=== PATIENT | female | born 1955 | race Caucasian/White ===

== ENCOUNTER → 2022-01-02 17:27 | Outpatient (CLI) | payer MEDICARE, OTHER, SELFPAY ==
--- NOTE | ~2022-01-02 | MR_ITS ---
. EXAMINATION: MR shoulder RT wo con DATE: 01/02/2022 18:04 INDICATION: Anterior right shoulder pain. TECHNIQUE: Magnetic resonance imaging (MRI) of the right shoulder was performed without intravenous c ontrast. Sequences included axial PD-weighted FS FSE, coronal oblique PD-weighted FS FSE and T2-weigh zeb FS FSE, and sagittal oblique T2-weighted FS FSE and T1-weighted FSE. COMPARISON: Right shoulder radiographs 10/10/2021 FINDINGS: Coracoacromial arch: The acromion undersurface is flat in morphology (type I). There is moderate acromioclavicular joint o steoarthritis. There is moderate subacromial/subdeltoid bursitis. Rotator cuff: There is a full-thickness tear of supraspinatus and anterior infraspinatus tendons measuring 2.5 cm a nterior to posterior by 3.2 cm anterior posterior. Partial tear of posterior infraspinatus tendon ext ends 5.1 cm proximal to distal. Teres minor tendon is normal. There is severe subscapularis tendinopa thy. There is a bursal-sided partial tear of distal subscapularis tendon. There is mild fatty atrophy of supraspinatus, infraspinatus, and subscapularis muscle bellies. Biceps tendon and glenoid labrum: Biceps tendon is medially displaced from bicipital groove into the subscapularis tendon tear. There i s a partial tear of biceps tendon. There is tearing of the posterior and superior glenoid labrum. Fluid: There is a small glenohumeral joint effusion. Bones/cartilage: There is shallow partial-thickness cartilage loss of glenoid with subchondral edema superiorly. There is shallow partial-thickness cartilage loss of humeral head. IMPRESSION: 1. Full-thickness rotator cuff tear. 2. Mild glenohumeral joint chondrosis. 3. Moderate acromioclavicular joint osteoarthritis. 4. Partial tear of proximal biceps tendon, which is medially displaced from the bicipital groove into the subscapularis tendon tear. 5. Small glenohumeral joint effusion and moderate subacromial/subdeltoid bursitis. Reviewed, dictated and finalized at location A. IMPRESSION: 1. Full-thickness rotator cuff tear. 2. Mild glenohumeral joint chondrosis. 3. Moderate acromioclavicular joint osteoarthritis. 4. Partial tear of proximal biceps tendon, which is medially displaced from the bicipital groove into the subscapularis tendon tear. 5. Small glenohumeral joint effusion and moderate subacromial/subdeltoid bursit is.
== END ==
PROVIDERS: Visit Provider Orthopaedic Surgery
DX: M75.101 Unspecified rotator cuff tear or rupture of right shoulder, not specified as traumatic (principal); M19.011 Primary osteoarthritis, right shoulder; S46.211A Strain of muscle, fascia and tendon of other parts of biceps, right arm, initial encounter; M75.51 Bursitis of right shoulder; M25.411 Effusion, right shoulder
CPT/HCPCS: 73221

== ENCOUNTER → 2022-06-09 01:20 | Outpatient (CLI) | payer MEDICARE, OTHER, SELFPAY ==
[2022-06-09 11:15] LABS: SARS-CoV-2 RNA PCR Positive
== END ==
PROVIDERS: PCP Internal Medicine; Visit Provider Internal Medicine
DX: U07.1 COVID-19 (principal)
CPT/HCPCS: C9803; U0003; U0005

== ENCOUNTER → 2022-12-29 10:14 | Outpatient (CLI) | payer MEDICARE, OTHER, SELFPAY ==
--- NOTE | ~2022-12-29 | MR_ITS ---
EXAMINATION: MR knee LT wo con DATE: 12/29/2022 10:51 INDICATION: Left knee pain TECHNIQUE: Magnetic resonance imaging (MRI) of the left knee was performed without intravenous contra st. Sequences included coronal PD-weighted FSE, coronal PD-weighted FS FSE, sagittal T2-weighted FSE , sagittal PD-weighted FS FSE and axial PD weighted fat saturated FSE. COMPARISON: None. FINDINGS: Medial compartment: Complex tear of the body and posterior horn of the medial meniscus. There is a band of full/near full -thickness chondral ulceration extending medial collateral across the junction the anterior to centra l weightbearing medial femoral condyle with underlying subarticular edema-like signal change. This se vlad partial thickness chondromalacia with additional subarticular edema-like signal change along the medial and posteromedial margin of the medial tibial plateau. Mild partial-thickness cartilage loss with smooth chondral surface regularity but without degenerative subchondral changes along the centra l to posterior weightbearing medial femoral condyle. Lateral compartment: Small longitudinal horizontal tear of the body of the lateral meniscus which involves the inner third extending to the free edge. Deep chondral fissuring at the central to posterior lateral tibial plate au. Additional mild partial-thickness cartilage loss with some chondral surface regular date: The med ial side of the posterior weightbearing lateral femoral condyle. Patellofemoral compartment: Deep chondral ulceration with underlying cortical irregularity and subarticular edema-like signal tristin nge at the patellar apical ridge, lateral facet and lateral aspect of the lateral trochlea. Distal de ep chondral fissuring with underlying cortical irregularity and minimal subarticular edema-like signa l change at the caudal aspect of the medial trochlea. Ligaments and tendons: Anterior and posterior cruciate ligaments are normal. The medial collateral ligament and fibular tej ateral ligament complex are normal. Mild tendinopathy without tear at the distal quadriceps tendon. P atellar tendon is normal. Additional tendinopathy without tear at the distal semimembranosus tendon. Remainder of the visualized medial and lateral hamstring tendons as well as the iliotibial band are n ormal. Fluid: Small to moderate-sized left knee joint effusion. No loose osteochondral bodies identified. Moderate size knee joint effusion measuring 4.1 x 2.8 x 2.3 cm. Osseous/other: Bone alignment is normal. No fracture or pathologic marrow replacing process. There is edema involvin g both the deep and superficial suprapatellar fat pads can be seen with fat pad impingement syndrome. IMPRESSION: 1. Medial and lateral meniscal tears, the former more extensive and complex. 2. 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 3. Small to moderate-sized left knee joint effusion and moderate-sized Friedman's cyst. 4. Tendinopathy without discrete tear at the distal quadriceps and semimembranosus tendons. Reviewed, dictated and finalized at location A. IMPRESSION: 1. Medial and lateral meniscal tears, the former more extensive and complex. 2. Tricompartmental osteoarthritis mild to moderate with high-grade chondromala tessa in the medial and patellofemoral compartments and mild with moderate grade chondral malacia in the lateral compartment. 3. Small to moderate-sized left knee joint effusion and moderate-sized Friedman's cyst. 4. Tendinopathy without discrete tear at the distal quadriceps and semimembrano ankit tendons.
== END ==
PROVIDERS: PCP Internal Medicine; Visit Provider Orthopaedic Surgery
DX: S83.272A Complex tear of lateral meniscus, current injury, left knee, initial encounter (principal); S83.232A Complex tear of medial meniscus, current injury, left knee, initial encounter; M17.12 Unilateral primary osteoarthritis, left knee; M94.262 Chondromalacia, left knee; M25.462 Effusion, left knee; M71.22 Synovial cyst of popliteal space [Baker], left knee; T14.90XA Injury, unspecified, initial encounter
CPT/HCPCS: 73721

== ENCOUNTER 2023-05-07 07:14 | Outpatient (CLI) | payer MEDICARE, OTHER, SELFPAY ==
--- NOTE | ~2023-05-07 | XR_ITS ---
Left Knee Technique: AP, lateral, and sunrise views were obtained. Clinical History: Osteoarthritis Findings: No fracture or dislocation is seen. Osseous alignment is anatomic. Mild tricompartmental sp urring is present. Soft tissues are unremarkable. No joint effusion is seen. Impression: Mild tricompartmental degenerative spurring. Reviewed, dictated and finalized at location . Impression: Mild tricompartmental degenerative spurring.
== END 2023-05-07 07:15 | disposition home or self-care (01) ==
PROVIDERS: PCP Internal Medicine; Visit Provider Physician Assistant Surgical
DX: M17.12 Unilateral primary osteoarthritis, left knee (principal)
CPT/HCPCS: 73562

== ENCOUNTER 2024-08-15 17:51 | Emergency (ER) | payer MEDICARE, OTHER, SELFPAY ==
[2024-08-15 18:31] VITALS: BP 145/78; PULSE 94; RESP 16; TEMP 36.4; O2SAT 97
--- NOTE | 2024-08-15 19:44 | ED.GENADULT ---
HPI - General Adult General Chief complaint: Extremity Problem,Nontraumatic Stated complaint: R/O DVT left leg Time Seen by Provider: 08/15/24 19:25 History of Present Illness HPI narrative: Patient is a 68-year-old female who presents ER with pain to the posterior aspect of her left Achilles. It is up high closer towards the gastrocnemius. No known trauma. Had mild discomfort yesterday that has worsened throughout the day. She has noticed redness the skin. No fevers or chills. No chest pain or shortness of breath. Went to urgent care he thought she needed a DVT rule out. No recent long-distance travel. No trauma. No surgeries. No history of DVT/ PE. She is not on hormones. Related Data Home Medications Medication Instructions Recorded Confirmed alprazolam 0.25 mg tablet (Xanax) 0.25 mg PO QHS PRN 10/10/21 04/13/24 dextroamphetamine-amphetamine 20 20 mg PO DAILY 10/10/21 04/13/24 mg tablet (Adderall) tramadol 50 mg tablet 50 mg PO Q6H PRN 10/10/21 04/13/24 Allergies Allergy/AdvReac Type Severity Reaction Status Date / Time oxycodone Allergy Unknown NAUSEA Verified 08/15/24 17:52 Review of Systems Constitutional: Constitutional: Reports no additional constitutional complaints Cardiovascular: Cardiovascular: Reports no additional cardiovascular complaints Respiratory: Respiratory: Reports no additional respiratory complaints Musculoskeletal: Musculoskeletal: Reports no additional musculoskeletal complaints Integumentary/Breasts: Skin/Breast: Reports pruritus and Reports erythema PMFSH Past Medical History Medical History Popliteal cyst left knee Primary osteoarthritis of left knee Surgical History Surgical History Status post right partial knee replacement (~06/2019) Family History Family History Mother Family history of congenital heart disease Father Family history of lymphoma Social History Social History Smoking status: Never smoker Do You Feel Safe in your Home?: Yes Lack of Transportation: No Lack of Food: Never True Current Housing: I Have Housing Concerned About Future Housing: No Difficulty Paying Gas/Electric Bills: No Difficulty Paying for Meds: No Currently Unemployed: YES Education: Associate Degree Difficulty w/ Childcare or Family Care: No Exam Narrative: GENERAL: Well-appearing, well-nourished, and in no acute distress. HEAD: Normocephalic, atraumatic. EXTREMITIES: Normal range of motion. No edema. Mild tenderness over the left Achilles 5 in up from the insertion. Mild erythema in the area. No pustules or vesicles. Scattered varicose veins. SKIN: Warm, dry, no rash. NEURO: Alert and oriented x3. PSYCH: Normal mood and affect. Course Course Emergency Course: Early cellulitis versus superficial thrombophlebitis. Recommend warm compresses, anti-inflammatories, and cephalexin. No DVT ultrasound needed Vital Signs Vital signs: Vital Signs Temperature 97.6 F 08/15/24 18:31 Pulse Rate 94 08/15/24 18:31 Respiratory Rate 16 08/15/24 18:31 Blood Pressure 145/78 H 08/15/24 18:31 Pulse Oximetry 97 08/15/24 18:31 Oxygen Delivery Room Air 08/15/24 18:31 Temperature 97.6 F 08/15/24 18:31 Pulse Rate 94 08/15/24 18:31 Respiratory Rate 16 08/15/24 18:31 Blood Pressure 145/78 H 08/15/24 18:31 Pulse Oximetry 97 08/15/24 18:31 Oxygen Delivery Room Air 08/15/24 18:31 Medical Decision Making Vital Signs Vital Signs: Vital Signs Temperature 97.6 F 08/15/24 18:31 Pulse Rate 94 08/15/24 18:31 Respiratory Rate 16 08/15/24 18:31 Blood Pressure 145/78 H 08/15/24 18:31 Pulse Oximetry 97 08/15/24 18:31 Oxygen Delivery Room Air 08/15/24 18:31 Temperature 97.6 F 08/15/24 18:31 Pulse Rate 94 08/15/24 18:31 Respiratory Rate 16 08/15/24 18:31 Blood Pressure 145/78 H 08/15/24 18:31 Pulse Oximetry 97 08/15/24 18:31 Oxygen Delivery Room Air 08/15/24 18:31 Discharge Plan Discharge Clinical Impression: Cellulitis, Superficial thrombophlebitis Patient Disposition: Home, Self-Care Condition: Stable Instructions: Antibiotic Form, Cellulitis (ED), Superficial Thrombophlebitis (ED) Additional Instructions: return the ER if you have fever 100.4? F, have worsening pain, or you are unable to walk. Prescriptions: New cephalexin 500 mg capsule 500 mg PO Q12H Qty: 14 0RF naproxen 375 mg tablet 375 mg PO BID Qty: 14 0RF No Action dextroamphetamine-amphetamine [Adderall] 20 mg tablet 20 mg PO DAILY tramadol 50 mg tablet 50 mg PO Q6H PRN alprazolam [Xanax] 0.25 mg tablet 0.25 mg PO QHS PRN Follow-up/Referrals: Geremias Reyes DO [Physician] - 1 Week Garcia,Hoda Lozano MD [Primary Care Provider] - 1 Week
[2024-08-15 20:03] VITALS: TEMP 36.9
== END 2024-08-15 20:00 | disposition home or self-care (01) ==
PROVIDERS: Emergency Provider Emergency Medicine; PCP Internal Medicine
DX: L03.116 Cellulitis of left lower limb (principal); I80.02 Phlebitis and thrombophlebitis of superficial vessels of left lower extremity; M17.12 Unilateral primary osteoarthritis, left knee; Z96.651 Presence of right artificial knee joint; Z79.899 Other long term (current) drug therapy
CPT/HCPCS: 99284

== ENCOUNTER 2024-09-22 11:54 | Outpatient (CLI) | payer MEDICARE, OTHER, SELFPAY ==
[2024-09-22 12:10] LABS: Hematocrit 39.2 % (37.0-47.0); Hemoglobin 12.8 g/dL (12.0-15.0)
[2024-09-22 12:18] LABS: Albumin Level 4.1 g/dL (3.5-5.1); Estimated Glomerular Filt Rate 45
--- NOTE | 2024-09-22 12:20 | ECG_ITS ---
Test Date: 2024-09-22 12:26:57 Measurements Intervals [place] Rate: 83 P: 47 CA: 116 QRS: 15 QRSD: 85 T: 47 QT: 348 QTc: 409 Interpretive Statements SINUS RHYTHM WITH SHORT CA INTERVAL ABNORMAL ECG Electronically Signed On 09-22-2024 17:25:19 SANITATION SUPERINTENDENT by Romario Paz M.D.
== END 2024-09-22 11:55 | disposition home or self-care (01) ==
PROVIDERS: PCP Internal Medicine; Visit Provider Orthopaedic Surgery
DX: M17.12 Unilateral primary osteoarthritis, left knee (principal); Z01.818 Encounter for other preprocedural examination; R94.31 Abnormal electrocardiogram [ECG] [EKG]
CPT/HCPCS: 36415; 82040; 82565; 85014; 85018; 93005

== ENCOUNTER 2024-11-20 11:10 | Outpatient (CLI) | payer MEDICARE, OTHER, SELFPAY ==
[2024-11-20 12:21] LABS: Basophils Percent Auto 0.9 % (0.2-1.2); Eosinophils Absolute Auto 0.1 K/mm3 (0-0.3); Eosinophils Percent Auto 3.3 % (0-4.4); Hematocrit 36.8 % (37.0-47.0); Hemoglobin 12.2 g/dL (12.0-15.0); Lymphocytes Absolute Auto 1.08 K/mm3 (0.9-3.2); Lymphocytes Percent Auto 25.5 % (18.3-44.2); Mean Corpuscular HGB Conc 33.2 g/dl (32-36); Mean Corpuscular Volume 93.4 fl (80-100); Mean Platelet Volume 8.9 fl (7.4-10.4); Monocytes Absolute Auto 0.5 K/mm3 (0.1-0.6); Monocytes Percent Auto 10.6 % (2.6-8.5); Neutrophils Absolute Auto 2.5 K/mm3 (1.3-6.7); Neutrophils Percent Auto 59.7 % (45.5-73.1); Platelet Count Result 320 k/mm3 (150-375); Red Blood Count 3.94 M/mm3 (4.2-5.4); Red Cell Distribution Width 12.6 % (11.5-14.5); White Blood Count 4.2 K/mm3 (4.5-10.0)
[2024-11-20 12:34] LABS: Albumin Level 4.2 g/dL (3.5-5.1); Estimated Glomerular Filt Rate 46; Glucose 89 mg/dL (65-110)
[2024-11-20 12:38] LABS: Urine Cotinine NEGATIVE
--- OUTSIDE RECORDS SUMMARY | 2024-11-20 13:07 | XMS_ITS | Clinical Summary ---
Author Organization [facility] Address [address] [place] [address] Phone Care Team Providers Care Oyster Planter Name Role Phone Unavailable Unavailable Unavailable Reason for Visit and Chief Complaint gynecologic consultation - The Chief Complaint is: Pt has sensation to urinate often and it seems linked with when she lays down. Pt states that she is up from 3-6X/night to urinate and it is a regular amount and during the day everything is normal Plan of Treatment - OTHER - Last Documented On 10/09/2010 2:39PM ; [facility] Enablex 7.5 MG TB24, 1 daily, 90 days, 0 refills - Last Documented On 10/09/2010 2:39PM ; [facility] Urgency/nocturia with small cystocele. She was given handout on Kegel exercises and started on enablex 7.5 mg po daily. No h/o glaucoma. She was warned about dry mouth and recommended to use gum/mints to help instead of drinking extra fluids. She already avoids caffeine - Last Documented On 10/09/2010 2:39PM ; [facility] Assessments Includes: Assessments from this encounter Findings - Hyperactivity of the bladder - Last Documented On 10/09/2010 2:39PM ; [facility] - Cystocele - Last Documented On 10/09/2010 2:39PM ; [facility] Medical Equipment - Implanted Devices Includes: Current Devices No Medical Equipment Recorded Medications Includes: Medications discussed during this encounter and other current Medications New / Renewed during this visit THIERRY LAGUERRE MD on 10/09/2010 Enablex 7.5 MG OR TB24 Provider: THIERRY LAGUERRE MD 90 day supply: 90, 0 refills Diagnosis: Pharmacy: [facility]) - [address] , [facility], [phone] - Last Documented On 12/11/2010 8:47AM By YON XIONG ; [facility] Current Medications (continue as prescribed) traMADol HCl 50 MG OR TABS 12/11/2010 Provider: Diagnosis: Last Documented On 12/11/2010 8:47AM By YON XIONG ; [facility] Adderall 10 MG OR TABS 12/11/2010 Provider: Diagnosis: PRN Last Documented On 12/11/2010 8:48AM By YON XIONG ; [facility] Medications Administered Includes: Administered Medications from this encounter No Administered Medications Recorded Vital Signs Includes: Vital Signs from this encounter Vital Name 10/09/2010 02:00P Blood Pressure Sitting L 112/64 Pulse Rate-Sitting (bpm) 78 Weight (lb) 159.5 Last Documented: On 10/09/2010 2:07PM ; [facility] Results Includes: Results discussed during this encounter No Results Recorded For Specified Dates History of Present Illness Includes: History of Present Illness from this encounter LINDA THAO is a 55 year old female. - No bowel problems. - Urge incontinence very rarelyonly at night if she waits in bed while needing to go - At night while asleep sudden urge 3-4 times per night - Feeling of something bulging from vagina - Pain during intercourse feels like is hitting something - No hematuria - Urine is unchanged in appearance - Urine odor is normal - No change in urine volume - No changes in urinary habits - No urinary loss of control - Not during the daytime - No dysuria - No burning sensation during urination - No pain in the flank Social History Description Last Updated Sexually active 12/11/2010 Last Documented On 1 1:58PM ; [facility] Not sexually active 10/09/2010 Last Documented On 1 2:39PM ; [facility] In monogamous relationship 12/03/2009 Last Documented On 1 1:58PM ; [facility] Non-smoker 12/03/2009 Last Documented On 1 1:58PM ; [facility] Daily coffee consumption was three cups per day 10/10/2009 Last Documented On 1 1:58PM ; [facility] Marital history 10/10/2009 Last Documented On 1 1:58PM ; [facility] Sexually active with 1 partners in the l ast year 10/10/2009 Last Documented On 1 1:58PM ; [facility] Exercising regularly 10/10/2009 Last Documented On 1 1:58PM ; [facility] Smoking Status Unknown Medical History Includes: Medical History addressed during this encounter Description Last Updated Last mammogram date: 12/17/2009 1 Last Documented On 1 2:39PM ; [facility] Last pap smear date 12/03/2009 10/09/2010 Last Documented On 1 2:39PM ; [facility] 1 12/03/2009 Last Documented On 1 1:58PM ; [facility] History of menopause 12/03/2009 Last Documented On 1 1:58PM ; [facility] LMP: 200612/03/2009 Last Documented On 1 1:58PM ; [facility] Para 1 12/03/2009 Last Documented On 1 1:58PM ; [facility] Result: normal 12/03/2009 Last Documented On 1 1:58PM ; [facility] Result: normal 12/03/2009 Last Documented On 1 1:58PM ; [facility] 1 living children 10/10/2009 Last Documented On 1 1:58PM ; [facility] benign breast lump 10/10/2009 Last Documented On 1 1:58PM ; [facility] A breast self-exam was performed 010 Last Documented On 1 1:58PM ; [facility] A mammogram was performed 08/0410/10/19 10 Last Documented On 1 1:58PM ; [facility] Partner with vasectomy 10/10/2009 Last Documented On 1 1:58PM ; [facility] Family History Includes: Family History addressed during this encounter Description Last Updated Family history of malignant neoplasm of the ovary MAT GMA 12/03/2009 Last Documented On 1 1:58PM ; [facility] No family history of diabetes mellitus 0 12/03/2009 Last Documented On 1 1:58PM ; [facility] No family history of malignant female br east neoplasm 12/03/2009 Last Documented On 1 1:58PM ; [facility] No family history of malignant neoplasm of the large intestine 12/03/2009 Last Documented On 1 1:58PM ; [facility] Review of Systems Includes: Review of Systems from this encounter Systemic: No recent weight change. Head: No headache. Eyes: No vision problems. Otolaryngeal: No hoarseness. Cardiovascular: No chest pain or discomfort and no palpitations. Pulmonary: No shortness of breath. Gastrointestinal: Normal appetite. No nausea, no vomiting, and no hematochezia. No diarrhea and no constipation. Genitourinary: No nocturia. No urinary loss of control and no dysuria. Musculoskeletal: No arthralgias and no localized joint swelling. Neurological: No tingling and no numbness. Psychological: No anxiety, no depression, and no sleep disturbances. Mental Status Includes: Mental Status from this encounter Description No anxiety Functional Status Includes: Functional Status from this encounter No Functional Status Recorded Physical Exam Includes: Physical Exam from this encounter Allergies Includes: Active Allergies No Known Allergies Encounters Encounter Provider Location Date Check-In Time Check-Out Time Diagnosis PROBLEM VISIT THIERRY LAGUERRE MD [facility] NANOTECHNOLOGY ENGINEERING TECHNICIAN 10/09/19 11 1:55PM 2:35PM Bladder Hyperactivity ,Cystocele Clinical Notes Includes: Clinical Notes from this encounter No Clinical Notes Recorded
--- OUTSIDE RECORDS SUMMARY | 2024-11-20 13:07 | XMS_ITS | Referral Summary ---
Author Organization [facility] Address [address] [place] [address] Care Team Providers Care Customer Counter Associate Name Role Phone Jennifer Mcdermott MD Unavailable Hoda Garcia MD Primary Care Provider Encounters Date Type Department Care Team Description 11/03/2024 11:00 AM WASH HELPER Office Visit [facility] [address] [place] [address] [address] [place] [address] Danae Zuluaga NP Pain in both lower extremities (Primary Dx) 10/19/2024 11:30 AM WASH HELPER Infusion [facility] Injection Therapy [address] [facility] [address] [place] [phone] Statin intolerance (Primary Dx); Elevated coronary artery calcium score; Mixed hyperlipidemia 10/06/2024 Telephone [facility] Infusion Therapy [address] [facility] [address] [place] [phone] Rose Joseph RN 10/03/2024 Telephone [facility] Cardiology [address] [facility] 8th [place] [address] [place] [address] Dana Beckham NP Repatha PA (Cara Monson) 09/12/2024 9:35 AM WASH HELPER Lab [facility] [address] [address] Leg cramps 09/11/2024 Orders Only [facility] [address] [facility] [address] [place] [address] Hoda Garcia MD Leg cramps (Primary Dx) 09/06/2024 Telephone [facility] [address] [facility] [address] [place] [address] Hoda Garcia MD Test Results 09/06/2024 11:24 AM WASH HELPER - 09/06/2024 11:59 PM WASH HELPER Hospital Encounter [facility] [address] [place] [address] Dysuria Discharge Disposition: Discharge to home or self care 08/31/2024 Telephone [facility] Cardiology [facility] [facility] 8th [place] [address] [place] [address] Tamara Smith MD cardiac clearance 08/31/2024 1:00 PM WASH HELPER - 08/31/2024 11:59 PM WASH HELPER Hospital Encounter [facility] [address] [place] [address] Left ankle swelling; Swelling of calf Discharge Disposition: Discharge to home or self care from Last 3 Months Allergies Active Allergy Reactions Criticality Noted Date Comments Kyghhzo-Pao-Fof Reductase Inhibitors Muscle pain Medium 07/18/2024 Medications vitamin B complex capsule Take 1 capsule by mouth daily Active calcium carbonate (OS-DARRICK) 1,250 mg (500 mg elemental) tablet Take 1 tablet (1,250 mg total) by mouth daily Active magnesium gluconate (MAGONATE) 500 mg (27 mg elemental) tabletIndications :hypomagnesemia Acti ve calcium carbonate-vitamin D3 1,500 mg (600 mg elemental)-800 unit tablet,chewable Take 1 tablet by mouth once Active aspirin 81 mg enteric coated tablet Take 1 tablet (81 mg total) by mouth daily 30 tablet 11 10/22/19 24 Active valACYclovir (VALTREX) 1 gram tabletIndications :Encounter for HCV screening test for low risk patient TAKE 2 TABLETS (2000 MG) 2 TIMES A DAY FOR 1 DAY. 4 tablet 5 02/09/20 24 Active vitamin E 1,000 unit capsule Take 1 capsule (1,000 Units total) by mouth daily Active cyanocobalamin (Vitamin B-12) 250 mcg tablet Take 1 tablet (250 mcg total) by mouth daily Active inclisiran (LEQVIO) 284 mg/1.5 mL syringeIndication s:hypercholestero lemia,mixed hyperlipidemia Inject 1.5 mL (284 mg total) under the skin once Active dextroamphetamine -amphetamine (AdderalL) 20 mg tablet Take 1 tablet (20 mg total) by mouth daily 30 tablet 10/24/19 25 Active traMADoL (ULTRAM) 50 mg tablet Take 1 tablet (50 mg total) by mouth 2 (two) times a day 60 tablet 10/24/19 25 Active ALPRAZolam (XANAX) 0.25 mg tabletIndications :Anxiety TAKE 2 TABLETS (0.5 MG TOTAL) BY MOUTH NIGHTLY 60 tablet 11/20/19 25 Active dextroamphetamine -amphetamine (AdderalL) 20 mg tablet Take 1 tablet (20 mg total) by mouth daily 30 tablet 09/25/20 24 025 Discontinued(Re order) traMADoL (ULTRAM) 50 mg tablet Take 1 tablet (50 mg total) by mouth 2 (two) times a day 60 tablet 09/25/20 24 025 Discontinued(Re order) ALPRAZolam (XANAX) 0.25 mg tabletIndications :Anxiety Take 2 tablets (0.5 mg total) by mouth nightly 60 tablet 10/20/19 25 025 Discontinued Hospital, Clinic, or Other Facility Administered Medication Ordered Dose Route Frequency Start Date End Date Status perflutren protein-a (OPTISON) 3 mL in sodium chloride 0.9% 8 mL syringe 1 - 8 mL IV Once in imaging 07/22/2023 Active Active Problems Problem Noted Date Diagnosed Date Statin intolerance 10/05/2024 BMI 26.0-26.9,adult 05/18/2024 Overview (07/06/2018): BMI Follow-up includes: nutrition counseling, exercise counseling and education provided. Assessment & Plan (11/03/2024 11:01 AM WASH HELPER): BMI Follow-up includes: nutrition counseling, exercise counseling, and education provided. Assessment & Plan (06/13/2024 1:58 PM CDT): BMI Follow-up includes: nutrition counseling, exercise counseling, and education provided. Assessment & Plan (05/18/2024 11:18 AM CDT): BMI Follow-up includes: nutrition counseling, exercise counseling, and education provided. Assessment & Plan (02/15/2024 2:14 PM CDT): BMI Follow-up includes: nutrition counseling, exercise counseling, and education provided. Assessment & Plan (11/01/2023 12:56 PM WASH HELPER): BMI Follow-up includes: nutrition counseling, exercise counseling, and education provided. Assessment & Plan (07/05/2023 2:04 PM CDT): BMI Follow-up includes: nutrition counseling, exercise counseling, and education provided. Assessment & Plan (05/12/2023 11:22 AM CDT): BMI Follow-up includes: nutrition counseling, exercise counseling, and education provided. Assessment & Plan (02/08/2023 8:11 AM CDT): BMI Follow-up includes: nutrition counseling, exercise counseling and education provided. Assessment & Plan (11/11/2022 10:47 AM WASH HELPER): BMI Follow-up includes: nutrition counseling, exercise counseling and education provided. Assessment & Plan (08/14/2022 10:30 AM WASH HELPER): BMI Follow-up includes: nutrition counseling, exercise counseling and education provided. Assessment & Plan (10/07/2021 2:23 PM WASH HELPER): BMI Follow-up includes: nutrition counseling, exercise counseling and education provided. Assessment & Plan (04/30/2021 7:04 AM CDT): BMI Follow-up includes: nutrition counseling, exercise counseling and education provided. Assessment & Plan (09/24/2020 11:02 AM WASH HELPER): BMI Follow-up includes: nutrition counseling, exercise counseling and education provided. Assessment & Plan (07/03/2020 8:23 AM CDT): BMI Follow-up includes: nutrition counseling, exercise counseling and education provided. Assessment & Plan (01/04/2020 1:21 PM CDT): BMI Follow-up includes: nutrition counseling, exercise counseling and education provided. Assessment & Plan (08/11/2019 7:09 AM WASH HELPER): BMI Follow-up includes: nutrition counseling, exercise counseling and education provided. Assessment & Plan (05/10/2019 11:00 AM CDT): BMI Follow-up includes: nutrition counseling, exercise counseling and education provided. Assessment & Plan (06/17/2018 8:15 AM CDT): BMI Follow-up includes: nutrition counseling, exercise counseling and education provided. Assessment & Plan (08/24/2017 3:27 PM WASH HELPER): BMI Follow-up includes: nutrition counseling, exercise counseling and education provided. Low serum vitamin B12 05/18/2024 Lack of concentration 05/18/2024 Elevated coronary artery calcium score 4 Bilateral leg pain 02/18/2024 Stage 3a chronic kidney disease 05/11/2023 Assessment & Plan (05/11/2023 5:28 PM CDT): Avoid NSAIDs Stay hydrated CMP today Elevated serum creatinine 02/08/2023 Assessment & Plan (02/08/2023 9:38 AM CDT): Progressively increasing since December 2022. Recent SPEP and PTH unremarkable. Will check renal ultrasound , CMP, CBC, microalbumin today. Continue to avoid NSAIDs and qkqt-fim-hprpjjp supplements/cold medications. If worsening consider Nephrology consultation Nocturnal muscle cramp 02/08/2023 Assessment & Plan (02/08/2023 9:37 AM CDT): Will check magnesium level today. Encouraged adequate hydration throughout the day. Microscopic hematuria 11/11/2022 Assessment & Plan (02/08/2023 9:38 AM CDT): History of pyelonephritis August 2022. Recommend repeating UA today. Will check renal ultrasound considering increasing creatinine. Assessment & Plan (11/11/2022 11:18 AM WASH HELPER): Was likely 2/[address] Will plan for annual UA and return to urology prn Urinary frequency 08/17/2022 Assessment & Plan (11/01/2023 12:53 PM WASH HELPER): UA to rule out UTI Possible OAB Assessment & Plan (02/08/2023 9:38 AM CDT): Urinalysis ordered today. Recommend fluid restriction 2 hours prior to bed. Assessment & Plan (08/17/2022 7:05 PM WASH HELPER): UA to rule out UTI Chronic bilateral thoracic back pain 05/26/2022 Assessment & Plan (05/26/2022 9:34 AM CDT): Refer to physical therapy and for x-rays. May use vhbb-ysz-pzswufk NSAIDs p.r.n.. Other chest pain 04/24/2022 Assessment & Plan (04/24/2022 5:31 PM CDT): EKG normal. Will initiate stress test given family history. Could also be GERD related vs stress/ anxiety. Recommend trial of famotidine 40 mg daily. Discussed warning signs of when to seek emergency care for chest pain including chest pain that does not go away, severe in nature, associated dizziness, shortness of breath or fatigue. Mixed hyperlipidemia 04/24/2022 Assessment & Plan (05/11/2023 5:26 PM CDT): Lipid panel today Encouraged lifestyle modifications Assessment & Plan (04/24/2022 5:31 PM CDT): Lipids reviewed from September 2021. Her LDL is modestly elevated. Recommend Mediterranean diet. Recommend repeating lipids fasting. If elevated would consider adding statin for further cardiovascular prophylaxis. Multiple joint pain 10/07/2021 Assessment & Plan (10/07/2021 3:01 PM WASH HELPER): Sed rate, CRP and rheumatoid factor. Medicare annual wellness visit, subsequent 10/07 Assessment & Plan (10/07/2021 3:01 PM WASH HELPER): A medicare annual wellness visit was completed today. Th patient completed a depression screen, functional assessment screen, health risk assessment screen. All elements of this exam were completed as outlined by [facility]. Fatigue 09/24/2020 Assessment & Plan (11/01/2023 12:53 PM WASH HELPER): Will rule out hypothyroidism, electrolyte derangements, liver/kidney dysfunction, anemia. Recent B12 level normal Assessment & Plan (05/26/2022 9:34 AM CDT): Improved with improvement in right shoulder pain after injection. Assessment & Plan (04/24/2022 5:32 PM CDT): Labs as ordered. Will check stress test today as well. Would consider sleep study if normal. Assessment & Plan (09/24/2020 11:05 AM WASH HELPER): Check B12 and Vit D level. Anxiety 09/24/2020 Assessment & Plan (05/11/2023 5:26 PM CDT): Table Continue xanax prn Assessment & Plan (10/07/2021 3:01 PM WASH HELPER): Stable. Continue Xanax 1 or 2 p.o. q.h.s. p.r.n. anxiety or sleep. Assessment & Plan (04/30/2021 7:19 AM CDT): Patient states she is not taking the Wellbutrin as it did not work she is also not taking Cymbalta did not work either. She is taking Xanax 1 or 2 at night to help with anxiety and to help with sleep. Assessment & Plan (09/24/2020 11:05 AM WASH HELPER): Alprazolam as prescribed Start wellbutrin 150 mg daily. Osteopenia of multiple sites 07/03/2020 Assessment & Plan (05/11/2023 5:26 PM CDT): Continue follow up with bone health Assessment & Plan (07/03/2020 9:02 AM CDT): Check vitamin D level today Palpitations 07/03/2020 Assessment & Plan (07/03/2020 9:01 AM CDT): Likely related to anxiety. Has had a normal cardiac evaluation. Start cymbalta Chronic bilateral low back pain without sciatica 07/03/2020 Assessment & Plan (11/11/2022 11:19 AM WASH HELPER): Continue tramadol 100mg qAM Discussed concerns about increasing frequency due to risk for dependence and tolerance Did not start the Rx'ed celebrex due to concerns about side effects Recommend starting aleve qhs to help with nighttime pain Continue HEP Assessment & Plan (08/17/2022 7:04 PM WASH HELPER): Given persistent worsening symptoms with radiculopathy and muscle cramps potentially related to spinal stenosis as well as lack of improvement with conservative management including physical therapy and steroid injections, will obtain MRI of both thoracic and lumbar spine to determine next best steps Assessment & Plan (10/07/2021 3:00 PM WASH HELPER): Increase in intensity and duration. Discussed referral to pain management for a holistic approach including PT and possible epidural injection. Continue tramadol 50 mg p.o. b.i.d. p.r.n. pain. Assessment & Plan (04/30/2021 7:19 AM CDT): Stable. Well controlled with tramadol 50 mg b.i.d.. Assessment & Plan (07/03/2020 9:02 AM CDT): Discussed risks of continued opioid therapy. Can continue tramadol 50 BID but discussed using Tylenol or Aleve first line and trying to use Tramadol more sparingly. Start cymbalta Follow up 3 months Primary insomnia 01/04/2020 Assessment & Plan (09/24/2020 11:04 AM WASH HELPER): Would like to start wellbutrin 150 mg daily to see if this helps. Assessment & Plan (01/04/2020 2:04 PM CDT): Continue xanax 1-2 tabs nightly New daily persistent headache 08/24/2017 Assessment & Plan (11/01/2023 1:52 PM WASH HELPER): Broad differential including tension headache, migraine headache, intracranial neoplasm, aneurysm, dehydration Normal neuro exam If she has UTI, will wait to see if symptoms improve with tx If no UTI or headaches persist despite treatment of UTI, will obtain brain MRI for new onset headaches in individual > 45 years old Assessment & Plan (09/24/2020 11:02 AM WASH HELPER): Stopped the cymbalta. Assessment & Plan (06/17/2018 8:39 AM CDT): Stable. Manages his tramadol p.r.n.. Assessment & Plan (08/24/2017 4:23 PM WASH HELPER): Refer to Dr. Juan Gonzalez Neurology, patient saw him 11/13 for same complaint. Reviewed MRI brain on 11/13 and T flare intensity right occipital. Refer to Neurology to re eval due to same location as headaches. Office visit took 45 minutes due to patients questions and reviewing MRI brain from 11/13. Attention deficit disorder 02/10/2014 Overview (12/30/2016): ADHD (attention deficit hyperactivity disorder) Assessment & Plan (05/11/2023 5:26 PM CDT): Stable Continue adderall 20 daily Assessment & Plan (11/11/2022 11:20 AM WASH HELPER): Well controlled Continue adderall 20 daily Assessment & Plan (10/07/2021 3:00 PM WASH HELPER): Stable. Continue Adderall 20 mg daily. Assessment & Plan (04/30/2021 7:18 AM CDT): Stable. Continue Adderall 20 mg daily. Assessment & Plan (09/24/2020 11:02 AM WASH HELPER): Continues to take adderall 20 mg daily Compliant on her medications. Assessment & Plan (07/03/2020 9:02 AM CDT): Continue Adderall 20 daily Follow up 3 months Assessment & Plan (01/04/2020 2:04 PM CDT): Continue Adderall 20 daily Follow up 3 months Counseled patient that in order to prescribe controlled substances such as Adderall or Xanax, we will perform urine drug screening. If UDS is positive for and illicit substance, patient will receive 1 warning with counseling. If it is positive a 2nd time, we will stop prescribing the drug. Also informed patient that we will review the PDMP and if we find that patient is receiving controlled substances from another provider, we will stop prescribing controlled substances. Patient expresses understanding and is in agreement with this policy. Assessment & Plan (08/11/2019 7:25 AM WASH HELPER): Albino. Adderall 20 mg [address] Mcdermott. Assessment & Plan (06/17/2018 8:39 AM CDT): Albino. Manages with Adderall p.r.n.. Osteoarthritis 02/10/2014 Overview (12/31/2016): OA Resolved Problems Problem Noted Date Diagnosed Date Resolved Date Pressure sensation in ear, bilateral 11/11/2022 05/11/2023 Assessment & Plan (11/11/2022 11:22 AM WASH HELPER): Suspect eustachian tube dysfunction Recommend flonase BMI 24.0-24.9, adult 05/26/2022 023 Assessment & Plan (05/26/2022 9:06 AM CDT): BMI Follow-up includes: nutrition counseling, exercise counseling and education provided. Impetigo 04/30/2021 05/11/2023 Assessment & Plan (04/30/2021 7:20 AM CDT): Bactroban ointment. Annual physical exam 09/24/2020 022 Assessment & Plan (09/24/2020 11:01 AM WASH HELPER): Medication and allergies reviewed and updated. Past medical, surgical, family history reviewed and updated. Vital signs and BMI reviewed. Healthy lifestyle recommended, including regular exercise (daily aerobic & twice weekly resistance training), prudent diet, regular self breast & skin examinations (1 week after cycle begins), annual mammography (starting @ age 40), calcium & vitamin D supplementation, colonoscopy (starting @ age 50 for average risk person), regular gynecologic examinations with pelvic exam & PAP smear, periodic blood pressure monitoring, & bone-density testing (starting @ age 65 in average-risk person) Cervical strain 05/10/2019 08/11/2019 Assessment & Plan (05/10/2019 11:27 AM CDT): IAilyn NP have personally reviewed pertinent Hospital/ER data including [employer] and Care Everywhere if available. This patient's discharge medication list has been reviewed and reconciled with her medication list in the office chart and has also been reviewed with patient and/or caregiver. I have noted any changes. Encourage patient to take 1 Aleve in the a.m. And p.m. With food. Discontinue baclofen. Prescription for tizanidine sent to pharmacy. Refer for cervical x- rays. Patient requests physical therapy order. Other fatigue 06/17/2018 08/11/2019 Assessment & Plan (07/06/2018 2:10 PM CDT): Likely situational, will recheck CBC and follow Assessment & Plan (06/17/2018 8:39 AM CDT): Labs today. Sinus complaint 06/17/2018 08/11/2019 Assessment & Plan (06/17/2018 8:39 AM CDT): Start antibiotic. Irrigate sinuses with saline. If no improvement or symptoms progress contact office. Immunizations Immunization Administration Dates Next Due Influenza, Quadrivalent, Hig h Dose, Preservative Free, Intrr 07/05/2023,07/10/2022 Influenza, Quadrivalent, Spl it, Preservative Free, Intramuscular 08/15/2021,07/03/2020,08/11/2019 Influenza, Trivalent, Adjuva nted, Intramuscular 06/18/2015 Influenza, Trivalent, IM (MDV) 06/27/2018,2016,07/02/2011 Influenza, Trivalent, Preser vative Free, Intramuscular 10/23/2013 Influenza, Trivalent, Recomb inant, Egg Free, Preservative Free, Antibiotic Free, IM (FLUBLOK) 06/18/2015 Influenza, Unspecified 06/27/2024,2021,07/29/2021,07/13,07/13/2017 Moderna SARS-CoV-2 Monovalen t Vaccination (12+ YRS) 08/30/2021,11/04/2020,10/08/2020 Pfizer SARS-CoV-2 Monovalent Vaccination (12+ Yrs) PURPLE 02/05/2022 Pneumococcal Conjugate PCV 13 10/07/2021 Pneumococcal Polysaccharide PPV23 05/12/2023 Tdap 06/26/2014 ZOSTER LIVE 03/09/2017 Social History Tobacco Use Types Packs/Day Years Used Date Smoking Tobacco: Never Smokeless Tobacco: Never Tobacco Cessation:Counseling Given: Not Answered Comments:Never Alcohol Use Standard Drinks/Week Comments No 0 (1 standard drink = 0.6 oz pur e alcohol) AUDIT-C Answer Date Recorded Q1: How often do you have a drink containing alc ohol? Never 10/14/2022 Average Number of Drinks Not on file 023 Frequency of Binge Drinking Not on file 09/27 PHQ-2 Answer Date Recorded PHQ-2 Total Score (If total score is 3 or more points, staff should administer the PHQ-9) 0 11/03/2024 Comments No Sex and Gender Information Value Date Recorded Sex Assigned at Not on file Legal Sex Female 11:31 PM WASH HELPER Gender Identity Not on file Sexual Orientation Not on file Last Filed Vital Signs Vital Sign Reading Time Taken Comments Blood Pressure 126/84 11/03/2024 11:01 AM WASH HELPER Pulse 86 11/03/2024 11:01 AM WASH HELPER Temperature 36.8 C (98.2 F) 08/15/2024 11:03 AM WASH HELPER Respiratory Rate 16 08/15/2024 11:03 AM WASH HELPER Oxygen Saturation 98% 11/03/2024 11:01 AM WASH HELPER Inhaled Oxygen Concentration - - Weight 70.4 kg (155 lb 1.6 oz) 11/03/2024 11:01 AM WASH HELPER Height 165.1 cm (5' 5 ) 11/03/2024 11:01 AM WASH HELPER Body Mass Index 25.81 11/03/2024 11:01 AM WASH HELPER Plan of Treatment Not on file Goals Goal Patient Goal Type Associated Problems Recent Progress Patient-Stated? Author CCM Chronic Pain Care Plan Chronic Care Management No Scarlet Levi RN Note: Problem: Chronic Pain Goals: 1. Minimize further functional decline 2. Maximize quality of life 3. Control pain Strategies: - Activity/exercise program recommendation - Conservative stepwise pain medicine strategy with multi-disciplinary approach - Recommend healthy lifestyle strategies and compensatory methods as needed Reduce the likelihood of falling Lifestyle No Scarlet Levi RN Note: Below are four things you can do to prevent falls: Begin an exercise program to improve your leg strength & balance Ask your doctor or pharmacist to review your medicines Get annual eye check-ups & update your eyeglasses Make your home safer by: Removing clutter & tripping hazards Putting railings on all stairs & adding grab bars in the bathroom Having good lighting, especially on stairs Contact your local community or senior center for information on exercise, fall prevention programs, or options for improving home safety. Procedures Procedure Name Priority Date/Time Associated Diagnosis Comments EGFR Routine 09/12/2024 9:37 AM WASH HELPER Leg cramps MAGNESIUM Routine 09/12/2024 9:37 AM WASH HELPER Leg cramps COMPREHENSIVE METABOLIC PANEL Routine 09/12/2024 9:37 AM WASH HELPER Leg cramps URINALYSIS, MICROSCOPIC ONLY Routine 09/06/2024 11:28 AM WASH HELPER Dysuria URINE CULTURE Routine 09/06/2024 11:28 AM WASH HELPER URINALYSIS AND REFLEX TO MICROSCOPIC AND CULTURE Routine 09/06/2024 11:28 AM WASH HELPER Dysuria US VEIN DUPLEX LOWER EXTREMITY LEFT LIMITED Schedule Routine, Read Routine (OP Routine) 08/31/2024 1:57 PM WASH HELPER Left ankle swelling Swelling of calf STOOL DNA COLOGUARD Routine 05/26/2024 8:52 AM CDT Screen for colon cancer DEXA TBS AXIAL SKELETON BONE DENSITY 1 OR MORE SITES Schedule Routine, Read Routine (OP Routine) 02/11/2024 11:50 AM CDT Osteopenia of multiple sites SCREENING MAMMOGRAM BILATERAL W HAYDER Schedule Routine, Read Routine (OP Routine) 12/08/2021 HEPATITIS C ANTIBODY Routine 07/03/2020 10:34 AM CDT Encounter for HCV screening test for low risk patient HM COLONOSCOPY Routine 12/25/2016 from Last 3 Months or Most Recently Relevant to Health Maintenance Results * (ABNORMAL) eGFR (09/12/2024 9:37 AM WASH HELPER) eGFR 52(L) >=60 mL/min/1. 73 m2 Comment: Interpretive Data Reference Interval Normal >/= 90 mL/min/1.73m2 Mildly decreased* 60 - 89 mL/min/1.73m2 Mildly to moderately decreased 45 - 59 mL/min/1.73m2 Moderately to severely decreased 30 - 44 mL/min/1.73m2 Severely decreased 15 - 29 mL/min/1.73m2 Kidney Failure < 15 mL/min/1.73m2 *Relative to young adult level Estimated glomerular filtration rate is determined by the 2020 CKD-EPI equation recommended by the National Kidney Foundation (A Unifying Approach to GFR Estimation: Recommendations of the NKF-ASK Task Force on Reassessing the Inclusion of Race in Diagnosing Kidney Disease, JASN 2020). The CKD-EPI equation should not be used for patients with unstable renal function and has not been validated in children and those over 70. Current interpretive data was last reviewed 2021. Testing performed by: [facility], [address] [place] [address]., [id number] Blood 09/12/2024 9:37 AM WASH HELPER 09/12/2024 1:02 PM WASH HELPER Hoda Garcia MD LAB BLOOD ORDERABLES F inal Result Performing Organization Address City/[facility]/ZIP Co de Phone Number [facility] ([place]) [address] [place] [address] * Magnesium (09/12/2024 9:37 AM WASH HELPER) Magnesium 2.0 1.4 - 2.5 mg/dL Comment:Testing performed by : [facility], [address] [place] [address]., [id number] Blood 09/12/2024 9:37 AM WASH HELPER 09/12/2024 12:57 PM WASH HELPER Hoda Garcia MD LAB BLOOD ORDERABLES F inal Result [facility] ([place]) [address] [facility] [place] [address] * (ABNORMAL) Comprehensive metabolic panel (09/12/2024 9:37 AM WASH HELPER) Sodium 139 135 - 145 mmol/L Comment:Testing performed by : [facility], [address] [place] [address]., [address] Potassium, pl 4.5 3.3 - 4.9 mmol/L [facility] ([place]) Comment:Testing performed by : [facility], [address] [place] [address]., [address] Chloride 103 97 - 110 mmol/L [facility] ([place]) Comment:Testing performed by : [facility], [address] [place] [address]., [address] CO2 26 22 - 32 mmol/L [facility] ([place]) Comment:Testing performed by : [address], [address] Anion gap 10 2 - 15 mmol/L [facility] ([place]) Comment:Testing performed by : [address], [address] BUN 24 6 - 25 mg/dL [facility] ([place]) Comment:Testing performed by : [facility], [address] [place] [address], [address] Creatinine 1.15(H) 0.60 - 1.10 mg/dL [facility] ([place]) Comment:Testing performed by : [address], [address] Glucose 89 70 - 199 mg/dL [facility] ([place]) Comment: Interpretive Data Fasting glucose >/= 126 mg/dl is diagnostic for diabetes. Fasting is defined as no caloric intake for at least 8 hours. Fasting glucose between 100 mg/dl to 125 mg/dl is diagnostic of prediabetes. In a patient with classic symptoms of hyperglycemia or hyperglycemic crisis, a random glucose >/= 200 mg/dl is diagnostic for diabetes. In the absence of unequivocal hyperglycemia, results should be confirmed by repeat testing. The classification and Diagnosis of Diabetes Diabetes Care 2021; 46: S19-S40. Current interpretive data was last revised 2022. Testing performed by: [facility], [address] [place] [address]., [address] Calcium 10.2 8.5 - 10.3 mg/dL [facility] ([place]) Comment:Testing performed by : [address] [address] Bilirubin, total 0.3 0.1 - 1.2 mg/dL [facility] ([place]) Comment:Testing performed by : [address] [address] Protein, pl 7.2 6.5 - 8.5 g/dL [facility] ([place]) Comment:Testing performed by : [facility], [address] [place] [address], [address] Albumin 4.1 3.5 - 5.0 g/dL [facility] ([place]) Comment:Testing performed by : [facility], [address] [place] [address], [address] Alk phos 70 40 - 130 Units/L [facility] ([place]) Comment:Testing performed by : [facility], [address] [place] [address], [address] ALT 15 7 - 45 Units/L [facility] ([place]) Comment:Testing performed by : [facility], [address] [place] [address], [address] AST 25 10 - 45 Units/L [facility] ([place]) Comment:Testing performed by : [address], [address] Blood 09/12/2024 9:37 AM WASH HELPER 09/12/2024 12:57 PM WASH HELPER us Hoda Garcia MD LAB BLOOD ORDERABLES F inal Result [facility] [address] [facility] Department [place] [address] * (ABNORMAL) Urinalysis reflex to microscopic and culture Urine (09/06/2024 11:28 AM WASH HELPER) Color, ur Red(A) Yellow Comment:Testing performed by : [facility], [address] [place] [address], [address] Clarity, ur Turbid(A) Clear [facility] ([place]) Comment:Testing performed by : [address], [address] Specific gravity, ur 1.032(H) 1.003 - 1.030 [facility] ([place]) Comment:Testing performed by : [address], [address] pH, urine 5.5 [facility] ([place]) Comment: Interpretive Data U rine pH is affected by diet, medications, systemic acid-base disturbances, and renal tubular function. pH may affect urinary stone formation. For example, urine pH below 6.0 may help reduce the tendency for calcium phosphate stones and pH greater than 6.0 may reduce the tendency for uric acid stone formation. Source: [facility] [employer] Current Interpretive Data was last revised on 2017 Testing performed by: [facility], [address] [place] [address]., [address] Protein, ur ql 1+(A) Negative [facility] ([place]) Comment:Testing performed by : [facility], [address] [place] [address], [address] Glucose, ur ql Negative Negative [facility] ([place]) Comment:Testing performed by : [address], [address] Ketones, ur Negative Negative [facility] ([place]) Comment:Testing performed by : [address], [address] Bilirubin, ur Negative Negative [facility] ([place]) Comment:Testing performed by : [facility], [address] [place] [address], [address] Blood, ur 3+(A) Negative [facility] ([place]) Comment:Testing performed by : [address], [address] Urobilinogen, ur <2.0 <2.0 mg/dL [facility] ([place]) Comment:Testing performed by : [address], [address] Nitrite, ur Negative Negative [facility] ([place]) Comment:Testing performed by : [address], [address] Leukocyte esterase, ur 3+(A) Negative [facility] ([place]) Comment:Testing performed by : [address], [address] UA reflex comment Reflex to microscopic UA will be performed. [facility] ([place]) Comment:Testing performed by : [address], [address] Urine 09/06/2024 11:2 8 AM WASH HELPER 09/06/2024 7:50 PM WASH HELPER Hoda Garcia MD LAB MICROBIOLOGY - GEN ERAL ORDERABLES Final Result [facility] ([place]) 1 [facility] [place] [address] * (ABNORMAL) Urinalysis, microscopic only (09/06/2024 11:28 AM WASH HELPER) WBC, ur 11-20(A) 0 - 5 /HPF Comment:Testing performed by : [facility], [address] [place] [address]., [address] RBC, ur >50(A) 0 - 2 /HPF [facility] ([place]) Comment:Testing performed by : [facility], [address] [place] [address], [address] Culture Reflex Comment Reflex to urine culture will be performed. [facility] ([place]) Comment:Testing performed by : [address], [address] Urine 09/06/2024 11:2 8 AM WASH HELPER 09/06/2024 7:50 PM WASH HELPER Hoda Garcia MD LAB URINE ORDERABLES F inal Result Performing Organization Address [facility] Co de Phone Number [facility] ([place]) 1 [facility] [place] [address] * (ABNORMAL) Urine culture Urine (09/06/2024 11:28 AM WASH HELPER) Report Final Report: Greater than or equal to 100,000 colonies/mL of Escherichia coli Plus growth of clinically insignificant bacterial jared. (.) Comment:Testing performed by : [facility], [address] [place]., [address] Organism ESCHERICHIA COLI [facility] ([place]) Organism PLUS GROWTH OF CLINICALLY INSIGNIFICANT JARED. [facility] ([place]) Urine 09/06/2024 11:2 8 AM WASH HELPER 09/07/2024 12:09 AM WASH HELPER Narrative [facility] ([place]) - 09/08/2024 4:18 PM WASH HELPER Urine culture reflexed based upon urinalysis results. Testing performed by [facility] ([phone]) Organism Antibiotic Method Susceptibility Escherichia coli Ampicillin INTERPRETATION Susceptible Escherichia coli Cefazolin INTERPRETATION Susceptible Escherichia coli Nitrofurantoin INTERPRETATION Susceptible Escherichia coli Gentamicin INTERPRETATION Susceptible Escherichia coli Trimethoprim with Sulfamethoxazole IN TERPRETATION Susceptible Escherichia coli Meropenem INTERPRETATION Susceptible Escherichia coli Cefepime INTERPRETATION Susceptible Escherichia coli Ciprofloxacin INTERPRETATION Susceptible Escherichia coli Ceftazidime INTERPRETATION Susceptible Escherichia coli Ceftriaxone INTERPRETATION Susceptible Escherichia coli Piperacillin/Tazobactam INTERPRETATIO N Susceptible Escherichia coli Cephalexin INTERPRETATION Susceptible Escherichia coli Cefuroxime-axetil INTERPRETATION Susceptible Escherichia coli Cefdinir INTERPRETATION Susceptible Hoda Garcia MD LAB MICROBIOLOGY - GEN ERAL ORDERABLES Final Result [facility] ([place]) [address] [facility] Department of [place], [place] [id number] * US VEIN DUPLEX LOWER EXTREMITY LEFT LIMITED, UNILATERAL (08/31/2024 1:57 PM WASH HELPER) Anatomical Region Laterality Modality Vascular Left Ultrasound 08/31/2024 Narrative 09/02/2024 1:06 PM WASH HELPER App[employer] Job ID: [id number] AppTap Document ID: [id number] Dictated date/time: [id number] LEFT LOWER EXTREMITY VENOUS DUPLEX. REASON FOR EXAM Swelling. FINDINGS ON THE LEFT The left common femoral, femoral, popliteal, posterior tibial, peroneal, greater saphenous demonstrate spontaneous phasic flow that augment and are compressible. INTERPRETATION No evidence of deep or superficial venous thrombosis of the left lower extremity. Job ID/Internal Job ID: [id number] Hoda Garcia MD [facility] [place] PROCEDURES Nida l Result * Stool DNA - Cologuard (05/26/2024 8:52 AM CDT) Pathologist [facility] Stool DNA - Cologuard Negative Negative [facility] (CLIA #:[id number]) Comment: NEGATIVE TEST RESULT. A negative Cologuard result indicates a low likelihood that a colorectal cancer (CRC) or advanced adenoma (adenomatous polyps with more advanced pre-malignant features) is present. The chance that a person with a negative Cologuard test has a colorectal cancer is less than 1 in 1500 (negative predictive value >99.9%) or has an advanced adenoma is less than 5.3% (negative predictive value 94.7%). These data are based on a prospective cross-sectional study of 10,000 individuals at average risk for colorectal cancer who were screened with both Cologuard and colonoscopy. (Lakisha Gallegos et al, N Engl J Med 2014;370(14):1042-9421) The normal value (reference range) for this assay is negative. COLOGUARD RE-SCREENING RECOMMENDATION: Periodic colorectal cancer screening is an important part of preventive healthcare for asymptomatic individuals at average risk for colorectal cancer. Following a negative Cologuard result, the [place] [employer] Society and U.S. Multi-Society Task Force screening guidelines recommend a Cologuard re-screening interval of 3 years. References: [place] [employer] Guideline for Colorectal Cancer Screening: https://www.cancer.org/cancer/qrexh-dilxfd-ydegbm/jsjrkqozu-ftkupwmvi-vsxzyrg/ac s-rec ommendations.html.; Aubrey DK, Joe BURNETT, Crystal SerratoK, Colorectal Cancer Screening: Recommendations for Physicians and Patients from the U.S. Multi-Society Task Force on Colorectal Cancer Screening , Am J Gastroenterology 2017; 112:0145-4418. TEST DESCRIPTION: Composite algorithmic analysis of stool DNA-biomarkers with hemoglobin immunoassay. Quantitative values of individual biomarkers are not reportable and are not associated with individual biomarker result reference ranges. Cologuard is intended for colorectal cancer screening of adults of either sex, 45 years or older, who are at average-risk for colorectal cancer (CRC). Cologuard has been approved for use by the U.S. FDA. The performance of Cologuard was established in a cross sectional study of average-risk adults aged 50-84. Cologuard performance in patients ages 45 to 49 years was estimated by sub-group analysis of near-age groups. Colonoscopies performed for a positive result may find as the most clinically significant lesion: colorectal cancer [4.0%], advanced adenoma (including sessile serrated polyps greater than or equal to 1cm diameter) [20%] or non- advanced adenoma [31%]; or no colorectal neoplasia [45%]. These estimates are derived from a prospective cross-sectional screening study of 10,000 individuals at average risk for colorectal cancer who were screened with both Cologuard and colonoscopy. (Lakisha Rosado al, N Engl J Med 2014;370(14):1322-2524.) Cologuard may produce a false negative or false positive result (no colorectal cancer or precancerous polyp present at colonoscopy follow up). A negative Cologuard test result does not guarantee the absence of CRC or advanced adenoma (pre-cancer). The current Cologuard screening interval is every 3 years. ([place] [employer] Society and U.S. Multi-Society Task Force). Cologuard performance data in a 10,000 patient pivotal study using colonoscopy as the reference method can be accessed at the following location: [email or web address]/results. Additional description of the Cologuard test process, warnings and precautions can be found at [email or web address]. Stool 05/26/2024 8:52 AM CDT 05/27/2024 11:27 AM CDT Danae Zuluaga NP LAB BODY FLUIDS AND STOOLS CARYL ALEGRIA Final Result [facility] (CLIA #:[id number]) [address] [place] [address] * Dexa TBS Axial Skeleton Bone Density 1 or more sites (02/11/2024 11:50 AM CDT) Anatomical Region Laterality Modality Wrist, Body N/A Radiographic Kiera ging Narrative 02/14/2024 4:10 PM CDT Patient Name: Natasha Harrington Date of : 1955 Date of scan: 02/11/2024 Bone mineral density was performed on a [employer] Discovery Densitometer. Based on machine cross-calibration and precision studies the least significant changes of this densitometer is 0.024 g/cm2 at the spine, 0.020 g/cm2 at the total proximal femur, and 0.014g/cm2 at the forearm. HISTORY: This is a 68 y.o. postmenopausal female with a history of low bone mass. She reports that she has never smoked. She has never used smokeless tobacco. Currently on treatment with calcium and vitamin D, previously treated with alendronate (Fosamax) and diuretics, and current complaint of back pain. INDICATIONS: Menopause status and history of low bone mass. FINDINGS: BONE MINERAL DENSITY OF THE LUMBAR SPINE Bone Mineral Density (BMD) of the lumbar spine was measured from L1-L3 and the average density was calculated to be 0.968 gm/cm2. This corresponds to a T-score (standard deviations from the mean of young adults) of -0.5. When compared to the previous study of 01/08/2023 there has been no significant changes in bone density. BONE MINERAL DENSITY OF THE PROXIMAL FEMUR Bone Mineral Density (BMD) of the left hip total was found to be 0.747 gm/cm2. This corresponds to a T-score standard deviations from the mean of young adults of -1.6. Femoral neck is 0.658 gm/cm2 with a T-score (standard deviations from the mean of young adults) of -1.7. When compared to the previous study of 01/08/2023 there has been a -0.031 gm/cm (-3.9%) decrease in bone density that is considered significant. BONE MINERAL DENSITY OF THE FOREARM Bone Mineral density (BMD) of the left proximal 1/3 of the radius measures 0.586 gm/cm2. This corresponds to a T-score (standard deviations from the mean of young adults) of -1.8. When compared to the previous study of 01/08/2023 there has been no significant changes in bone density. A forearm bone density study was performed in addition to the routine study because of severe degenerative disease . SUMMARY: Bone mineral density shows evidence of low bone mass at the proximal femur and forearm and moderately increased fracture risk (Osteopenia). There has been a significant decrease in bone density since previous measurement. L4 excluded from bone mineral density analysis of the lumbar spine because of bone density being more than 1 standard deviation discrepant relative to one adjacent vertebra. Clinical correlation is recommended. The lumbar spine Trabecular Bone Score is 1.354 which suggests normal bone microarchitecture, compared to the general population. Final decisions regarding diagnostic or therapeutic recommendations should include BMD, TBS, additional clinical risk factors as well the clinical context of the patient. Please see attached TBS results for further details. ADDITIONAL COMMENTS: Postmenopausal Women and Men Over 50: Diagnostic criteria: Osteoporosis: BMD at or below -2.5 T-score; Osteopenia (low bone mass): BMD between -1.0 and -2.5 T-score. If the patient has a history of a fragility fracture, a fracture that occurred with trauma equivalent to a fall from a standing position or less, then the diagnosis is osteoporosis regardless of bone density. The history and data sections of the bone mineral density scan were prepared by RT Luan who is accredited by the International Society of Clinical Densitometry. The overall patient assessment and scan interpretation were performed by Mi Singh MD who is certified by the International Society of Clinical Densitometry. [id number] Mi Singh MD IMG DXA PROCEDURES Final R esult * Screening Mammogram Bilateral W Hayder (12/08/2021) Anatomical Region Laterality Modality Breast Bilateral Mammography Impressions 12/08/2021 Negative screening mammagram BI RADS Category 1: Negative Follow up 1 year Historical Provider IMG MAMMO PROCEDURES Nida l Result * Hepatitis C antibody (07/03/2020 10:34 AM CDT) Hep C Ab NON-REACTI VE NON-REACT GUY [facility] SIGNAL TO CUT-OFF 0.02 <1.00 [facility] Comment: HCV antibody was non-reactive. There is no laboratory evidence of HCV infection. In most cases, no further action is required. However, if recent HCV exposure is suspected, a test for HCV RNA (test code 40367) is suggested. For additional information please refer to http://education.CSL DualCom.RetSKU/faq/ZLK67q6 (This link is being provided for informational/ educational purposes only.) Blood specimen (specimen) 07/03/2020 10:34 AM CDT 07/04/2020 4:15 AM CDT Hoda Garcia MD LAB MICROBIOLOGY - GEN ERAL ORDERABLES Final Result [facility] [id number] [id number] * COLONOSCOPY (12/25/2016) Colonoscopy Normal us Historical Provider HEALTH MAINTENANCE Final Result from Last 3 Months or Most Recently Relevant to Health Maintenance Insurance [employer] [place] MEDICARE [facility] MEDICARE [employer]ICARE [employer] [place] [place] [address] MEDICARE [employer] Care Teams Customer Counter Associate Relationship Specialty [place] [id number] [facility] [address] [place] [address] PCP - General Internal Medicine 02/12/20 [place] [id number] [facility] [address] [place] [address] Rheumatology 08/02/17
--- OUTSIDE RECORDS SUMMARY | 2024-11-20 13:07 | XMS_ITS | Clinical Summary ---
Author Organization [facility] Address [address] [place] [address] Phone Care Team Providers Care Punch Press Setter Name Role Phone Unavailable Unavailable Unavailable Reason for Visit and Chief Complaint gynecologic annual exam - The Chief Complaint is: wwe and pap Plan of Treatment - ROUTINE PELVIC EXAM - Last Documented On 12/11/2010 9:00AM ; [facility] Lab: SUREPATH RFX HPV - Last Documented On 12/11/2010 9:00AM ; [facility] ? SCREEN MAMMOGRAM NECRadiology/*MAMMOGRAPHY: Mammography - Last Documented On 12/11/2010 9:00AM ; [facility] ? Cervical Pap SmearIn office procedures/*Clia Waived Labs: Pap Smear Taken - Last Documented On 12/11/2010 9:00AM ; [facility] ? SCREEN MAL NEOP-RECTUMIn office procedures/*Clia Waived Labs: *FIT Test (Fecal Occult Test) - Last Documented On 12/11/2010 9:00AM ; [facility] Pending Tests Order Diagnosis Results Due Ordering Kaycee asherder In office procedures - *[facility]ived Labs Pap Smear Taken SCREEN MAL NEOP-CERVIX 12/25/10 THIERRY LAGUERRE MD Last Documented On 1 8:58AM ; [facility] In office procedures - *[facility]ia Waived Labs *FIT Test (Fecal Occult Test) SCREEN MAL NEOP-RECTUM 12/25/10 THIERRY LAGUERRE MD Last Documented On 1 8:58AM ; [facility] Radiology @ other - *MAMMOGRAPHY Mammography SCREEN MAMMOGRAM NEC 12/25/10 THIERRY DIAZ MD Last Documented On 1 9:07AM ; [facility] Lab SUREPATH PAP RFX HR HPV 01/10/11 Froylan LAGUERRE MD Last Documented On 1 8:44AM ; [facility] Instructions to patient Instructions for patient : B reast Self Exam discussed Last Documented On 1 8:49AM ; [facility] Education and Decision Aids were provided during visit for: STD screening offered and de clined Last Documented On 1 8:49AM ; [facility] Bone Mineral Density Screeni ng guidelines reviewed Last Documented On 1 8:49AM ; [facility] Patient Education: Daily norm cium and vitamin D Last Documented On 1 8:49AM ; [facility] Patient Education: weight be aring exercise Last Documented On 1 8:49AM ; [facility] Colonoscopy screening guidel ki discussed Last Documented On 1 8:49AM ; [facility] Assessments Includes: Assessments from this encounter Findings - Routine pelvic exam - Last Documented On 12/11/2010 9:00AM ; [facility] - Screening Malig. Neoplasm Rectum - Last Documented On 12/11/2010 9:00AM ; [facility] - No malignant neoplasm of the ovary - Last Documented On 12/11/2010 9:00AM ; [facility] Instructions Includes: Instructions from this encounter Instructions to patient Instructions for patient : B reast Self Exam discussed Last Documented On 1 8:49AM ; [facility] Education and Decision Aids were provided during visit for: STD screening offered and de clined Last Documented On 1 8:49AM ; [facility] Bone Mineral Density Screeni ng guidelines reviewed Last Documented On 1 8:49AM ; [facility] Patient Education: Daily norm cium and vitamin D Last Documented On 1 8:49AM ; [facility] Patient Education: weight be aring exercise Last Documented On 1 8:49AM ; [facility] Colonoscopy screening guidel ki discussed Last Documented On 1 8:49AM ; [facility] Medical Equipment - Implanted Devices Includes: Current Devices No Medical Equipment Recorded Medications Includes: Medications discussed during this encounter and other current Medications Discontinued / Stopped on this date THIERRY LAGUERRE MD on 10/09/2010 Enablex 7.5 MG OR TB24 Provider: THIERRY LAGUERRE MD Diagnosis: Last Documented On 12/11/2010 8:47AM By YON XIONG ; [facility] Current Medications (continue as prescribed) traMADol HCl 50 MG OR TABS 12/11/2010 Provider: Diagnosis: Last Documented On 12/11/2010 8:47AM By YON XIONG ; [facility] Adderall 10 MG OR TABS 12/11/2010 Provider: Diagnosis: PRN Last Documented On 12/11/2010 8:48AM By YON XIONG ; [facility] Medications Administered Includes: Administered Medications from this encounter No Administered Medications Recorded Vital Signs Includes: Vital Signs from this encounter Vital Name 12/11/2010 08:30A Blood Pressure Sitting R 118/66 BP Cuff Size Regular Pulse Rate-Sitting (bpm) 78 Height (in) 64.5 Weight (lb) 162 Body Mass Index (kg/m2) 27.4 Body Surface Area (m2) 1.8 Last Documented: On 12/11/2010 8:46AM ; [facility] Results Includes: Results discussed during this encounter No Results Recorded For Specified Dates History of Present Illness Includes: History of Present Illness from this encounter LINDA THAO is a 55 year old female. - No unusual bleeding. - No pelvic pain - No vaginal discharge She tried enablex, which didn't really help (nocturia). But she has stopped drinking things with artificial sweeteners and the nocturia has improved Social History Description Last Updated Sexually active 12/11/2010 Last Documented On 1 9:00AM ; [facility] Social history unchanged 12/11/2010 Last Documented On 1 9:00AM ; [facility] In monogamous relationship 12/03/2009 Last Documented On 1 8:38AM ; [facility] Non-smoker 12/03/2009 Last Documented On 1 8:38AM ; [facility] Daily coffee consumption was three cups per day 10/10/2009 Last Documented On 1 8:38AM ; [facility] Marital history 10/10/2009 Last Documented On 1 8:38AM ; [facility] Sexually active with 1 partners in the l ast year 10/10/2009 Last Documented On 1 8:38AM ; [facility] Exercising regularly 10/10/2009 Last Documented On 1 8:38AM ; [facility] Smoking Status Unknown Procedures and Surgical History Includes: Procedures from this encounter Procedures Code Diagnosis Performing Provider Service L ocation Service Date cervical Pap smear 76745 Last Documented On 1 8:49AM ; [facility] a fecal occult blood test was negative 31223 Last Documented On 1 8:49AM ; [facility] Surgical History Last Updated Surgical / procedural history L breast l umpectomy 20 years ago, Benign 12/11/2010 Last Documented On 1 9:00AM ; [facility] Medical History Includes: Medical History addressed during this encounter Description Last Updated No recent change in medical history 11/25 Last Documented On 1 9:00AM ; [facility] A colonoscopy was performed 2006 WNL Last Documented On 1 9:00AM ; [facility] Patient recently had a dexa scan 009 osteopenia 12/11/2010 Last Documented On 1 9:00AM ; [facility] Last mammogram date: 12/17/2009 1 Last Documented On 1 8:38AM ; [facility] Last pap smear date 12/03/2009 10/09/2010 Last Documented On 1 8:38AM ; [facility] 1 12/03/2009 Last Documented On 1 8:38AM ; [facility] History of menopause 12/03/2009 Last Documented On 1 8:38AM ; [facility] LMP: 200612/03/2009 Last Documented On 1 8:38AM ; [facility] Para 1 12/03/2009 Last Documented On 1 8:38AM ; [facility] Result: normal 12/03/2009 Last Documented On 1 8:38AM ; [facility] Result: normal 12/03/2009 Last Documented On 1 8:38AM ; [facility] 1 living children 10/10/2009 Last Documented On 1 8:38AM ; [facility] benign breast lump 10/10/2009 Last Documented On 1 8:38AM ; [facility] A breast self-exam was performed 010 Last Documented On 1 8:38AM ; [facility] A mammogram was performed 08/0410/10/19 10 Last Documented On 1 8:38AM ; [facility] Partner with vasectomy 10/10/2009 Last Documented On 1 8:38AM ; [facility] Family History Includes: Family History addressed during this encounter Description Last Updated Family history changed Seamus olivares recently passed from a massive heart attack 12/11/2010 Last Documented On 1 9:00AM ; [facility] No family history of diabetes mellitus 0 12/03/2009 Last Documented On 1 8:38AM ; [facility] No family history of malignant female br east neoplasm 12/03/2009 Last Documented On 1 8:38AM ; [facility] No family history of malignant neoplasm of the large intestine 12/03/2009 Last Documented On 1 8:38AM ; [facility] Review of Systems Includes: Review of Systems [...] Location Date Check-In Time Check-Out Time Diagnosis 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 Neoplasm Rectum Clinical Notes Includes: Clinical Notes from this encounter No Clinical Notes Recorded
--- OUTSIDE RECORDS SUMMARY | 2024-11-20 13:07 | XMS_ITS | Clinical Summary ---
Author Organization [facility] Address [address] [place] [address] Care Team Providers Care Air Brake Man Name Role Phone Unavailable Primary Care Provider Unavailabl e Source Comments [facility],non-owned Affiliates and Associated Physician Practices is amultiple site organization consisting of ambulatory clinics and hospital sitesin [place], [place], [place] and [place]. This disclosure is being madepursuant to the Care Everywhere program and may not contain all information available regarding this patient. Last updated 18.[facility] Social History Tobacco Use Types Packs/Day Years Used Date Smoking Tobacco: Never Assessed Sex and Gender Information Value Date Recorded Sex Assigned at Not on file Gender Identity Not on file Sexual Orientation Not on file Plan of Treatment Health Maintenance Due Date Last Done Comments BONE DENSITY TESTING 1955 COLOGUARD (AGES 45-75) - COL ON CA SCREENING 1956 COLON MONITORING 1956 COLONOSCOPY - COLON CA SCREENING 1956 CT COLONOGRAPHY - COLON CA SCREENING 1955 Colorectal Cancer Screening 1956 FIT - COLON CA SCREENING 1956 FLEX SIG - COLON CA SCREENING 1956 LIPID TESTING 1955 MAMMOGRAM 1955 MEDICARE AWV 12 MONTHS 1956 HEPATITIS C SCREENING 08/16/1974 DTAP/TDAP/TD VACCINES (1 - Tdap) 1975 PNEUMOCOCCAL VACCINE 50+ (1 of 1 - PCV) 2006 ZOSTER VACCINE (1 of 2) 2006 COVID-19 VACCINE (1 - 2023-2 5 season) 2024 INFLUENZA VACCINE (#1) 2024 DEPRESSION SCREENING 09/27/2024 Respiratory Syncytial Virus (RSV) Vaccine Pt: or over 60 yrs (1 - 1-dose 75+ series) 2031 HEPATITIS B VACCINE Aged Out No longe r eligible based on patient's age to complete this topic HIB VACCINE Aged Out No longer eligi ble based on patient's age to complete this topic HPV VACCINE Aged Out No longer eligi ble based on patient's age to complete this topic MENINGOCOCCAL (Group B) VACCINE Aged Out No longer eligible based on patient's age to complete this topic MENINGOCOCCAL VACCINE Aged Out No muriel mell eligible based on patient's age to complete this topic Natasha Harrington Personal/Famil y Self [address] [place] [id number]
--- OUTSIDE RECORDS SUMMARY | 2024-11-20 13:07 | XMS_ITS | Patient Health Summary ---
Author Organization [facility] Address [address] [place] [address] Care Team Providers Care Mechanical Developer Prover Name Role Phone Unavailable Primary Care Provider Unavailabl e Note from [facility],non-owned Affiliates and Associated Physician Practices is amultiple site organization consisting of ambulatory clinics and hospital sitesin [place], [place], [place] and [place]. This disclosure is being madepursuant to the Care Everywhere program and may not contain all information available regarding this patient. Last updated 18.[facility] Social History Tobacco Use Types Packs/Day Years Used Date Smoking Tobacco: Never Assessed Sex and Gender Information Value Date Recorded Sex Assigned at Not on file Gender Identity Not on file Sexual Orientation Not on file Procedures * DERMATOPATHOLOGY(Performed 01/05/2024) * DERMATOPATHOLOGY(Performed 01/11/2023) * DERMATOPATHOLOGY(Performed 11/25/2022) * DERMATOPATHOLOGY(Performed 11/18/2021) Results * DERMATOPATHOLOGY (01/05/2024 11:42 AM CDT) Only the most recent of4 resultswithin the time period is included. Case Report Dermatopathology Report Case: [id number] Authorizing Provider: Veda Alvarez MD Collected: 01/05/2024 11:42 AM Ordering Location: [facility] - Received: 01/06/2024 01:27 PM [facility] Lab Pathologist: Kiah Boucher MD Specimen: Skin, right superior brow 4 1:41 PM CDT DERMATOPATHOLOGY LABORATORY Final Diagnosis Specimen A. SKIN, right superior brow: BASAL CELL CARCINOMA, NODULAR TYPE (C44.319) 4 1:41 PM CDT DERMATOPATHOLOGY LABORATORY Clinical History [place] papule 1:41 PM CDT DERMATOPATHOLOGY LABORATORY Gross Description Specimen A: Received is one formalin filled container labeled with the patient's name and designated right superior brow. The specimen consists of a shave biopsy measuring 2x1x1 mm. Jar 0. 1:41 PM T DERMATOPATHOLOGY LABORATORY Microscopic Description Specimen A. SKIN, right superior brow: Within the dermis there are aggregates of basaloid cells with a high nuclear to cytoplasmic ratio and peripheral palisading. 1:41 PM CDT DERMATOPATHOLOGY LABORATORY Disclaimer An external and internal positive and negative controls are appropriate for the histochemical, immunohistochemical and immunofluorescence stain(s) in this case (if any), except where stated explicitly. The performance characteristics of the stain(s) cited in this report were developed and its performance characteristic determined by the Dermatopathology Laboratory at [facility], directed by Dr. Sofia Burden. These tests need not be, and therefore are not, approved by the [place] Food and Drug Administration. The tests are used for clinical purposes. Billing Codes Specimen Charges Stain Charges 96518 1 1:41 PM CDT DERMATOPATHOLOGY LABORATORY Embedded Images 1:41 PM CDT DERMATOPATHOLOGY LABORATORY Pathology/Cytolo gy TISSUE SPECIMEN FROM SKIN / Unknown 01/05/2024 11:42 AM CDT 01/06/2024 1:27 PM CDT Veda Alvarez MD LAB - PATHOLOGY/CYTO LOGY ORDERABLES DERMATOPATHOLOGY LABORATORY [facility] - Department of Dermatology [facility] Medicine [address] [place] [address], [address] [phone]
--- OUTSIDE RECORDS SUMMARY | 2024-11-20 13:07 | XMS_ITS | Encounter Summary ---
Author Organization [facility] Healthcare Address [address] [place] [address] Care Team Providers Care Service Administrator Name Role Phone Jennifer Mcdermott MD Unavailable Hoda Garcia MD Primary Care Provider Encounter Details Date Type Department Care Team (Late st Contact Info) Description 07/24/2024 Orders Only [facility] Health Information Management [address] [place] [id number] Scanning, Provider Social History Tobacco Use Types Packs/Day Years Used Date Smoking Tobacco: Never Smokeless Tobacco: Never Comments:Never Alcohol Use Standard Drinks/Week Comments No [...] points, staff should administer the PHQ-9) 0 06/13/2024 Comments No Sex and Gender Information Value Date Recorded Sex Assigned at Not on file Legal Sex 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 Author CCM Chronic Pain Care Plan Chronic Care Management No Scarlet Levi, RN Note: Problem: Chronic Pain Goals: 1. Minimize further functional decline 2. Maximize quality of life 3. Control pain Strategies: - Activity/exercise program recommendation - Conservative stepwise pain medicine strategy with multi-disciplinary approach - Recommend healthy lifestyle strategies and compensatory methods as needed Reduce the likelihood of falling Lifestyle Scarlet Bianchi, RN Note: Below are four things you [...] on stairs Contact your local community or [facility] for information on exercise, fall prevention programs, or options for improving home safety. documented as of this encounter Procedures Procedure Name Priority Date/Time Associated Diagnosis Comments SCAN - RADIOLOGY/IMAGING 07/24/2024 documented in this encounter Results * SCAN - RADIOLOGY/IMAGING (07/24/2024) Anatomical Region Laterality Modality Other us Provider Scanning Final Result documented in this encounter Visit Diagnoses Not on filedocumented in this encounter Care Teams Service Administrator Relationship Specialty [place] [id number] [address] [facility] [address] [place] [address] PCP - General Internal Medicine 02/12/20 [place] [id number] [facility] [address] [place] [address] Rheumatology 08/02/17 documented as of this encounter
--- OUTSIDE RECORDS SUMMARY | 2024-11-20 13:07 | XMS_ITS | Clinical Summary ---
Author Organization [facility] Address [address] [place] [address] Phone Care Team Providers Care Sales Representative Graphic Art Name Role Phone Hoda Garcia MD Primary Care Provider [phone] Allergies No known active allergies Medications valACYclovir (VALTREX) 1 gram tablet 0 7 Active ALPRAZolam (XANAX) 0.25 mg tablet Take 0.25 mg by mouth. 7 Active dextroamphetamin e-amphetamine (ADDERALL) 20 mg tablet Take 20 mg by mouth. 8 Active traMADol (ULTRAM) 50 mg tablet Take 50 mg by mouth. 8 Active dextroamphetamin e-amphetamine (ADDERALL) 20 mg tablet Take 20 mg by mouth. 1 Active ALPRAZolam (XANAX) 0.25 mg tablet Take 0.25-0.5 mg by mouth. 1 Active traMADoL (ULTRAM) 50 mg tablet Take 50 mg by mouth. 1 Active doxycycline hyclate (VIBRAMYCIN) 100 mg capsule TAKE 1 CAPSULE BY MOUTH TWICE A DAY FOR 10 DAYS WITH FOOD 2 Active mupirocin (BACTROBAN) 2 % Ointment Apply to affected area. 1 Active estradioL (VAGIFEM) 10 mcg tabletIndication s:Vaginal atrophy Insert 1 Tablet (10 mcg) vaginally twice weekly. hs 26 Tablet 3 2 Active ciprofloxacin HCl (CIPRO) 500 mg tablet TAKE 1 TABLET BY MOUTH TWICE A DAY FOR 10 DAYS 2 Active fluconazole (DIFLUCAN) 100 mg tablet Take 100 mg by mouth daily. 2 Active amoxicillin-clav ulanate (AUGMENTIN) 875-125 mg tablet TAKE 1 TABLET BY MOUTH TWICE A DAY FOR 10 DAYS 3 Active COVID-19 At-Home Test Kit USE DIRECTED 3 Active alendronate (FOSAMAX) 70 mg tabletIndication s:Osteopenia, unspecified location TAKE 1 TABLET (70 MG) BY MOUTH EVERY 7 DAYS. EMPTY STOMACH BEFORE OTHER MEDS,WITH 8OZ OF WATER, STAY UPRIGHT 30 MIN 12 Tablet 3 Active atorvastatin (LIPITOR) 10 mg tablet Take 10 mg by mouth daily. Active vitamin E 1,000 unit Capsule Take 1,000 Units by mouth daily. Active Active Problems Problem Noted Date Diagnosed Date Multiple joint pain 10/07/2021 Overview (12/15/2021): Last Assessment & Plan: Sed rate, CRP and rheumatoid factor. Impetigo 04/30/2021 Overview (12/15/2021): Last Assessment & Plan: Bactroban ointment. Anxiety 09/24/2020 Overview (12/15/2021): Last Assessment & Plan: Stable. Continue Xanax 1 or 2 p.o. q.h.s. p.r.n. anxiety or sleep. Chronic bilateral low back pain without sciatica 07/03/2020 Overview (12/15/2021): Last Assessment & Plan: Increase in intensity and duration. Discussed referral to pain management for a holistic approach including PT and possible epidural injection. Continue tramadol 50 mg p.o. b.i.d. p.r.n. pain. Palpitations 07/03/2020 Overview (12/15/2021): Last Assessment & Plan: Likely related to anxiety. Has had a normal cardiac evaluation. Start cymbalta Primary insomnia 01/04/2020 Overview (02/21/2020): Last Assessment & Plan: Continue xanax 1-2 tabs nightly Screening mammogram, encounter for 06/17/2018 Overview (07/06/2018): Last Assessment & Plan: Current. Screening for colon cancer 06/17/2018 Overview (07/06/2018): Last Assessment & Plan: Current. Physical exam, annual 06/17/2018 Overview (07/06/2018): Last Assessment & Plan: Patient comes in today for a routine physical exam. Health maintenance objectives were discussed and exam performed as noted. Other fatigue 06/17/2018 Overview (07/06/2018): Last Assessment & Plan: Likely situational, will recheck CBC and follow Sinus complaint 06/17/2018 Overview (07/06/2018): Last Assessment & Plan: Start antibiotic. Irrigate sinuses with saline. If no improvement or symptoms progress contact office. Chronic nonintractable headache 08/24/2017 Overview (07/06/2018): Last Assessment & Plan: Stable. Manages his tramadol p.r.n.. BMI 25.0-25.9,adult 08/24/2017 Overview (07/06/2018): Overview: BMI Follow-up includes: nutrition counseling, exercise counseling and education provided. Last Assessment & Plan: BMI Follow-up includes: nutrition counseling, exercise counseling and education provided. BMI 24.0-24.9, adult 08/24/2017 Overview (08/27/2019): Overview: BMI Follow-up includes: nutrition counseling, exercise counseling and education provided. Last Assessment & Plan: BMI Follow-up includes: nutrition counseling, exercise counseling and education provided. Vaginal atrophy 05/24/2017 Osteopenia 04/20/2016 Overview (04/20/2016): Hip and forearm Normal spine Arthritis 07/25/2014 Overview (07/06/2018): Overview: Arthritis Last Assessment & Plan: Stable: Manages with tramadol p.r.n.. Abnormal mammogram 02/27/2014 Overview (02/27/2014): left Osteoarthrosis 02/10/2014 Overview (07/06/2018): Overview: OA Attention deficit disorder 02/10/2014 Overview (07/06/2018): Overview: ADHD (attention deficit hyperactivity disorder) Last Assessment & Plan: Stable. Manages with Adderall p.r.n.. External hemorrhoids without mention of complica tion 12/16/2011 Encounters Date Type Department Care Team Description 11/14/2024 External Device Data ST[facility] ABSTRACTION Provider, Abstract 10/18/2024 External Device Data [facility] ABSTRACTION Provider, Abstract 10/17/2024 External Device Data [facility] ABSTRACTION Provider, Abstract 10/10/2024 External Device Data [facility] ABSTRACTION Provider, Abstract from Last 3 Months Immunizations Immunization Administration Dates Next Due (ADACEL/BOOSTRIX)(10 YR UP) TDAP VACCINE, 0.5ML, IM 06/26/2014 (PREVNAR 13)(6 WKS UP) PNEUM OCOCCAL CONJUGATE (PCV13) 0.5 ML, IM 10/07/2021 (SPIKEVAX) (12 YRS UP PRIMAR Y SERIES) COVID-19 VACCINE - MRNA-[id number](PF) 100 MCG/0.5 ML IM SUSP 08/30/2021,11/04/2020,10/08/2020 INFLUENZA VACCINE QUADRIVALE NT 6 MOS UP PF IM 07/03/2020,08/11/2019 Influenza Seasonal Unspecifi ed Formulation IM 06/27/2018,07/13/2017 Influenza Seasonal Unspecifi ed Formulation PF IM 10/23/2013 Influenza Vaccine Tri Rcmb 18+ PF IM 06/18/2015 Influenza Vaccine Tri Split 4+ Im 07/02/2011 Influenza, Unspecified Formulation 07/29/2021, Zoster Vaccine Live SQ 03/10/2017 Family History Medical History Relation Name Comments Healthy Brother 1 Healthy Brother 2 Cancer Father non hodgkins ly mphoma Breast Cancer Maternal Aunt took [place] Heart Disease Mother massive heart attack Healthy Other h-becka Heart Disease Other h-becka Healthy Son Ovarian Cancer Neg Hx Relation Name Status Comments Brother 1 Alive Brother 2 Alive Father Maternal Aunt Maternal Grandfather Maternal Grandmother Mother Other h-becka Alive Paternal Grandfather Paternal Grandmother Son Alive Social History Tobacco Use Types Packs/Day Years Used Date Smoking Tobacco: Never Smokeless Tobacco: Never Tobacco Cessation:Counseling Given: Not Answered Alcohol Use Standard Drinks/Week Comments Yes 0.8 (1 standard drink = 0.6 oz p ure alcohol) Comments No Sex and Gender Information Value Date Recorded Sex Assigned at Not on file Legal Sex 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 Gender Identity Not on file Sexual Orientation Not on file Occupation Industry Job Start Date Job End Date Not on file Not on file Not on file Not on file Last Filed Vital Signs Vital Sign Reading Time Taken Comments Blood Pressure 160/81 12/15/2021 9:36 AM CDT Pulse 82 05/24/2017 9:16 AM CDT Temperature - - Respiratory Rate - - Oxygen Saturation - - Inhaled Oxygen Concentration - - Weight 69.4 kg (153 lb) 02/02/2024 1:49 PM CDT Height 165.1 cm (5' 5 ) 02/02/2024 1:49 PM CDT Body Mass Index 25.46 02/02/2024 1:49 PM CDT Plan of Treatment Health Maintenance Due Date Last Done Comments Pre-Diabetes and Diabetes Screening 1955 FIT-DNA Q 3 years 2001 FIT/FOBT Q 1 year 2001 Flex Sig/CT Colonography Q 5 years 2001 ZOSTER VACCINE (2 of 3) 05/05/2017 03/10/2017 INFLUENZA VACCINE (#1) 2024 3, 07/10/2022, 08/15/2021, Additional history exists COVID-19 Vaccine (5 - 2023-2 5 season) 2024 02/05/2022, 08/30/2021, 11/04/2020, Additional history exists DTAP/TDAP/TD VACCINES (2 - T d or Tdap) 06/26/2024 06/26/2014 BREAST CANCER SCREENING 02/01/2025 02/02/20 24, 12/16/2022, 12/08/2021, Additional history exists OSTEOPOROSIS SCREENING 02/10/2026 , 02/11/2024, 01/08/2023, Additional history exists COLORECTAL SCREENING 06/02/2027 06/02/2017 (Previously completed), 09/27/2007 Colorectal Cancer Screening 06/02/2027 RSV VACCINE (60+ or ) (1 - 1-dose 75+ series) 2031 PNEUMOCOCCAL VACCINE 65+ YEARS Completed 05/12/2023 , 10/07/2021 Procedures Procedure Name Priority Date/Time Associated Diagnosis Comments MAMMO 3D RISHI SCREEN BILAT W OR WO CAD Routine 02/02/2024 1:37 PM CDT Encounter for screening mammogram for breast cancer XR DEXA BONE DENSITY AXIAL 1 OR MORE SITES Routine 12/08/2021 11:02 AM CDT Postmenopausal from Last 3 Months or Most Recently Relevant to Health Maintenance Results * MAMMO SCRN BILAT 3D RISHI W OR WO CAD (02/02/2024 1:37 PM CDT) Anatomical Region Laterality Modality Breast Bilateral Mammography 02/02/2024 1:37 PM CDT Impressions 02/02/2024 4:48 PM CDT IMPRESSION: Negative bilateral screening mammogram. Recommend routine followup. OVERALL FINAL ASSESSMENT: BI-RADS 1 - Negative DICTATION LOCATION: [facility] 02/02/2024 4:48 PM CDT BILATERAL SCREENING DIGITAL MAMMOGRAMS WITH COMPUTER ASSISTED DIAGNOSIS WITH TOMOGRAPHY DATE: 02/02/2024 1:37 PM HISTORY: Routine screening. COMPARISON: 12/16/2022 and 12/08/2021 TECHNIQUE: A bilateral screening mammogram was performed. Low-dose full-field digital breast tomosynthesis examination was performed with 2D and 3D acquisitions. Examination is read in conjunction with computer aided detection. BREAST COMPOSITION: Heterogeneously dense, which limits the sensitivity of mammography. FINDINGS: No new masses, suspicious calcifications, or areas of asymmetry or distortion are identified. The images were reviewed using the CAD system. Procedure Note Yasemin Gutiérrez MD - 02/02/2024 BILATERAL SCREENING DIGITAL MAMMOGRAMS WITH COMPUTER ASSISTED DIAGNOSIS WITH TOMOGRAPHY DATE: 02/02/2024 1:37 PM HISTORY: Routine screening. COMPARISON: 12/16/2022 and 12/08/2021 TECHNIQUE: A bilateral screening mammogram was performed. Low-dose full-field digital breast tomosynthesis examination was performed with 2D and 3D acquisitions. Examination is read in conjunction with computer aided detection. BREAST COMPOSITION: Heterogeneously dense, which limits the sensitivity of mammography. FINDINGS: No new masses, suspicious calcifications, or areas of asymmetry or distortion are identified. The images were reviewed using the CAD system. IMPRESSION: Negative bilateral screening mammogram. Recommend routine followup. OVERALL FINAL ASSESSMENT: BI-RADS 1 - Negative DICTATION LOCATION: [facility] us Sven Loco MD MAMMO ORDERABLES Final Resul t * XR DEXA BONE DENSITY AXIAL 1 OR MORE SITES (12/08/2021 11:02 AM CDT) Anatomical Region Laterality Modality Digital Radiogra phy 12/08/2021 11:0 2 AM CDT Narrative 12/08/2021 11:10 AM CDT XR DEXA BONE DENSITY AXIAL 1 OR MORE SITES DATE: 12/08/2021 11:02 AM HISTORY: 66 years old Female with post menopausal symptoms. PROCEDURE: Planar images of the lumbar spine and hip(s) using a [employer] DEXA scanner for bone mineral density determination (BMD). Absolute bone mineral density measurements (in gm/cm^2) are available on the original PACS report. Comparison is made with the prior bone density performed 04/15/2016 FINDINGS: Lumbar Spine (L1-L4) T-score: -0.9 : -5.1% change Left femoral neck T-score: -2.0 : +3.4% change Right femoral neck T-score: -2.2 : +1.0% change Comments: None IMPRESSION Osteopenic bone mineral density. STATISTICAL CHANGE: Significant decrease in bone mineral density of the lumbar spine since the prior study. A statistically significant change is defined as a change of greater than 2.5 standard deviations in the least significant difference from the prior study. Least significant differences are defined as follows: Lumbar spine: +/- 0.010 g/cm2 Femoral neck: +/- 0.014 g/cm2 Forearm radius 33%: +/- 0.020 g/cm2 DEFINITIONS: Normal: T-score above -1.0 Osteopenia T-score less than -1.0 and above -2.5 Osteoporosis: T-score < -2.5 FRAX FRACTURE RISK ASSESSMENT: Risk factors: None. 10 Year Probability Of Fracture -Major Osteoporotic: 12.0% -Hip: 2.2% -Comparison population: [place], A major osteoporotic fracture is defined as a fracture of the spine, forearm, hip or shoulder. FOLLOW-UP RECOMMENDATIONS: Patients without high risk factors for osteoporosis: T-score -1.0 to -1.5 - Consider repeat BMD in 5-10 years T-score -1.5 to -2.0 - Consider repeat BMD in 3-5 years T-score -2.0 to - 2.5 - Consider repeat BMD every 2 years Patients on treatment for osteoporosis: 1-2 years after initiation of treatment and every 2 [address] Antonio Nix DO DICTATION LOCATION: Location 1 - [facility] Procedure Note Antonio Nix DO - 12/08/2021 XR DEXA BONE DENSITY AXIAL 1 OR MORE SITES DATE: 12/08/2021 11:02 AM HISTORY: 66 years old Female with post menopausal symptoms. PROCEDURE: Planar images of the lumbar spine and hip(s) using a [employer] DEXA scanner for bone mineral density determination (BMD). Absolute bone mineral density measurements (in gm/cm^2) are available on the original PACS report. Comparison is made with the prior bone density performed 04/15/2016 FINDINGS: Lumbar Spine (L1-L4) T-score: -0.9 : -5.1% change Left femoral neck T-score: -2.0 : +3.4% change Right femoral neck T-score: -2.2 : +1.0% change Comments: None IMPRESSION Osteopenic bone mineral density. STATISTICAL CHANGE: Significant decrease in bone mineral density of the lumbar spine since the prior study. A statistically significant change is defined as a change of greater than 2.5 standard deviations in the least significant difference from the prior study. Least significant differences are defined as follows: Lumbar spine: +/- 0.010 g/cm2 Femoral neck: +/- 0.014 g/cm2 Forearm radius 33%: +/- 0.020 g/cm2 DEFINITIONS: Normal: T-score above -1.0 Osteopenia T-score less than -1.0 and above -2.5 Osteoporosis: T-score < -2.5 FRAX FRACTURE RISK ASSESSMENT: Risk factors: None. 10 Year Probability Of Fracture -Major Osteoporotic: 12.0% -Hip: 2.2% -Comparison population: [place], A major osteoporotic fracture is defined as a fracture of the spine, forearm, hip or shoulder. FOLLOW-UP RECOMMENDATIONS: Patients without high risk factors for osteoporosis: T-score -1.0 to -1.5 - Consider repeat BMD in 5-10 years T-score -1.5 to -2.0 - Consider repeat BMD in 3-5 years T-score -2.0 to - 2.5 - Consider repeat BMD every 2 years Patients on treatment for osteoporosis: 1-2 years after initiation of treatment and every 2 years [address] Antonio Nix, DICTATION LOCATION: Location 1 - [facility] Sven Loco MD DIAGNOSTIC IMAGING ORDERABLE S Final Result from Last 3 Months or Most Recently Relevant to Health Maintenance Insurance MEDICARE PART A AND B [facility] Care Teams Sales Representative Graphic Art Relationship Specialty Start Date End Date Hoda Garcia MD PCP - General Internal Medicine 10/29/20
--- OUTSIDE RECORDS SUMMARY | 2024-11-20 13:07 | XMS_ITS | Encounter Summary ---
Author Organization [facility] Address [address] [place] [address] Care Team Providers Care Sales Merchandise Associate Name Role Phone Unavailable Primary Care Provider Unavailabl e Encounter Details Date Type Department Care Team (Late st Contact Info) Description 01/05/2024 Lab Requisition [facility] - DermPath Lab [address], [facility] [place] [address] Veda Alvarez MD [address] [facility] [address] [place] [address] Social History Tobacco Use Types Packs/Day Years Used Date Smoking Tobacco: Never Assessed Sex and Gender Information Value Date Recorded Sex Assigned at Not on file Gender Identity Not on file Sexual Orientation Not on file documented as of this encounter Plan of Treatment Not on file documented as of this encounter Procedures Procedure Name Priority Date/Time Associated Diagnosis Comments DERMATOPATHOLOGY Routine 01/05/2024 11:4 2 AM CDT documented in this encounter Results * DERMATOPATHOLOGY (01/05/2024 11:42 AM CDT) Case Report Dermatopathology Report Case: [id number] Authorizing Provider: Veda Alvarez MD Collected: 01/05/2024 11:42 AM Ordering Location: [facility]ician [facility] - Received: 01/06/2024 01:27 PM DermPath Lab Pathologist: Kiah Boucher MD Specimen: Skin, right superior brow 4 1:41 PM CDT DERMATOPATHOLOGY LABORATORY Final Diagnosis Specimen A. SKIN, right superior brow: BASAL CELL CARCINOMA, NODULAR TYPE (C44.319) 4 1:41 PM CDT DERMATOPATHOLOGY LABORATORY Clinical History [place] papule 1:41 PM CDT DERMATOPATHOLOGY LABORATORY Gross [...] cytoplasmic ratio and peripheral palisading. 1:41 PM T DERMATOPATHOLOGY LABORATORY Disclaimer An external and internal positive and negative controls are appropriate for the histochemical, immunohistochemical and immunofluorescence stain(s) in this case (if any), except where stated explicitly. The performance characteristics of the stain(s) cited in this report were developed and its performance characteristic determined by the Dermatopathology Laboratory at [facility], directed by Dr. Sofia Burden. These tests need not be, and therefore are not, approved by the [place] Food and Drug Administration. The tests are used for clinical purposes. Billing Codes Specimen Charges Stain Charges 73756 1 1:41 PM CDT DERMATOPATHOLOGY LABORATORY Embedded Images 1:41 PM CDT DERMATOPATHOLOGY LABORATORY Pathology/Cytolo gy TISSUE SPECIMEN FROM SKIN / Unknown 01/05/2024 11:42 AM CDT 01/06/2024 1:27 PM CDT Veda Alvarez MD LAB - PATHOLOGY/CYTO LOGY ORDERABLES DERMATOPATHOLOGY LABORATORY [facility] - Department of Dermatology [address], [address] [phone] documented in this encounter Visit Diagnoses Not on filedocumented in this encounter
--- OUTSIDE RECORDS SUMMARY | 2024-11-20 13:07 | XMS_ITS | Referral Summary ---
Author Organization [facility] Address [address] [place] [address] Care Team Providers Care Diversified Crops Farmer Name Role Phone Unavailable Primary Care Provider Unavailabl e Source Comments [facility],non-owned Affiliates and Associated Physician Practices is amultiple site organization consisting of ambulatory clinics and hospital sitesin [place], [place], [place] and [place]. This disclosure is being madepursuant to the Care Everywhere program and may not contain all information available regarding this patient. Last updated 18.[facility] [employer] Social History Tobacco Use Types Packs/Day Years Used Date Smoking Tobacco: Never Assessed Sex and Gender Information Value Date Recorded Sex Assigned at Not on file Gender Identity Not on file Sexual Orientation Not on file Plan of Treatment Not on file
--- OUTSIDE RECORDS SUMMARY | 2024-11-20 13:07 | XMS_ITS | Clinical Summary ---
Author Organization [facility] Address [address] [place] [address] Phone Care Team Providers Care Entry Level Installation Technician Name Role Phone Unavailable Unavailable Unavailable Reason for Visit and Chief Complaint * PHONE CALL Plan of Treatment - OTHER - Last Documented On 10/14/2010 3:38PM ; [facility] PHY ORDER/COMMENT I don't mind if she has pelvic U/S (dx=pelvic pain), but I wouldn't expect the enablex to work that quickly either so keep taking it - Last Documented On 10/14/2010 3:38PM ; [facility] Assessments Includes: Assessments from this encounter No Assessments Recorded Medical Equipment - Implanted Devices Includes: Current Devices No Medical Equipment Recorded Medications Includes: Medications discussed during this encounter and other current Medications Current Medications (continue as prescribed) traMADol HCl 50 MG OR TABS 12/11/2010 Provider: Diagnosis: Last Documented On 12/11/2010 8:47AM By YON XIONG ; [facility] Adderall 10 MG OR TABS 12/11/2010 Provider: Diagnosis: PRN Last Documented On 12/11/2010 8:48AM By YON XIONG ; [facility] Medications Administered Includes: Administered Medications from this encounter No Administered Medications Recorded Results Includes: Results discussed during this encounter No Results Recorded For Specified Dates History of Present Illness Includes: History of Present Illness from this encounter No History of Present Illness Recorded Social History No Social History Recorded - Smoking Status Unknown Medical History Includes: Medical History addressed during this encounter No Medical History Recorded Family History Includes: Family History addressed during this encounter No Family History Recorded Review of Systems Includes: Review of Systems from this encounter No Review of Systems Recorded Mental Status Includes: Mental Status from this encounter No Mental Status Recorded Functional Status Includes: Functional Status from this encounter No Functional Status Recorded Physical Exam Includes: Physical Exam from this encounter No Physical Exam Recorded Allergies Includes: Active Allergies No Known Allergies Encounters Encounter Provider Location Date Check-In Time Check-Out Time Diagnosis * PHONE CALL THIERRY LAGUERRE MD [facility] TRACTOR OPERATOR 1 3:16PM 11:59PM Clinical Notes Includes: Clinical Notes from this encounter No Clinical Notes Recorded
--- OUTSIDE RECORDS SUMMARY | 2024-11-20 13:07 | XMS_ITS ---
Care Plan - [facility] Created on: November 20, 2024 JERROD THAO : 1955 Sex: Female Author Organization [facility] Address [address] [place] [address] Phone Care Team Providers Care Department [employer] Name Role Phone Unavailable Unavailable Unavailable
--- OUTSIDE RECORDS SUMMARY | 2024-11-20 13:08 | XMS_ITS | Clinical Summary ---
Author Organization [facility] Address [address] [address] Care Team Providers Care Underground Distribution Engineer Name Role Phone Jennifer Mcdermott MD Unavailable Hoda Garcia MD Primary Care Provider Allergies Active Allergy Reactions Criticality Noted Date Comments Hpxwhnx-Oqx-Kpw Reductase Inhibitors Muscle pain Medium 07/18/2024 Medications [...] provided. Assessment & Plan (11/03/2024 11:01 AM TELEGRAPH INSPECTOR): BMI Follow-up includes: nutrition counseling, exercise counseling, [...] provided. Assessment & Plan (11/01/2023 12:56 PM TELEGRAPH INSPECTOR): BMI Follow-up includes: nutrition counseling, exercise counseling, [...] provided. Assessment & Plan (11/11/2022 10:47 AM TELEGRAPH INSPECTOR): BMI Follow-up includes: nutrition counseling, exercise counseling and education provided. Assessment & Plan (08/14/2022 10:30 AM TELEGRAPH INSPECTOR): BMI Follow-up includes: nutrition counseling, exercise counseling and education provided. Assessment & Plan (10/07/2021 2:23 PM TELEGRAPH INSPECTOR): BMI Follow-up includes: nutrition counseling, exercise counseling and education provided. Assessment & Plan (04/30/2021 7:04 AM CDT): BMI Follow-up includes: nutrition counseling, exercise counseling and education provided. Assessment & Plan (09/24/2020 11:02 AM TELEGRAPH INSPECTOR): BMI Follow-up includes: nutrition counseling, exercise counseling and education provided. Assessment & Plan (07/03/2020 8:23 AM CDT): BMI Follow-up includes: nutrition counseling, exercise counseling and education provided. Assessment & Plan (01/04/2020 1:21 PM CDT): BMI Follow-up includes: nutrition counseling, exercise counseling and education provided. Assessment & Plan (08/11/2019 7:09 AM TELEGRAPH INSPECTOR): BMI Follow-up includes: nutrition counseling, exercise counseling and education provided. Assessment & Plan (05/10/2019 11:00 AM CDT): BMI Follow-up includes: nutrition counseling, exercise counseling and education provided. Assessment & Plan (06/17/2018 8:15 AM CDT): BMI Follow-up includes: nutrition counseling, exercise counseling and education provided. Assessment & Plan (08/24/2017 3:27 PM TELEGRAPH INSPECTOR): BMI Follow-up includes: nutrition counseling, exercise counseling [...] microalbumin today. Continue to avoid NSAIDs and qtrv-nnp-xgjpvca supplements/cold medications. If worsening consider Nephrology consultation Nocturnal muscle cramp 02/08/2023 Assessment & Plan (02/08/2023 9:37 AM CDT): Will check magnesium level today. Encouraged adequate hydration throughout the day. Microscopic hematuria 11/11/2022 Assessment & Plan (02/08/2023 9:38 AM CDT): History of pyelonephritis August 2022. Recommend repeating UA today. Will check renal ultrasound considering increasing creatinine. Assessment & Plan (11/11/2022 11:18 AM TELEGRAPH INSPECTOR): Was likely 2/[address] Will plan for annual UA and return to urology prn Urinary frequency 08/17/2022 Assessment & Plan (11/01/2023 12:53 PM TELEGRAPH INSPECTOR): UA to rule out UTI Possible OAB Assessment & Plan (02/08/2023 9:38 AM CDT): Urinalysis ordered today. Recommend fluid restriction 2 hours prior to bed. Assessment & Plan (08/17/2022 7:05 PM TELEGRAPH INSPECTOR): UA to rule out UTI Chronic bilateral thoracic back pain 05/26/2022 Assessment & Plan (05/26/2022 9:34 AM CDT): Refer to physical therapy and for x-rays. May use onjm-sci-nxpbzmg NSAIDs p.r.n.. Other chest pain 04/24/2022 Assessment [...] 10/07/2021 Assessment & Plan (10/07/2021 3:01 PM TELEGRAPH INSPECTOR): Sed rate, CRP and rheumatoid factor. Medicare annual wellness visit, subsequent 10/07 Assessment & Plan (10/07/2021 3:01 PM TELEGRAPH INSPECTOR): A medicare annual wellness visit was completed today. Th patient completed a depression screen, functional assessment screen, health risk assessment screen. All elements of this exam were completed as outlined by CMS. Fatigue 09/24/2020 Assessment & Plan (11/01/2023 12:53 PM TELEGRAPH INSPECTOR): Will rule out hypothyroidism, electrolyte derangements, liver/kidney dysfunction, anemia. Recent B12 level normal Assessment & Plan (05/26/2022 9:34 AM CDT): Improved with improvement in right shoulder pain after injection. Assessment & Plan (04/24/2022 5:32 PM CDT): Labs as ordered. Will check stress test today as well. Would consider sleep study if normal. Assessment & Plan (09/24/2020 11:05 AM TELEGRAPH INSPECTOR): Check B12 and Vit D level. Anxiety 09/24/2020 Assessment & Plan (05/11/2023 5:26 PM CDT): Table Continue xanax prn Assessment & Plan (10/07/2021 3:01 PM TELEGRAPH INSPECTOR): Stable. Continue Xanax 1 or 2 p.o. [...] sleep. Assessment & Plan (09/24/2020 11:05 AM TELEGRAPH INSPECTOR): Alprazolam as prescribed Start wellbutrin 150 mg [...] 07/03/2020 Assessment & Plan (11/11/2022 11:19 AM TELEGRAPH INSPECTOR): Continue tramadol 100mg qAM Discussed concerns about increasing frequency due to risk for dependence and tolerance Did not start the Rx'ed celebrex due to concerns about side effects Recommend starting aleve qhs to help with nighttime pain Continue HEP Assessment & Plan (08/17/2022 7:04 PM TELEGRAPH INSPECTOR): Given persistent worsening symptoms with radiculopathy and muscle cramps potentially related to spinal stenosis as well as lack of improvement with conservative management including physical therapy and steroid injections, will obtain MRI of both thoracic and lumbar spine to determine next best steps Assessment & Plan (10/07/2021 3:00 PM TELEGRAPH INSPECTOR): Increase in intensity and duration. Discussed referral [...] 01/04/2020 Assessment & Plan (09/24/2020 11:04 AM TELEGRAPH INSPECTOR): Would like to start wellbutrin 150 mg daily to see if this helps. Assessment & Plan (01/04/2020 2:04 PM CDT): Continue xanax 1-2 tabs nightly New daily persistent headache 08/24/2017 Assessment & Plan (11/01/2023 1:52 PM TELEGRAPH INSPECTOR): Broad differential including tension headache, migraine headache, intracranial neoplasm, aneurysm, dehydration Normal neuro exam If she has UTI, will wait to see if symptoms improve with tx If no UTI or headaches persist despite treatment of UTI, will obtain brain MRI for new onset headaches in individual > 45 years old Assessment & Plan (09/24/2020 11:02 AM TELEGRAPH INSPECTOR): Stopped the cymbalta. Assessment & Plan (06/17/2018 8:39 AM CDT): Albino. Manages his tramadol p.r.n.. Assessment & Plan (08/24/2017 4:23 PM TELEGRAPH INSPECTOR): Refer to Dr. Juan Gonzalez Neurology, patient [...] daily Assessment & Plan (11/11/2022 11:20 AM TELEGRAPH INSPECTOR): Well controlled Continue adderall 20 daily Assessment & Plan (10/07/2021 3:00 PM TELEGRAPH INSPECTOR): Albino. Continue Adderall 20 mg daily. Assessment & Plan (04/30/2021 7:18 AM CDT): Stable. Continue Adderall 20 mg daily. Assessment & Plan (09/24/2020 11:02 AM TELEGRAPH INSPECTOR): Continues to take adderall 20 mg daily [...] policy. Assessment & Plan (08/11/2019 7:25 AM TELEGRAPH INSPECTOR): Albino. Adderall 20 mg [address] Mcdermott. Assessment & Plan (06/17/2018 8:39 AM CDT): Stable. Manages with Adderall p.r.n.. Osteoarthritis 02/10/2014 Overview (12/31/2016): OA Resolved Problems Problem Noted Date Diagnosed Date Resolved Date Pressure sensation in ear, bilateral 11/11/2022 05/11/2023 Assessment & Plan (11/11/2022 11:22 AM TELEGRAPH INSPECTOR): Suspect eustachian tube dysfunction Recommend flonase BMI 24.0-24.9, adult 05/26/2022 023 Assessment & Plan (05/26/2022 9:06 AM CDT): BMI Follow-up includes: nutrition counseling, exercise counseling and education provided. Impetigo 04/30/2021 05/11/2023 Assessment & Plan (04/30/2021 7:20 AM CDT): Bactroban ointment. Annual physical exam 09/24/2020 022 Assessment & Plan (09/24/2020 11:01 AM TELEGRAPH INSPECTOR): Medication and allergies reviewed and updated. Past [...] Assessment & Plan (05/10/2019 11:27 AM CDT): I, Ailyn Hopkins NP have personally reviewed pertinent Hospital/ER data [...] no improvement or symptoms progress contact office. Encounters Date Type Department Care Team Description 11/03/2024 11:00 AM TELEGRAPH INSPECTOR Office Visit [facility] [address] [facility] [address] [place] [address] Danae Zuluaga NP Pain in both lower extremities (Primary Dx) 10/19/2024 11:30 AM TELEGRAPH INSPECTOR Infusion [facility] Injection Therapy [address] [facility] [address] [place] [phone] Statin intolerance (Primary Dx); Elevated coronary artery calcium score; Mixed hyperlipidemia 10/06/2024 Telephone [facility] Infusion Therapy [address] [facility] [address] [place] [phone] Rose Joseph RN 10/03/2024 Telephone [facility] Cardiology [address] [place] [address] 8th [place] [address] [place] [address] Dana Beckham NP Repatha PA (Cara Monson) 09/12/2024 9:35 AM TELEGRAPH INSPECTOR Lab [facility] [address] [place] [address] Leg cramps 09/11/2024 Orders Only [facility] [address] [facility] [address] [place] [address] Hoda Garcia MD Leg cramps (Primary Dx) 09/06/2024 11:24 AM TELEGRAPH INSPECTOR - 09/06/2024 11:59 PM TELEGRAPH INSPECTOR Hospital Encounter [facility] [address] [place] [address] Dysuria Discharge Disposition: Discharge to home or self care 09/06/2024 Telephone [facility] [address] [facility] [address] [place] [address] Hoda Garcia MD Test Results 08/31/2024 1:00 PM TELEGRAPH INSPECTOR - 08/31/2024 11:59 PM TELEGRAPH INSPECTOR Hospital Encounter [facility] [address] [place] [address] Left ankle swelling; Swelling of calf Discharge Disposition: Discharge to home or self care 08/31/2024 Telephone [facility]iology [address] [facility] 8th [place] [address] [place] [address] Tamraa Smith MD cardiac clearance from Last 3 Months Immunizations Immunization Administration Dates Next Due Influenza, [...] PPV23 05/12/2023 Tdap 06/26/2014 ZOSTER LIVE 03/09/2017 Surgical History Surgery Date Site/Laterality Comments OTHER SURGICAL HISTORY Arthrocentesis of the right PARTIAL KNEE ARTHROPLASTY 06/27/2019 - 07/27/2019 Right Partial knee replacement JOINT REPLACEMENT 07/15 Medical History Medical History Date Comments Hx Other Medical lump in breast Low back pain Anxiety Arthritis 2011 Family History Medical History Relation Name Comments Cancer Father Ge Burnham Heart attack Mother Day Burnham Hip fracture Mother's Sister Other Other 1 No family histo ry of Cancer, colon; Other Other 2 No family histo ry of Colon polyps; Other Other 3 No family histo ry of Crohn's disease; Other Other 4 No family histo ry of Ulcerative colitis; Cancer Other 5 Family history of Cancer; Coronary artery disease Other 6 Fami ly history of Coronary artery disease; Osteoarthritis Other 7 Family histor y of Osteoarthritis; Osteoporosis Neg Hx Relation Name Status Comments Father Ge Burnham Mother Day Burnham Mother's Sister Alive Other 1 Other 2 Other 3 Other 4 Other 5 Other 6 Other 7 Social History Tobacco Use Types Packs/Day Years [...] on file Legal Sex Female 11:31 PM TELEGRAPH INSPECTOR Gender Identity Not on file Sexual Orientation Not on file Obstetrics History Last Filed Vital Signs Vital Sign Reading Time Taken Comments Blood Pressure 126/84 11/03/2024 11:01 AM TELEGRAPH INSPECTOR Pulse 86 11/03/2024 11:01 AM TELEGRAPH INSPECTOR Temperature 36.8 C (98.2 F) 08/15/2024 11:03 AM TELEGRAPH INSPECTOR Respiratory Rate 16 08/15/2024 11:03 AM TELEGRAPH INSPECTOR Oxygen Saturation 98% 11/03/2024 11:01 AM TELEGRAPH INSPECTOR Inhaled Oxygen Concentration - - Weight 70.4 kg (155 lb 1.6 oz) 11/03/2024 11:01 AM TELEGRAPH INSPECTOR Height 165.1 cm (5' 5 ) 11/03/2024 11:01 AM TELEGRAPH INSPECTOR Body Mass Index 25.81 11/03/2024 11:01 AM TELEGRAPH INSPECTOR Plan of Treatment Health Maintenance Due Date Last Done Comments Hepatitis B Screening 1973 Zoster Vaccine (2 of 3) 05/04/2017 03/09/2017 Covid-19 Vaccine (2023- 5 season) 2024 02/05/2022, 02/05/2022, 08/30/2021, Additional history exists DTaP/Tdap/Td Vaccine (2 - Td or Tdap) 06/26/2024 06/26/2014 Breast Cancer Screening-Mammogram 02/01/2025 02/02/2024, 02/02/2024, 12/16/2022, Additional history exists Well Visit 65+ 05/18/2025 05/18/2024, 04/27, 10/07/2021, Additional history exists Depression Screening 11/03/2025 11/03/2024, 06/13/2024, 05/18/2024, Additional history exists Fall Risk Assessment 11/03/2025 11/03/2024, 06/13/2024, 05/18/2024, Additional history exists Osteoporosis Screening-Bone Density Scan 02/10/2026 02/11/2024, 02/11/2024, 01/08/2023, Additional history exists Colon Cancer Screening-Colonoscopy 12/25/2026 12/25/2016 Colon Cancer Screening-CT Colonography Discontinued 12/25/2016 Colon Cancer Screening-Sigmoidoscopy Discontinued 12/25/2016 Hepatitis C Screening Completed 07/03/2020 Pneumococcal vaccine 65+ Completed 05/12/2023, 09/27 Colon Cancer Screening-DNA Stool Discontinued 05/26/20 24, 12/25/2016 Colon Cancer Screening-FIT Discontinued 05/26/2024, Influenza Vaccine Completed 06/27/2024, , 07/10/2022, Additional history exists Goals Goal Patient Goal Type Associated Problems [...] the likelihood of falling Lifestyle No Scarlet Levi, RN Note: Below are four things you [...] stairs Contact your local community or senior cody for information on exercise, fall prevention programs, or options for improving home safety. Procedures Procedure Name Priority Date/Time Associated Diagnosis Comments EGFR Routine 09/12/2024 9:37 AM TELEGRAPH INSPECTOR Leg cramps MAGNESIUM Routine 09/12/2024 9:37 AM TELEGRAPH INSPECTOR Leg cramps COMPREHENSIVE METABOLIC PANEL Routine 09/12/2024 9:37 AM TELEGRAPH INSPECTOR Leg cramps URINALYSIS, MICROSCOPIC ONLY Routine 09/06/2024 11:28 AM TELEGRAPH INSPECTOR Dysuria URINE CULTURE Routine 09/06/2024 11:28 AM TELEGRAPH INSPECTOR URINALYSIS AND REFLEX TO MICROSCOPIC AND CULTURE Routine 09/06/2024 11:28 AM TELEGRAPH INSPECTOR Dysuria US VEIN DUPLEX LOWER EXTREMITY LEFT LIMITED Schedule Routine, Read Routine (OP Routine) 08/31/2024 1:57 PM TELEGRAPH INSPECTOR Left ankle swelling Swelling of calf STOOL [...] Results * (ABNORMAL) eGFR (09/12/2024 9:37 AM TELEGRAPH INSPECTOR) eGFR 52(L) >=60 mL/min/1. 73 m2 Comment: [...] was last reviewed 2021. Testing performed by: [facility], [address] [place] [address]., [id number] Blood 09/12/2024 9:37 AM TELEGRAPH INSPECTOR 09/12/2024 1:02 PM TELEGRAPH INSPECTOR us Hoda Garcia MD LAB BLOOD ORDERABLES F inal Result Performing Organization Address City/State/[facility] Co de Phone Number [facility] [place] [facility] [place] [address] * Magnesium (09/12/2024 9:37 AM TELEGRAPH INSPECTOR) Magnesium 2.0 1.4 - 2.5 mg/dL Comment:Testing performed by : [facility], [address] [place] [address]., [address] Blood 09/12/2024 9:37 AM TELEGRAPH INSPECTOR 09/12/2024 12:57 PM TELEGRAPH INSPECTOR us Hoda Garcia MD LAB BLOOD ORDERABLES F inal Result [facility] ([place]) 1 [facility] [place] [address] * (ABNORMAL) Comprehensive metabolic panel (09/12/2024 9:37 AM TELEGRAPH INSPECTOR) Sodium 139 135 - 145 mmol/L Comment:Testing performed by : [facility], [address] [place] [address]., [address] Potassium, pl 4.5 3.3 - 4.9 mmol/L [facility] ([place]) Comment:Testing performed by : [facility], [address] [place] [address]., [address] Chloride 103 97 - 110 mmol/L [facility] ([place]) Comment:Testing performed by : [facility], [address] [place] [address]., [address] CO2 26 22 - 32 mmol/L [facility] ([place]) Comment:Testing performed by : [address], [address] Anion gap 10 2 - 15 mmol/L [facility] ([place]) Comment:Testing performed by : [facility], [address] [place] [address]., [address] BUN 24 6 - 25 mg/dL [facility] ([place]) Comment:Testing performed by : [facility], [address] [place] [address]., [address] Creatinine 1.15(H) 0.60 - 1.10 mg/dL [facility] ([place]) Comment:Testing performed by : [address], [address] Glucose 89 70 - 199 mg/dL [facility] Comment: Interpretive Data Fasting glucose [...] was last revised 2022. Testing performed by: [facility], [address] [place] [address], [address] Calcium 10.2 8.5 - 10.3 mg/dL [facility] ([place]) Comment:Testing performed by : [facility], [address] [place] [address], [address] Bilirubin, total 0.3 0.1 - 1.2 mg/dL [facility] ([place]) Comment:Testing performed by : [address], [address] Protein, pl 7.2 6.5 - 8.5 g/dL [facility] ([place]) Comment:Testing performed by : [facility], [address] [place] [address], [address] Albumin 4.1 3.5 - 5.0 g/dL [facility] ([place]) Comment:Testing performed by : [address], [address] Alk phos 70 40 - 130 Units/L [facility] ([place]) Comment:Testing performed by : [facility], [address] [place] [address], [address] ALT 15 7 - 45 Units/L [facility] ([place]) Comment:Testing performed by : [address], [address] AST 25 10 - 45 Units/L [facility] ([place]) Comment:Testing performed by : [address], [address] Blood 09/12/2024 9:37 AM TELEGRAPH INSPECTOR 09/12/2024 12:57 PM TELEGRAPH INSPECTOR us Hoda Garcia MD LAB BLOOD ORDERABLES F inal Result [facility] ([place]) 1 [facility] Department of Laboratories [place], [place] [id number] * (ABNORMAL) Urinalysis reflex to microscopic and culture Urine (09/06/2024 11:28 AM TELEGRAPH INSPECTOR) Color, ur Red(A) Yellow Comment:Testing performed by : [facility], [address], [place]., [address] Clarity, ur Turbid(A) Clear [facility] ([place]) Comment:Testing performed by : [address] [address] Specific gravity, ur 1.032(H) 1.003 - 1.030 [facility] ([place]) Comment:Testing performed by : [address], [address] pH, urine 5.5 [facility] ([place]) Comment: Interpretive Data U rine pH is affected by diet, medications, systemic acid-base disturbances, and renal tubular function. pH may affect urinary stone formation. For example, urine pH below 6.0 may help reduce the tendency for calcium phosphate stones and pH greater than 6.0 may reduce the tendency for uric acid stone formation. Source: [facility] Current Interpretive Data was last revised on 2017 Testing performed by: [address], [address] Protein, ur ql 1+(A) Negative [facility] ([place]) Comment:Testing performed by : [address], [address] Glucose, ur ql Negative Negative [facility] ([place]) Comment:Testing performed by : [address] [address] Ketones, ur Negative Negative [facility] ([place]) Comment:Testing performed by : [address], [address] Bilirubin, ur Negative Negative [facility] ([place]) Comment:Testing performed by : [address] [address] Blood, ur 3+(A) Negative [facility] ([place]) Comment:Testing performed by : [address], [address] Urobilinogen, ur <2.0 <2.0 mg/dL [facility] ([place]) Comment:Testing performed by : [address], [address] Nitrite, ur Negative Negative [facility] ([place]) Comment:Testing performed by : [address], [address] Leukocyte esterase, ur 3+(A) Negative [facility] ([place]) Comment:Testing performed by : [facility], [address] [place] [address]., [address] UA reflex comment Reflex to microscopic UA will be performed. [facility] ([place]) Comment:Testing performed by : [facility], [address] [place] [address]., [address] Urine 09/06/2024 11:2 8 AM TELEGRAPH INSPECTOR 09/06/2024 7:50 PM TELEGRAPH INSPECTOR Hoda Garcia MD LAB MICROBIOLOGY - GEN ERAL ORDERABLES Final Result Performing Organization Address City/[facility]/ZIP Co de Phone Number [facility] ([place]) 1 [facility] [place] [address] * (ABNORMAL) Urinalysis, microscopic only (09/06/2024 11:28 AM TELEGRAPH INSPECTOR) WBC, ur 11-20(A) 0 - 5 /HPF Comment:Testing performed by : [facility], [address] [place] [address], [address] RBC, ur >50(A) 0 - 2 /HPF [facility] ([place]) Comment:Testing performed by : [facility], [address] [place] [address]., [address] Culture Reflex Comment Reflex to urine culture will be performed. [facility] ([place]) Comment:Testing performed by : [facility], [address] [place] [address]., [address] Urine 09/06/2024 11:2 8 AM TELEGRAPH INSPECTOR 09/06/2024 7:50 PM TELEGRAPH INSPECTOR Hoda Garcia MD LAB URINE ORDERABLES F inal Result Performing Organization Address City/[facility]/ZIP Co de Phone Number [facility] ([place]) 1 [facility] [place] [address] * (ABNORMAL) Urine culture Urine (09/06/2024 11:28 AM TELEGRAPH INSPECTOR) Report Final Report: Greater than or equal to 100,000 colonies/mL of Escherichia coli Plus growth of clinically insignificant bacterial jared. (.) Comment:Testing performed by : [facility], [address] [facility], [place]., [address] Organism ESCHERICHIA COLI ENA DANNI HE ([place]) Organism PLUS GROWTH OF CLINICALLY INSIGNIFICANT JARED. [facility] ([place]) Urine 09/06/2024 11:2 8 AM TELEGRAPH INSPECTOR 09/07/2024 12:09 AM TELEGRAPH INSPECTOR Narrative [facility] ([place]) - 09/08/2024 4:18 PM TELEGRAPH INSPECTOR Urine culture reflexed based upon urinalysis results. Testing performed by [facility] ([phone]) Organism Antibiotic Method Susceptibility Escherichia coli Ampicillin [...] ORDERABLES Final Result [facility] ([place]) 1 [facility] [place] [address] * US VEIN DUPLEX LOWER EXTREMITY LEFT LIMITED, UNILATERAL (08/31/2024 1:57 PM TELEGRAPH INSPECTOR) Anatomical Region Laterality Modality Vascular Left Ultrasound 08/31/2024 Narrative 09/02/2024 1:06 PM TELEGRAPH INSPECTOR [employer] Job ID: [id number] [employer] Document ID: [id number] Dictated date/time: [id number] LEFT LOWER EXTREMITY VENOUS DUPLEX. REASON FOR EXAM Swelling. FINDINGS ON THE LEFT The left common femoral, femoral, popliteal, posterior tibial, peroneal, greater saphenous demonstrate spontaneous phasic flow that augment and are compressible. INTERPRETATION No evidence of deep or superficial venous thrombosis of the left lower extremity. Job ID/Internal Job ID: [id number] Hoda Garcia MD [facility] PROCEDURES Nida l Result * Stool DNA - Cologuard (05/26/2024 8:52 AM CDT) Stool DNA - Cologuard Negative Negative [employer] (CLIA #:[id number]) Comment: NEGATIVE TEST RESULT. A negative Cologuard [...] Gallegos et al, N Engl J Med 2014;370(14):5679-1400) The normal value (reference range) for this assay is negative. COLOGUARD RE-SCREENING RECOMMENDATION: Periodic colorectal cancer screening is an important part of preventive healthcare for asymptomatic individuals at average risk for colorectal cancer. Following a negative Cologuard result, the [employer] Cancer Society and U.S. Multi-Society Task Force screening guidelines recommend a Cologuard re-screening interval of 3 years. References: [employer] Guideline for Colorectal Cancer Screening: https://www.cancer.org/cancer/pyrks-sqoeft-mntiqx/upbuxqqgy-pniaiahno-qmhwfwz/ac s-rec ommendations.html.; Aubrey DK, Joe CR, Crystal SerratoK, Colorectal Cancer Screening: Recommendations for Physicians and Patients from the U.S. Multi-Society Task Force on Colorectal Cancer Screening , Am J Gastroenterology 2017; 112:5179-7418. TEST DESCRIPTION: Composite algorithmic analysis of stool [...] (Lakisha Rosado al, N Engl J Med 2014;370(14):8715-3880.) Cologuard may produce a false negative or false positive result (no colorectal cancer or precancerous polyp present at colonoscopy follow up). A negative Cologuard test result does not guarantee the absence of CRC or advanced adenoma (pre-cancer). The current Cologuard screening interval is every 3 years. ([employer] Cancer Society and U.S. Multi-Society Task Force). Cologuard performance data in a 10,000 patient pivotal study using colonoscopy as the reference method can be accessed at the following location: [email or web address]/results. Additional description of the Cologuard test process, warnings and precautions can be found at [email or web address]. Stool 05/26/2024 8:52 AM CDT 05/27/2024 11:27 AM CDT us Danae Zuluaga NP LAB BODY FLUIDS AND STOOLS CARYL ALEGRIA Final Result [facility] (CLIA #:[id number]) [address] [place], [place] [address] * Dexa TBS Axial Skeleton Bone Density 1 or more sites (02/11/2024 11:50 AM CDT) Anatomical Region Laterality Modality Wrist, Body N/A Radiographic Kiera ging Narrative 02/14/2024 4:10 PM CDT Patient Name: Natasha Harrington Date of : 1955 Date of scan: 02/11/2024 Bone mineral density was performed on a HoloSanghvi Discovery Densitometer. Based on machine cross-calibration and [...] by the International Society of Clinical Densitometry. [id number] Mi Singh MD [facility] DXA PROCEDURES Final R esult * Screening Mammogram Bilateral W Hayder (12/08/2021) Anatomical Region Laterality Modality Breast Bilateral Mammography Impressions 12/08/2021 Negative screening mammagram BI RADS Category 1: Negative Follow up 1 year Historical Provider Dalia MAMMO PROCEDURES Nida l Result * Hepatitis [...] a test for HCV RNA (test code 84459) is suggested. For additional information please refer to http://education.[employer]/faq/TLY03p9 (This link is being provided for informational/ educational purposes only.) Blood specimen (specimen) 07/03/2020 10:34 AM CDT 07/04/2020 4:15 AM CDT Hoda Garcia MD LAB MICROBIOLOGY - GEN ERAL ORDERABLES Final Result [facility] [address] [address] [facility] [place] [id number] * COLONOSCOPY (12/25/2016) Colonoscopy Normal Historical Provider HEALTH MAINTENANCE Final Result from Last 3 Months or Most Recently Relevant to Health Maintenance Insurance [facility] MEDICARE [place] [employer] [place] MEDICARE [facility] MEDICARE [employer] [place] [address] MEDICARE [employer] [place] Care Teams Underground Distribution Engineer Relationship Specialty [place] [address] [facility] [address] [place] [address] PCP - General Internal Medicine 02/12/20 [place] [id number] [address] Rheumatology 08/02/17
--- OUTSIDE RECORDS SUMMARY | 2024-11-20 13:08 | XMS_ITS | Clinical Summary ---
Author Organization [facility] Address [address] [place] [address] Phone Care Team Providers Care Cell Biologist Name Role Phone Unavailable Unavailable Unavailable Reason for Visit and Chief Complaint PELVIC W/TVT Plan of Treatment No Plan of Treatment Recorded Assessments Includes: Assessments from this encounter No Assessments Recorded Medical Equipment - Implanted Devices Includes: Current Devices No Medical Equipment Recorded Medications Includes: Medications discussed during this encounter and other current Medications Current Medications (continue as prescribed) traMADol HCl 50 MG OR TABS 12/11/2010 Provider: Diagnosis: Last Documented On 12/11/2010 8:47AM By YON XIONG ; [facility] Adderall 10 MG OR TABS 12/11/2010 Provider: Diagnosis: PRN Last Documented On 12/11/2010 8:48AM By YON XIONG ; [facility] Medications Administered Includes: Administered Medications from this [...] Location Date Check-In Time Check-Out Time Diagnosis PELVIC W/TVT THIERRY LAGUERRE MD [facility] EBS CONSULTANT 1 2:53PM 3:27PM Clinical Notes Includes: Clinical Notes from this encounter No Clinical Notes Recorded
--- OUTSIDE RECORDS SUMMARY | 2024-11-20 13:08 | XMS_ITS ---
Author Organization [facility] Address [address] [place] [address] Phone Care Team Providers Care Director Of Women'S Services Name Role Phone Unavailable Unavailable Unavailable Plan of Treatment Instructions to patient Instructions for patient : B reast Self Exam discussed Last Documented On 1 8:49AM ; [facility] Instructions for patient : B reast Self Exam discussed Last Documented On 0 2:25PM ; [facility] Education and Decision Aids were provided during visit for: STD screening offered and de clined Last Documented On 1 8:49AM ; [facility] Bone Mineral Density Screeni ng guidelines reviewed Last Documented On 1 8:49AM ; [facility] Patient Education: Daily norm cium and vitamin D Last Documented On 1 8:49AM ; [facility] Patient Education: weight be aring exercise Last Documented On 1 8:49AM ; [facility] Colonoscopy screening guidel ki discussed Last Documented On 1 8:49AM ; [facility] STD screening offered and de clined Last Documented On 0 2:25PM ; [facility] Bone Mineral Density Screeni ng guidelines reviewed Last Documented On 0 2:25PM ; [facility] Patient Education: Daily norm cium and vitamin D Last Documented On 0 2:25PM ; [facility] Patient Education: weight be aring exercise Last Documented On 0 2:25PM ; [facility] Colonoscopy screening guidel ki discussed had colonoscopy 2-3 years ago (WNL) Last Documented On 0 2:35PM ; [facility] Assessments Includes: Assessments for all patient encounters Findings Encounter Date No malignant neoplasm of the ovary MANAGER COPY EXAM with THIERRY LAGUERRE MD 12/11/2010 Last Documented On 1 9:00AM ; [facility] Routine pelvic exam MANAGER COPY EXAM with THIERRY LAGUERRE MD 12/11/2010 Last Documented On 1 9:00AM ; [facility] Screening Malig. Neoplasm Rectum MANAGER COPY EXAM with Froylan LAGUERRE MD 12/11/2010 Last Documented On 1 9:00AM ; [facility] Cystocele PROBLEM VISIT with THIERRY LAGUERRE MD 10/09/2010 Last Documented On 1 2:39PM ; [facility] Hyperactivity of the bladder PROBLEM VISIT with THIERRY LAGUERRE MD 10/09/2010 Last Documented On 1 2:39PM ; [facility] Routine pelvic exam MANAGER COPY EXAM with THIERRY LAGUERRE MD 12/03/2009 Last Documented On 0 2:35PM ; [facility] Screening Malig. Neoplasm Rectum MANAGER COPY EXAM with Froylan LAGUERRE MD 12/03/2009 Last Documented On 0 2:35PM ; [facility] Instructions Includes: Instructions for all patient encounters Instructions to patient Instructions for patient : B reast Self Exam discussed Last Documented On 1 8:49AM ; [facility] Instructions for patient : B reast Self Exam discussed Last Documented On 0 2:25PM ; [facility] Education and Decision Aids were provided during visit for: STD screening offered and de clined Last Documented On 1 8:49AM ; [facility] Bone Mineral Density Screeni ng guidelines reviewed Last Documented On 1 8:49AM ; [facility] Patient Education: Daily norm cium and vitamin D Last Documented On 1 8:49AM ; [facility] Patient Education: weight be aring exercise Last Documented On 1 8:49AM ; [facility] Colonoscopy screening guidel ki discussed Last Documented On 1 8:49AM ; [facility] STD screening offered and de clined Last Documented On 0 2:25PM ; [facility] Bone Mineral Density Screeni ng guidelines reviewed Last Documented On 0 2:25PM ; [facility] Patient Education: Daily norm cium and vitamin D Last Documented On 0 2:25PM ; [facility] Patient Education: weight be aring exercise Last Documented On 0 2:25PM ; [facility] Colonoscopy screening guidel ki discussed had colonoscopy 2-3 years ago (WNL) Last Documented On 0 2:35PM ; [facility] Medical Equipment - Implanted Devices Includes: Current and historical Devices No Medical Equipment Recorded Medications Includes: Current and historical Medications Current Medications (continue as prescribed) traMADol HCl 50 MG OR TABS 12/11/2010 Provider: Diagnosis: Last Documented On 12/11/2010 8:47AM By YON XIONG ; [facility] Adderall 10 MG OR TABS 12/11/2010 Provider: Diagnosis: PRN Last Documented On 12/11/2010 8:48AM By YON XIONG ; [facility] Past Medications on file Enablex 7.5 MG OR TB24 10/09/2010 - 12/11/2010 Provide r: THIERRY LAGUERRE MD Diagnosis: Last Documented On 12/11/2010 8:47AM By YON XIONG ; [facility] Medications Administered Includes: Administered Medications in patient's chart No Administered Medications Recorded Results Includes: Results from 11/20/2023 through 11/20/2024 No Results Recorded For Specified Dates History of Present Illness History of Present Illness not supported for this document type No History of Present Illness Recorded Social History Description Last Updated Sexually active 12/11/2010 Last Documented On 1 9:00AM ; [facility] Social history unchanged 12/11/2010 Last Documented On 1 9:00AM ; [facility] In monogamous relationship 12/03/2009 Last Documented On 0 2:35PM ; [facility] Non-smoker 12/03/2009 Last Documented On 0 2:35PM ; [facility] Daily coffee consumption was three cups per day 10/10/2009 Last Documented On 0 3:36PM ; [facility] Marital history 10/10/2009 Last Documented On 0 3:36PM ; [facility] Sexually active with 1 partners in the l ast year 10/10/2009 Last Documented On 0 3:36PM ; [facility] Exercising regularly 10/10/2009 Last Documented On 0 3:36PM ; [facility] Smoking Status Unknown Procedures and Surgical History Surgical History Last Updated Surgical / procedural history L breast l umpectomy 20 years ago, Benign 12/11/2010 Last Documented On 1 9:00AM ; [facility] Medical History Includes: Medical History in patient's chart Description Last Updated No recent change in medical history 11/25 Last Documented On 1 9:00AM ; [facility] A colonoscopy was performed 2006 WNL Last Documented On 1 9:00AM ; [facility] Patient recently had a dexa scan 009 osteopenia 12/11/2010 Last Documented On 1 9:00AM ; [facility] Last mammogram date: 12/17/2009 1 Last Documented On 1 2:39PM ; [facility] Last pap smear date 12/03/2009 10/09/2010 Last Documented On 1 2:39PM ; [facility] 1 12/03/2009 Last Documented On 0 2:35PM ; [facility] History of menopause 12/03/2009 Last Documented On 0 2:35PM ; [facility] LMP: 200612/03/2009 Last Documented On 0 2:35PM ; [facility] Para 1 12/03/2009 Last Documented On 0 2:35PM ; [facility] Result: normal 12/03/2009 Last Documented On 0 2:35PM ; [facility] Result: normal 12/03/2009 Last Documented On 0 2:35PM ; [facility] 1 living children 10/10/2009 Last Documented On 0 3:36PM ; [facility] benign breast lump 10/10/2009 Last Documented On 0 3:36PM ; [facility] A breast self-exam was performed 010 Last Documented On 0 3:36PM ; [facility] A mammogram was performed 08/0410/10/19 10 Last Documented On 0 3:36PM ; [facility] Partner with vasectomy 10/10/2009 Last Documented On 0 3:36PM ; [facility] Result: abnormal 10/10/2009 Last Documented On 0 3:36PM ; [facility] Family History Includes: Family History in patient's chart Description Last Updated Family history changed Seamus olivares recently passed from a massive heart attack 12/11/2010 Last Documented On 1 9:00AM ; [facility] Family history of malignant neoplasm of the ovary MAT GMA 12/03/2009 Last Documented On 0 2:35PM ; [facility] No family history of diabetes mellitus 0 12/03/2009 Last Documented On 0 2:35PM ; [facility] No family history of malignant female br east neoplasm 12/03/2009 Last Documented On 0 2:35PM ; [facility] No family history of malignant neoplasm of the large intestine 12/03/2009 Last Documented On 0 2:35PM ; [facility] Review of Systems Review of Systems not supported for this document type No Review of Systems Recorded Mental Status Description No anxiety Functional Status No Functional Status Recorded Physical Exam Physical Exam not supported for this document type No Physical Exam Recorded Allergies Includes: Active, inactive, and resolved Allergies No Known Allergies Clinical Notes Includes: Signed Clinical Notes starting from 10/16/2022 No Clinical Notes Recorded
--- OUTSIDE RECORDS SUMMARY | 2024-11-20 13:08 | XMS_ITS | Clinical Summary ---
Author Organization [facility] Address [address] [place] [address] Phone Care Team Providers Care Automat Car Attendant Name Role Phone Unavailable Unavailable Unavailable Reason for Visit and Chief Complaint PELVIC W/TVT Plan of Treatment - Fem Genital Symptoms NOS - Last Documented On 10/14/2010 3:49PM ; [facility] U/S /VICE PRESIDENT SALES AND MARKETING ULTRASOUND: PTVT US - Last Documented On 10/14/2010 3:49PM ; [facility] Pending Tests Order Diagnosis Results Due Ordering P rovider U/S @ ABDIFATAH - OB or JV U/S PTVT US Fem Genital Symptoms NOS 10/14/10 THIERRY LAGUERRE MD Last Documented On 1 8:21AM ; [facility] Assessments Includes: Assessments from this encounter No Assessments Recorded Medical Equipment - Implanted Devices Includes: Current Devices No Medical Equipment Recorded Medications Includes: Medications discussed during this encounter and other current Medications Current Medications (continue as prescribed) traMADol HCl 50 MG OR TABS 12/11/2010 Provider: Diagnosis: Last Documented On 12/11/2010 8:47AM By YON XIONG ; [facility] Adderall 10 MG OR TABS 12/11/2010 Provider: Diagnosis: PRN Last Documented On 12/11/2010 8:48AM By YON XIONG ; [facility] Medications Administered Includes: Administered Medications from this [...] Time Diagnosis PELVIC W/TVT THIERRY LAGUERRE MD [facility] VICE PRESIDENT SALES AND MARKETING 1 3:48PM 11:59PM Clinical Notes Includes: Clinical Notes from this encounter No Clinical Notes Recorded
[2024-11-20 14:17] LABS: MRSA (PCR) DETECTED (NOT DETECTE)
[2024-11-20 14:23] LABS: Hemoglobin A1C 5.4 % (<5.7)
== END 2024-11-20 11:11 | disposition home or self-care (01) ==
LOC: ANHSURGERY 11:14
PROVIDERS: PCP Internal Medicine; Visit Provider Orthopaedic Surgery
DX: M17.12 Unilateral primary osteoarthritis, left knee (principal); Z01.818 Encounter for other preprocedural examination
CPT/HCPCS: 80307; 82040; 82565; 82947; 83036; 85025; 87641

== ENCOUNTER 2024-12-12 00:25 | Day surgery (SDC) | payer MEDICARE, OTHER, SELFPAY ==
[2024-11-20 11:32] VITALS: BP 149/78; PULSE 78; RESP 16; TEMP 36.7; O2SAT 100; BMI 26.4
--- NOTE | 2024-11-20 11:54 | PC.NURSE ---
Report to the Outpatient Waiting Room, entrance under the green pavilion located off [facility], at time _0830am on date _12/12/24 . Planned Procedure Time: _1030am .? Time changes happen often and if your time is changed the preop area will call you the afternoon before. - You and your visitor will be asked to self-screen and do not enter if you have any COVID symptoms. Please call surgeon if you need to reschedule. - A mask is optional within the hospital at this time. Patients may have clear liquids (water, carbonated beverages, clear teas, apple juice) until 3 hours prior to surgery with a maximum of 20 ounces. - No food from midnight until time of surgery and no smoking, or chewing tobacco (or any form of nicotine). No chewing gum, candy or mints. Take only the following medications with a SIP of water on the morning of surgery: ___Tramadol if needed DO NOT STOP ANY OF YOUR OTHER PRESCRIPTION MEDICATIONS PRIOR TO SURGERY EXCEPT THE FOLLOWING Hold all vitamins and supplements for 3 days per anesthesiologist. Date to take last dose is 12/08/24 Medications to discontinue per physician Aspirin for 7 days prior to surgery per Dr Wood Date to take last dose 12/03/24 Please no make-up, nail turkish, hairspray, perfume, deodorant, or body powder the day of surgery.? No jewelry (including any body piercings) or valuables the day of surgery, leave them at home.? Please take a shower or bath the night before, or the morning of, surgery with an antibacterial soap.? Wear comfortable, loose fitting clothing.? - Jewelry must be removed prior to entering the operating room.? Rings and piercings that are not removed may be cut off. - The hospital will not accept responsibility for valuables.? - Please leave all valuables, including medications, at home the day of surgery. If you are going home after surgery, a licensed seasonal driver must drive you home.? - NO public transportation without another adult if you receive anesthesia. - We recommend that an adult stay with you for 24 hours following discharge. - We also recommend that you do not drive, make important decision, drink alcoholic beverages, or take any drugs that were not prescribed by your health care provider for at least 24 hours after your discharge time. Follow any additional instructions given to you from your surgeon. Telephone instructions given to ___Patient ___and asked if any additional questions and then verbalized understanding. Patient advised to call surgeon office or pre surgery nurse liaison [phone] if any additional questions.
[2024-12-12] VITALS (18 sets, daily range): BP systolic 99–134; BP diastolic 47–78; PULSE 73–91; RESP 12–20; TEMP 36–36.8; O2SAT 93–100
--- NOTE | ~2024-12-12 | XR_ITS ---
[id number] Ordering provider: Franklin Wood MD History: . POST-OP, LEFT TKA . Comparison: None. FINDINGS: BONES: No acute fracture or dislocation. JOINT SPACES: Total knee arthroplasty. SOFT TISSUES: Postoperative changes in the subcutaneous tissues. IMPRESSION: No acute osseous abnormality left knee. Total knee arthroplasty. Reviewed, dictated and finalized at location A.
--- OUTSIDE RECORDS SUMMARY | 2024-12-12 00:28 | XMS_ITS | Clinical Summary ---
Author Organization [facility] Address [address] [place] [address] Phone Care Team Providers Care Railroad Crane Operator Name Role Phone Unavailable Unavailable Unavailable Reason for Visit and Chief Complaint PELVIC W/TVT Plan of Treatment - Fem Genital Symptoms NOS - Last Documented On 10/14/2010 3:49PM ; [facility] U/S /EVENT MARKETING MANAGER ULTRASOUND: PTVT US - Last Documented On 10/14/2010 3:49PM ; [facility] Pending Tests Order Diagnosis Results Due Ordering P rovider U/S @ ABDIFATAH - OB or JV U/S PTVT US Fem Genital Symptoms NOS 10/14/10 THIERRY LAGUERRE MD Last Documented On 1 8:21AM ; [facility] Assessments Includes: Assessments from this encounter No Assessments Recorded Medical Equipment - Implanted Devices Includes: Current Devices No Medical Equipment Recorded Medications Includes: Medications discussed during this encounter and other current Medications Current Medications (continue as prescribed) traMADol HCl 50 MG OR TABS 12/11/2010 Provider: Diagnosis: Last Documented On 12/11/2010 8:47AM By YON XIONG ; [facility] Adderall 10 MG OR TABS 12/11/2010 Provider: Diagnosis: PRN Last Documented On 12/11/2010 8:48AM By YON XIONG ; [facility] Medications Administered Includes: Administered Medications from [...] Time Diagnosis PELVIC W/TVT THIERRY LAGUERRE MD [facility] EVENT MARKETING MANAGER 1 3:48PM 11:59PM Clinical Notes Includes: Clinical Notes from this encounter No Clinical Notes Recorded
--- OUTSIDE RECORDS SUMMARY | 2024-12-12 00:28 | XMS_ITS ---
Author Organization [facility] Address [address] [place] [address] Phone Care Team Providers Care Auto Slip Cover Installer Name Role Phone Unavailable Unavailable Unavailable Plan of Treatment Instructions to patient Instructions for patient : B reast Self Exam discussed Last Documented On 1 8:49AM ; [facility] Instructions for patient : B reast Self Exam discussed Last Documented On 0 2:25PM ; [facility] Education and Decision Aids were provided during visit for: STD screening offered and de clined Last Documented On 1 8:49AM ; [facility] Bone Mineral Density Screeni ng guidelines reviewed Last Documented On 1 8:49AM ; [facility] Patient Education: Daily norm cium and vitamin D Last Documented On 1 8:49AM ; [facility] Patient Education: weight be aring exercise Last Documented On 1 8:49AM ; [facility] Colonoscopy screening guidel ki discussed Last Documented On 1 8:49AM ; [facility] STD screening offered and de clined Last Documented On 0 2:25PM ; [facility] Bone Mineral Density Screeni ng guidelines reviewed Last Documented On 0 2:25PM ; [facility] Patient Education: Daily norm cium and vitamin D Last Documented On 0 2:25PM ; [facility] Patient Education: weight be aring exercise Last Documented On 0 2:25PM ; [facility] Colonoscopy screening guidel ki discussed had colonoscopy 2-3 years ago (WNL) Last Documented On 0 2:35PM ; [facility] Assessments Includes: Assessments for all patient encounters Findings Encounter Date No malignant neoplasm of the ovary PATIENT ACCESS COORDINATOR EXAM with THIERRY LAGUERRE MD 12/11/2010 Last Documented On 1 9:00AM ; [facility] Routine pelvic exam PATIENT ACCESS COORDINATOR EXAM with THIERRY LAGUERRE MD 12/11/2010 Last Documented On 1 9:00AM ; [facility] Screening Malig. Neoplasm Rectum PATIENT ACCESS COORDINATOR EXAM with Froylan LAGUERRE MD 12/11/2010 Last Documented On 1 9:00AM ; [facility] Cystocele PROBLEM VISIT with THIERRY LAGUERRE MD 10/09/2010 Last Documented On 1 2:39PM ; [facility] Hyperactivity of the bladder PROBLEM VISIT with THIERRY LAGUERRE MD 10/09/2010 Last Documented On 1 2:39PM ; [facility] Routine pelvic exam PATIENT ACCESS COORDINATOR EXAM with THIERRY LAGUERRE MD 12/03/2009 Last Documented On 0 2:35PM ; [facility] Screening Malig. Neoplasm Rectum PATIENT ACCESS COORDINATOR EXAM with Froylan LAGUERRE MD 12/03/2009 Last Documented On 0 2:35PM ; [facility] Instructions Includes: Instructions for all patient encounters Instructions to patient Instructions for patient : B reast Self Exam discussed Last Documented On 1 8:49AM ; [facility] Instructions for patient : B reast Self Exam discussed Last Documented On 0 2:25PM ; [facility] Education and Decision Aids were provided during visit for: STD screening offered and de clined Last Documented On 1 8:49AM ; [facility] Bone Mineral Density Screeni ng guidelines reviewed Last Documented On 1 8:49AM ; [facility] Patient Education: Daily norm cium and vitamin D Last Documented On 1 8:49AM ; [facility] Patient Education: weight be aring exercise Last Documented On 1 8:49AM ; [facility] Colonoscopy screening guidel ki discussed Last Documented On 1 8:49AM ; [facility] STD screening offered and de clined Last Documented On 0 2:25PM ; [facility] Bone Mineral Density Screeni ng guidelines reviewed Last Documented On 0 2:25PM ; [facility] Patient Education: Daily norm cium and vitamin D Last Documented On 0 2:25PM ; [facility] Patient Education: weight be aring exercise Last Documented On 0 2:25PM ; [facility] Colonoscopy screening guidel ki discussed had colonoscopy 2-3 years ago (WNL) Last Documented On 0 2:35PM ; [facility] Medical Equipment - Implanted Devices Includes: Current and historical Devices No Medical Equipment Recorded Medications Includes: Current and historical Medications Current Medications (continue as prescribed) traMADol HCl 50 MG OR TABS 12/11/2010 Provider: Diagnosis: Last Documented On 12/11/2010 8:47AM By YON XIONG ; [facility] Adderall 10 MG OR TABS 12/11/2010 Provider: Diagnosis: PRN Last Documented On 12/11/2010 8:48AM By YON XIONG ; [facility] Past Medications on file Enablex 7.5 MG OR TB24 10/09/2010 - 12/11/2010 Provide r: THIERRY LAGUERRE MD Diagnosis: Last Documented On 12/11/2010 8:47AM By YON XIONG ; [facility] Medications Administered Includes: Administered Medications in patient's chart No Administered Medications Recorded Results Includes: Results from 12/13/2023 through 12/12/2024 No Results Recorded For Specified Dates History of Present Illness History of Present Illness not supported for this document type No History of Present Illness Recorded Social History Description Last Updated Sexually active 12/11/2010 Last Documented On 1 9:00AM ; [facility] Social history unchanged 12/11/2010 Last Documented On 1 9:00AM ; [facility] In monogamous relationship 12/03/2009 Last Documented On 0 2:35PM ; [facility] Non-smoker 12/03/2009 Last Documented On 0 2:35PM ; [facility] Daily coffee consumption was three cups per day 10/10/2009 Last Documented On 0 3:36PM ; [facility] Marital history 10/10/2009 Last Documented On 0 3:36PM ; [facility] Sexually active with 1 partners in the l ast year 10/10/2009 Last Documented On 0 3:36PM ; [facility] Exercising regularly 10/10/2009 Last Documented On 0 3:36PM ; [facility] Smoking Status Unknown Procedures and Surgical History Surgical History Last Updated Surgical / procedural history L breast l umpectomy 20 years ago, Benign 12/11/2010 Last Documented On 1 9:00AM ; [facility] Medical History Includes: Medical History in patient's chart Description Last Updated No recent change in medical history 11/25 Last Documented On 1 9:00AM ; [facility] A colonoscopy was performed 2006 WNL Last Documented On 1 9:00AM ; [facility] Patient recently had a dexa scan 009 osteopenia 12/11/2010 Last Documented On 1 9:00AM ; [facility] Last mammogram date: 12/17/2009 1 Last Documented On 1 2:39PM ; [facility] Last pap smear date 12/03/2009 10/09/2010 Last Documented On 1 2:39PM ; [facility] 1 12/03/2009 Last Documented On 0 2:35PM ; [facility] History of menopause 12/03/2009 Last Documented On 0 2:35PM ; [facility] LMP: 200612/03/2009 Last Documented On 0 2:35PM ; [facility] Para 1 12/03/2009 Last Documented On 0 2:35PM ; [facility] Result: normal 12/03/2009 Last Documented On 0 2:35PM ; [facility] Result: normal 12/03/2009 Last Documented On 0 2:35PM ; [facility] 1 living children 10/10/2009 Last Documented On 0 3:36PM ; [facility] benign breast lump 10/10/2009 Last Documented On 0 3:36PM ; [facility] A breast self-exam was performed 010 Last Documented On 0 3:36PM ; [facility] A mammogram was performed 08/0410/10/19 10 Last Documented On 0 3:36PM ; [facility] Partner with vasectomy 10/10/2009 Last Documented On 0 3:36PM ; [facility] Result: abnormal 10/10/2009 Last Documented On 0 3:36PM ; [facility] Family History Includes: Family History in patient's chart Description Last Updated Family history changed Seamus olivares recently passed from a massive heart attack 12/11/2010 Last Documented On 1 9:00AM ; [facility] Family history of malignant neoplasm of the ovary MAT GMA 12/03/2009 Last Documented On 0 2:35PM ; [facility] No family history of diabetes mellitus 0 12/03/2009 Last Documented On 0 2:35PM ; [facility] No family history of malignant female br east neoplasm 12/03/2009 Last Documented On 0 2:35PM ; [facility] No family history of malignant neoplasm of the large intestine 12/03/2009 Last Documented On 0 2:35PM ; [facility] Review of Systems Review of Systems not [...]
--- OUTSIDE RECORDS SUMMARY | 2024-12-12 00:28 | XMS_ITS | Encounter Summary ---
Author Organization [facility] Address [address] [facility] [place] [address] Care Team Providers Care Plant Chief Name Role Phone Unavailable Primary Care Provider Unavailabl e Encounter Details Date Type Department Care Team (Late st Contact Info) Description 01/05/2024 Lab Requisition [facility] - DermPath Lab [address], [facility] [place] [address] Veda Alvarez MD [address] [facility] [address] [place] [address] Social History Tobacco Use Types Packs/Day Years [...] AM CDT) Case Report Dermatopathology Report Case: [id number] Authorizing Provider: Veda Alvarez MD Collected: 01/05/2024 11:42 AM Ordering Location: [facility] - Received: 01/06/2024 01:27 PM DermPath Lab Pathologist: Kiah Boucher MD Specimen: Skin, right superior brow 4 1:41 PM CDT DERMATOPATHOLOGY LABORATORY Final Diagnosis Specimen A. SKIN, right superior brow: BASAL CELL CARCINOMA, NODULAR TYPE (C44.319) 4 1:41 PM CDT DERMATOPATHOLOGY LABORATORY Clinical History [place] papule 1:41 PM CDT DERMATOPATHOLOGY LABORATORY Gross [...] characteristic determined by the Dermatopathology Laboratory at [facility], directed by Dr. Sofia Burden. These tests need not be, and therefore are not, approved by the [place] Food and Drug Administration. The tests are used for clinical purposes. Billing Codes Specimen Charges Stain Charges 00141 1 1:41 PM CDT DERMATOPATHOLOGY LABORATORY Embedded Images 1:41 PM CDT DERMATOPATHOLOGY LABORATORY Pathology/Cytolo gy TISSUE SPECIMEN FROM SKIN / Unknown 01/05/2024 11:42 AM CDT 01/06/2024 1:27 PM CDT Veda Alvarez MD LAB - PATHOLOGY/CYTO LOGY ORDERABLES DERMATOPATHOLOGY LABORATORY [facility] - Department of Dermatology [address], [address] [phone] documented in this encounter Visit Diagnoses Not on filedocumented in this encounter
--- OUTSIDE RECORDS SUMMARY | 2024-12-12 00:28 | XMS_ITS | Clinical Summary ---
Author Organization [facility] Address [address] [place] [address] Phone Care Team Providers Care Diamond Picker Name Role Phone Unavailable Unavailable Unavailable Reason for Visit and Chief Complaint gynecologic annual exam - The Chief Complaint is: wwe and pap Plan of Treatment - ROUTINE PELVIC EXAM - Last Documented On 12/11/2010 9:00AM ; [facility] Lab: SUREPATH RFX HPV - Last Documented On 12/11/2010 9:00AM ; [facility] ? SCREEN MAMMOGRAM NECRadiology/*MAMMOGRAPHY: Mammography - Last Documented On 12/11/2010 9:00AM ; [facility] ? Cervical Pap SmearIn office procedures/*Clia Waived Labs: Pap Smear Taken - Last Documented On 12/11/2010 9:00AM ; [facility] ? SCREEN MAL NEOP-RECTUMIn office procedures/*[facility]ived Labs: *FIT Test (Fecal Occult Test) - Last Documented On 12/11/2010 9:00AM ; [facility] Pending Tests Order Diagnosis Results Due Ordering Kaycee asherder In office procedures - *[facility] Labs Pap Smear Taken SCREEN MAL NEOP-CERVIX 12/25/10 THIERRY LAGUERRE MD Last Documented On 1 8:58AM ; [facility] In office procedures - *[facility] Labs *FIT Test (Fecal Occult Test) SCREEN MAL NEOP-RECTUM 12/25/10 THIERRY LAGUERRE MD Last Documented On 1 8:58AM ; [facility] Radiology @ other - *MAMMOGRAPHY Mammography SCREEN MAMMOGRAM NEC 12/25/10 THIERRY DIAZ MD Last Documented On 1 9:07AM ; [facility] Lab SUREPATH PAP RFX HR HPV 01/10/11 Froylan LAGUERRE MD Last Documented On 1 8:44AM ; [facility] Instructions to patient Instructions for patient : B reast Self Exam discussed Last Documented On 1 8:49AM ; [facility] Education and Decision Aids were provided during visit for: STD screening offered and de clined Last Documented On 1 8:49AM ; [facility] Bone Mineral Density Screeni ng guidelines reviewed Last Documented On 1 8:49AM ; [facility] Patient Education: Daily norm cium and vitamin D Last Documented On 1 8:49AM ; [facility] Patient Education: weight be aring exercise Last Documented On 1 8:49AM ; [facility] Colonoscopy screening guidel ki discussed Last Documented On 1 8:49AM ; [facility] Assessments Includes: Assessments from this encounter Findings - Routine pelvic exam - Last Documented On 12/11/2010 9:00AM ; [facility] - Screening Malig. Neoplasm Rectum - Last Documented On 12/11/2010 9:00AM ; [facility] - No malignant neoplasm of the ovary - Last Documented On 12/11/2010 9:00AM ; [facility] Instructions Includes: Instructions from this encounter Instructions to patient Instructions for patient : B reast Self Exam discussed Last Documented On 1 8:49AM ; [facility] Education and Decision Aids were provided during visit for: STD screening offered and de clined Last Documented On 1 8:49AM ; [facility] Bone Mineral Density Screeni ng guidelines reviewed Last Documented On 1 8:49AM ; [facility] Patient Education: Daily norm cium and vitamin D Last Documented On 1 8:49AM ; [facility] Patient Education: weight be aring exercise Last Documented On 1 8:49AM ; [facility] Colonoscopy screening guidel ki discussed Last Documented On 1 8:49AM ; [facility] Medical Equipment - Implanted Devices Includes: Current Devices No Medical Equipment Recorded Medications Includes: Medications discussed during this encounter and other current Medications Discontinued / Stopped on this date THIERRY LAGUERRE MD on 10/09/2010 Enablex 7.5 MG OR TB24 Provider: THIERRY LAGUERRE MD Diagnosis: Last Documented On 12/11/2010 8:47AM By YON XIONG ; [facility] Current Medications (continue as prescribed) traMADol HCl 50 MG OR TABS 12/11/2010 Provider: Diagnosis: Last Documented On 12/11/2010 8:47AM By YON XIONG ; [facility] Adderall 10 MG OR TABS 12/11/2010 Provider: Diagnosis: PRN Last Documented On 12/11/2010 8:48AM By YON XIONG ; [facility] Medications Administered Includes: Administered Medications from this encounter No Administered Medications Recorded Vital Signs Includes: Vital Signs from this encounter Vital Name 12/11/2010 08:30A Blood Pressure Sitting R 118/66 BP Cuff Size Regular Pulse Rate-Sitting (bpm) 78 Height (in) 64.5 Weight (lb) 162 Body Mass Index (kg/m2) 27.4 Body Surface Area (m2) 1.8 Last Documented: On 12/11/2010 8:46AM ; [facility] Results Includes: Results discussed during [...] 12/11/2010 Last Documented On 1 9:00AM ; [facility] Social history unchanged 12/11/2010 Last Documented On 1 9:00AM ; [facility] In monogamous relationship 12/03/2009 Last Documented On 1 8:38AM ; [facility] Non-smoker 12/03/2009 Last Documented On 1 8:38AM ; [facility] Daily coffee consumption was three cups per day 10/10/2009 Last Documented On 1 8:38AM ; [facility] Marital history 10/10/2009 Last Documented On 1 8:38AM ; [facility] Sexually active with 1 partners in the l ast year 10/10/2009 Last Documented On 1 8:38AM ; [facility] Exercising regularly 10/10/2009 Last Documented On 1 8:38AM ; [facility] Smoking Status Unknown Procedures and Surgical History Includes: Procedures from this encounter Procedures Code Diagnosis Performing Provider Service L ocation Service Date cervical Pap smear 97273 Last Documented On 1 8:49AM ; [facility] a fecal occult blood test was negative 27777 Last Documented On 1 8:49AM ; [facility] Surgical History Last Updated Surgical / procedural history L breast l umpectomy 20 years ago, Benign 12/11/2010 Last Documented On 1 9:00AM ; [facility] Medical History Includes: Medical History addressed during this encounter Description Last Updated No recent change in medical history 11/25 Last Documented On 1 9:00AM ; [facility] A colonoscopy was performed 2006 WNL Last Documented On 1 9:00AM ; [facility] Patient recently had a dexa scan 009 osteopenia 12/11/2010 Last Documented On 1 9:00AM ; [facility] Last mammogram date: 12/17/2009 1 Last Documented On 1 8:38AM ; [facility] Last pap smear date 12/03/2009 10/09/2010 Last Documented On 1 8:38AM ; [facility] 1 12/03/2009 Last Documented On 1 8:38AM ; [facility] History of menopause 12/03/2009 Last Documented On 1 8:38AM ; [facility] LMP: 200612/03/2009 Last Documented On 1 8:38AM ; [facility] Para 1 12/03/2009 Last Documented On 1 8:38AM ; [facility] Result: normal 12/03/2009 Last Documented On 1 8:38AM ; [facility] Result: normal 12/03/2009 Last Documented On 1 8:38AM ; [facility] 1 living children 10/10/2009 Last Documented On 1 8:38AM ; [facility] benign breast lump 10/10/2009 Last Documented On 1 8:38AM ; [facility] A breast self-exam was performed 010 Last Documented On 1 8:38AM ; [facility] A mammogram was performed 08/0410/10/19 10 Last Documented On 1 8:38AM ; [facility] Partner with vasectomy 10/10/2009 Last Documented On 1 8:38AM ; [facility] Family History Includes: Family History addressed during this encounter Description Last Updated Family history changed Seamus olivares recently passed from a massive heart attack 12/11/2010 Last Documented On 1 9:00AM ; [facility] No family history of diabetes mellitus 0 12/03/2009 Last Documented On 1 8:38AM ; [facility] No family history of malignant female br east neoplasm 12/03/2009 Last Documented On 1 8:38AM ; [facility] No family history of malignant neoplasm of the large intestine 12/03/2009 Last Documented On 1 8:38AM ; [facility] Review of Systems Includes: Review of Systems [...] Location Date Check-In Time Check-Out Time Diagnosis RESEARCH ASSISTANT MEMBER EXAM THIERRY LAGUERRE MD [facility] MONEY POSITION OFFICER 1 8:36AM 9:08AM Ovarian Neoplasm Malignant,Mer mata Pelvic Exam,Lesa Das. Neoplasm Rectum Clinical Notes Includes: Clinical Notes from this encounter No Clinical Notes Recorded
--- OUTSIDE RECORDS SUMMARY | 2024-12-12 00:28 | XMS_ITS | Clinical Summary ---
Author Organization [facility] Address [address] [place] [address] Phone Care Team Providers Care Worm Sorter Name Role Phone Unavailable Unavailable Unavailable Reason [...] On 12/11/2010 8:47AM By YON XIONG ; [facility] Adderall 10 MG OR TABS 12/11/2010 Provider: Diagnosis: PRN Last Documented On 12/11/2010 8:48AM By YON XIONG ; [facility] Medications Administered Includes: Administered Medications from [...] Time Diagnosis PELVIC W/TVT THIERRY LAGUERRE MD [facility] CODING ASSISTANT 1 2:53PM 3:27PM Clinical Notes Includes: Clinical Notes from this encounter No Clinical Notes Recorded
--- OUTSIDE RECORDS SUMMARY | 2024-12-12 00:28 | XMS_ITS ---
Care Plan - [facility] Created on: December 12, 2024 JERROD THAO : 1955 Sex: Female Author Organization [facility] Address [address] [place] [address] Phone Care Team Providers Care Mains And Service Supervisor Name Role Phone Unavailable Unavailable Unavailable
--- OUTSIDE RECORDS SUMMARY | 2024-12-12 00:28 | XMS_ITS | Patient Health Summary ---
Author Organization [facility] Address [address] [place] [address] Care Team Providers Care Cupola Patcher Name Role Phone Unavailable Primary Care Provider Unavailabl e Note from [facility],non-owned Affiliates and Associated Physician Practices is amultiple site organization consisting of ambulatory clinics and hospital sitesin [place], [place], [place] and [place]. This disclosure is being madepursuant to the Care Everywhere program and may not contain all information available regarding this patient. Last updated 18.[facility] Social History Tobacco Use Types Packs/Day Years [...] is included. Case Report Dermatopathology Report Case: [id number] Authorizing Provider: Veda Alvarez MD Collected: 01/05/2024 11:42 AM Ordering Location: [facility] - Received: 01/06/2024 01:27 PM DermPath Lab Pathologist: Kiah Boucher MD Specimen: Skin, right superior brow 4 1:41 PM CDT DERMATOPATHOLOGY LABORATORY Final Diagnosis Specimen A. SKIN, right superior brow: BASAL CELL CARCINOMA, NODULAR TYPE (C44.319) 4 1:41 PM CDT DERMATOPATHOLOGY LABORATORY Clinical History [place] papule 1:41 PM CDT DERMATOPATHOLOGY LABORATORY Gross [...] characteristic determined by the Dermatopathology Laboratory at [facility], directed by Dr. Sofia Burden. These tests need not be, and therefore are not, approved by the [place] Food and Drug Administration. The tests are used for clinical purposes. Billing Codes Specimen Charges Stain Charges 07908 1 1:41 PM CDT DERMATOPATHOLOGY LABORATORY Embedded Images 1:41 PM CDT DERMATOPATHOLOGY LABORATORY Pathology/Cytolo gy TISSUE SPECIMEN FROM SKIN / Unknown 01/05/2024 11:42 AM CDT 01/06/2024 1:27 PM CDT Veda Alvarez MD LAB - PATHOLOGY/CYTO LOGY ORDERABLES DERMATOPATHOLOGY LABORATORY [facility] - Department of Dermatology [facility] [address] [place] [address], [address] [phone]
--- OUTSIDE RECORDS SUMMARY | 2024-12-12 00:28 | XMS_ITS | Clinical Summary ---
Author Organization [facility] Address [address] [place] [address] Care Team Providers Care Narrow Fabrics Weaver Name Role Phone Unavailable Primary Care Provider Unavailabl e Source Comments [facility],non-owned Affiliates and Associated Physician Practices is amultiple site organization consisting of ambulatory clinics and hospital sitesin [place] and [place]. This disclosure is being madepursuant to the Care Everywhere program and may not contain all information available regarding this patient. Last updated 18.[facility] Social History Tobacco Use Types Packs/Day Years [...] to complete this topic MENINGOCOCCAL (Group B) VACC INE SHARED DECISION-MAKING Aged Out No longer eligibl e based on patient's age to complete this topic MENINGOCOCCAL GROUPS A/C/Y/W VACCINE Aged Out No longer eligible b ased on patient's age to complete this topic
--- OUTSIDE RECORDS SUMMARY | 2024-12-12 00:28 | XMS_ITS | Encounter Summary ---
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
--- OUTSIDE RECORDS SUMMARY | 2024-12-12 00:28 | XMS_ITS | Referral Summary ---
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 Name Role Phone Jennifer Mcdermott MD Unavailable Hoda Garcia MD Primary Care Provider Encounters Date Type Department Care Team Description 11/03/2024 11:00 AM CABINETMAKER MAINTENANCE Office Visit [facility] [address] [place] [address] [address] [place] [address] Danae Zuluaga NP Pain in both lower extremities (Primary Dx) 10/19/2024 11:30 AM CABINETMAKER MAINTENANCE Infusion [facility] Injection Therapy [address] [place] [address] [address] [place] [phone] Statin intolerance (Primary Dx); Elevated coronary artery calcium score; Mixed hyperlipidemia 10/06/2024 Telephone [facility]fusion Therapy [address] [place] [address] [address] [place] [phone] Rose Joseph RN 10/03/2024 Telephone [facility] Cardiology [facility] Advanced Medicine 8th [place] [address] [place] [address] Dana Beckham NP [facility] PA (Cara Monson) from Last 3 Months Allergies Active Allergy Reactions Criticality Noted Date Comments Ffntegv-Cko-Lrx Reductase Inhibitors Muscle pain Medium 07/18/2024 Medications [...] mg total) under the skin once Active ALPRAZolam (XANAX) 0.25 mg tabletIndications :Anxiety TAKE 2 TABLETS (0.5 MG TOTAL) BY MOUTH NIGHTLY 60 tablet 11/20/19 25 Active dextroamphetamine -amphetamine (AdderalL) 20 mg tablet Take 1 tablet (20 mg total) by mouth daily 30 tablet 11/28/19 25 Active traMADoL (ULTRAM) 50 mg tablet Take 1 tablet (50 mg total) by mouth 2 (two) times a day 60 tablet 11/28/19 25 Active ALPRAZolam (XANAX) 0.25 mg tabletIndications :Anxiety Take 2 tablets (0.5 mg total) by mouth nightly 60 tablet 10/20/19 25 025 Discontinued dextroamphetamine -amphetamine (AdderalL) 20 mg tablet Take 1 tablet (20 mg total) by mouth daily 30 tablet 10/24/19 25 025 Discontinued(Re order) traMADoL (ULTRAM) 50 mg tablet Take 1 tablet (50 mg total) by mouth 2 (two) times a day 60 tablet 01/28 025 Discontinued(Re order) Hospital, Clinic, or Other Facility Administered Medication [...] provided. Assessment & Plan (11/03/2024 11:01 AM CABINETMAKER MAINTENANCE): BMI Follow-up includes: nutrition counseling, exercise counseling, [...] provided. Assessment & Plan (11/01/2023 12:56 PM CABINETMAKER MAINTENANCE): BMI Follow-up includes: nutrition counseling, exercise counseling, [...] provided. Assessment & Plan (11/11/2022 10:47 AM CABINETMAKER MAINTENANCE): BMI Follow-up includes: nutrition counseling, exercise counseling and education provided. Assessment & Plan (08/14/2022 10:30 AM CABINETMAKER MAINTENANCE): BMI Follow-up includes: nutrition counseling, exercise counseling and education provided. Assessment & Plan (10/07/2021 2:23 PM CABINETMAKER MAINTENANCE): BMI Follow-up includes: nutrition counseling, exercise counseling and education provided. Assessment & Plan (04/30/2021 7:04 AM CDT): BMI Follow-up includes: nutrition counseling, exercise counseling and education provided. Assessment & Plan (09/24/2020 11:02 AM CABINETMAKER MAINTENANCE): BMI Follow-up includes: nutrition counseling, exercise counseling and education provided. Assessment & Plan (07/03/2020 8:23 AM CDT): BMI Follow-up includes: nutrition counseling, exercise counseling and education provided. Assessment & Plan (01/04/2020 1:21 PM CDT): BMI Follow-up includes: nutrition counseling, exercise counseling and education provided. Assessment & Plan (08/11/2019 7:09 AM CABINETMAKER MAINTENANCE): BMI Follow-up includes: nutrition counseling, exercise counseling and education provided. Assessment & Plan (05/10/2019 11:00 AM CDT): BMI Follow-up includes: nutrition counseling, exercise counseling and education provided. Assessment & Plan (06/17/2018 8:15 AM CDT): BMI Follow-up includes: nutrition counseling, exercise counseling and education provided. Assessment & Plan (08/24/2017 3:27 PM CABINETMAKER MAINTENANCE): BMI Follow-up includes: nutrition counseling, exercise counseling [...] microalbumin today. Continue to avoid NSAIDs and mhml-ybx-jayoxqe supplements/cold medications. If worsening consider Nephrology consultation Nocturnal muscle cramp 02/08/2023 Assessment & Plan (02/08/2023 9:37 AM CDT): Will check magnesium level today. Encouraged adequate hydration throughout the day. Microscopic hematuria 11/11/2022 Assessment & Plan (02/08/2023 9:38 AM CDT): History of pyelonephritis August 2022. Recommend repeating UA today. Will check renal ultrasound considering increasing creatinine. Assessment & Plan (11/11/2022 11:18 AM CABINETMAKER MAINTENANCE): Was likely 2/[address] Will plan for annual UA and return to urology prn Urinary frequency 08/17/2022 Assessment & Plan (11/01/2023 12:53 PM CABINETMAKER MAINTENANCE): UA to rule out UTI Possible OAB Assessment & Plan (02/08/2023 9:38 AM CDT): Urinalysis ordered today. Recommend fluid restriction 2 hours prior to bed. Assessment & Plan (08/17/2022 7:05 PM CABINETMAKER MAINTENANCE): UA to rule out UTI Chronic bilateral thoracic back pain 05/26/2022 Assessment & Plan (05/26/2022 9:34 AM CDT): Refer to physical therapy and for x-rays. May use jhuu-jwa-zpooqsh NSAIDs p.r.n.. Other chest pain 04/24/2022 Assessment [...] 10/07/2021 Assessment & Plan (10/07/2021 3:01 PM CABINETMAKER MAINTENANCE): Sed rate, CRP and rheumatoid factor. Medicare annual wellness visit, subsequent 10/07 Assessment & Plan (10/07/2021 3:01 PM CABINETMAKER MAINTENANCE): A medicare annual wellness visit was completed today. Th patient completed a depression screen, functional assessment screen, health risk assessment screen. All elements of this exam were completed as outlined by CMS. Fatigue 09/24/2020 Assessment & Plan (11/01/2023 12:53 PM CABINETMAKER MAINTENANCE): Will rule out hypothyroidism, electrolyte derangements, liver/kidney dysfunction, anemia. Recent B12 level normal Assessment & Plan (05/26/2022 9:34 AM CDT): Improved with improvement in right shoulder pain after injection. Assessment & Plan (04/24/2022 5:32 PM CDT): Labs as ordered. Will check stress test today as well. Would consider sleep study if normal. Assessment & Plan (09/24/2020 11:05 AM CABINETMAKER MAINTENANCE): Check B12 and Vit D level. Anxiety 09/24/2020 Assessment & Plan (05/11/2023 5:26 PM CDT): Table Continue xanax prn Assessment & Plan (10/07/2021 3:01 PM CABINETMAKER MAINTENANCE): Stable. Continue Xanax 1 or 2 p.o. [...] sleep. Assessment & Plan (09/24/2020 11:05 AM CABINETMAKER MAINTENANCE): Alprazolam as prescribed Start wellbutrin 150 mg [...] 07/03/2020 Assessment & Plan (11/11/2022 11:19 AM CABINETMAKER MAINTENANCE): Continue tramadol 100mg qAM Discussed concerns about increasing frequency due to risk for dependence and tolerance Did not start the Rx'ed celebrex due to concerns about side effects Recommend starting aleve qhs to help with nighttime pain Continue HEP Assessment & Plan (08/17/2022 7:04 PM CABINETMAKER MAINTENANCE): Given persistent worsening symptoms with radiculopathy and muscle cramps potentially related to spinal stenosis as well as lack of improvement with conservative management including physical therapy and steroid injections, will obtain MRI of both thoracic and lumbar spine to determine next best steps Assessment & Plan (10/07/2021 3:00 PM CABINETMAKER MAINTENANCE): Increase in intensity and duration. Discussed referral [...] 01/04/2020 Assessment & Plan (09/24/2020 11:04 AM CABINETMAKER MAINTENANCE): Would like to start wellbutrin 150 mg daily to see if this helps. Assessment & Plan (01/04/2020 2:04 PM CDT): Continue xanax 1-2 tabs nightly New daily persistent headache 08/24/2017 Assessment & Plan (11/01/2023 1:52 PM CABINETMAKER MAINTENANCE): Broad differential including tension headache, migraine headache, intracranial neoplasm, aneurysm, dehydration Normal neuro exam If she has UTI, will wait to see if symptoms improve with tx If no UTI or headaches persist despite treatment of UTI, will obtain brain MRI for new onset headaches in individual > 45 years old Assessment & Plan (09/24/2020 11:02 AM CABINETMAKER MAINTENANCE): Stopped the cymbalta. Assessment & Plan (06/17/2018 8:39 AM CDT): Stable. Manages his tramadol p.r.n.. Assessment & Plan (08/24/2017 4:23 PM CABINETMAKER MAINTENANCE): Refer to Dr. Juan Gonzalez Neurology, patient [...] daily Assessment & Plan (11/11/2022 11:20 AM CABINETMAKER MAINTENANCE): Well controlled Continue adderall 20 daily Assessment & Plan (10/07/2021 3:00 PM CABINETMAKER MAINTENANCE): Stable. Continue Adderall 20 mg daily. Assessment & Plan (04/30/2021 7:18 AM CDT): Stable. Continue Adderall 20 mg daily. Assessment & Plan (09/24/2020 11:02 AM CABINETMAKER MAINTENANCE): Continues to take adderall 20 mg daily [...] policy. Assessment & Plan (08/11/2019 7:25 AM CABINETMAKER MAINTENANCE): Stable. Adderall 20 mg [address] Mcdermott. Assessment & Plan (06/17/2018 8:39 AM CDT): Stable. Manages with Adderall p.r.n.. Osteoarthritis 02/10/2014 Overview (12/31/2016): OA Resolved Problems Problem Noted Date Diagnosed Date Resolved Date Pressure sensation in ear, bilateral 11/11/2022 05/11/2023 Assessment & Plan (11/11/2022 11:22 AM CABINETMAKER MAINTENANCE): Suspect eustachian tube dysfunction Recommend flonase BMI 24.0-24.9, adult 05/26/2022 023 Assessment & Plan (05/26/2022 9:06 AM CDT): BMI Follow-up includes: nutrition counseling, exercise counseling and education provided. Impetigo 04/30/2021 05/11/2023 Assessment & Plan (04/30/2021 7:20 AM CDT): Bactroban ointment. Annual physical exam 09/24/2020 022 Assessment & Plan (09/24/2020 11:01 AM CABINETMAKER MAINTENANCE): Medication and allergies reviewed and updated. Past [...] Plan (05/10/2019 11:27 AM CDT): I, Ailyn Hopkins, SUMI have personally reviewed pertinent Hospital/ER data including [...] on file Legal Sex Female 11:31 PM CABINETMAKER MAINTENANCE Gender Identity Not on file Sexual Orientation Not on file Last Filed Vital Signs Vital Sign Reading Time Taken Comments Blood Pressure 126/84 11/03/2024 11:01 AM CABINETMAKER MAINTENANCE Pulse 86 11/03/2024 11:01 AM CABINETMAKER MAINTENANCE Temperature 36.8 C (98.2 F) 08/15/2024 11:03 AM CABINETMAKER MAINTENANCE Respiratory Rate 16 08/15/2024 11:03 AM CABINETMAKER MAINTENANCE Oxygen Saturation 98% 11/03/2024 11:01 AM CABINETMAKER MAINTENANCE Inhaled Oxygen Concentration - - Weight 70.4 kg (155 lb 1.6 oz) 11/03/2024 11:01 AM CABINETMAKER MAINTENANCE Height 165.1 cm (5' 5 ) 11/03/2024 11:01 AM CABINETMAKER MAINTENANCE Body Mass Index 25.81 11/03/2024 11:01 AM CABINETMAKER MAINTENANCE Plan of Treatment Not on file Goals Goal Patient Goal Type Associated Problems Recent Progress Patient-Stated? Author CCM Chronic Pain Care Plan Chronic Care Management Scarlet Bianchi, RN Note: Problem: Chronic Pain Goals: 1. Minimize further functional decline 2. Maximize quality of life 3. Control pain Strategies: - Activity/exercise program recommendation - Conservative stepwise pain medicine strategy with multi-disciplinary approach - Recommend healthy lifestyle strategies and compensatory methods as needed Reduce the likelihood of falling Lifestyle Scarlet Bianchi RN Note: Below are four things you [...] on stairs Contact your local community or [facility] for information on exercise, fall prevention programs, or options for improving home safety. Procedures Procedure Name Priority Date/Time Associated Diagnosis Comments STOOL DNA COLOGUARD Routine 05/26/2024 8:52 AM [...] Recently Relevant to Health Maintenance Results * Stool DNA - Cologuard (05/26/2024 8:52 AM CDT) Stool DNA - Cologuard Negative Negative [facility] (CLIA #:[id number]) Comment: NEGATIVE TEST RESULT. A negative Cologuard [...] (Lakisha Rosado al, N Engl J Med 2014;370(14):2655-6247) The normal value (reference range) for this assay is negative. COLOGUARD RE-SCREENING RECOMMENDATION: Periodic colorectal cancer screening is an important part of preventive healthcare for asymptomatic individuals at average risk for colorectal cancer. Following a negative Cologuard result, the [place] Cancer Society and U.S. Multi-Society Task Force screening guidelines recommend a Cologuard re-screening interval of 3 years. References: [place] Cancer Society Guideline for Colorectal Cancer Screening: https://www.cancer.org/cancer/fequi-xhydhm-kkgyvl/zajgfnkbz-nkyedqtjy-czzeizc/ac s-rec ommendations.html.; Aubrey DK, Joe BURNETT, Crystal SerratoK, Colorectal Cancer Screening: Recommendations for Physicians and Patients from the U.S. Multi-Society Task Force on Colorectal Cancer Screening , Am J Gastroenterology 2017; 112:4030-0850. TEST DESCRIPTION: Composite algorithmic analysis of stool [...] screened with both Cologuard and colonoscopy. (Lakisha Marshall, N Engl J Med 2014;370(14):3653-2523.) Cologuard may produce a false negative or false positive result (no colorectal cancer or precancerous polyp present at colonoscopy follow up). A negative Cologuard test result does not guarantee the absence of CRC or advanced adenoma (pre-cancer). The current Cologuard screening interval is every 3 years. ([place] Cancer Society and U.S. Multi-Society Task Force). Cologuard performance data in a 10,000 patient pivotal study using colonoscopy as the reference method can be accessed at the following location: www.[employer]/results. Additional description of the Cologuard test process, warnings and precautions can be found at www.cologuard.com. Stool 05/26/2024 8:52 AM CDT 05/27/2024 11:27 AM CDT Danae Zuluaga NP LAB BODY FLUIDS AND STOOLS O RDERABLES Final Result [employer] (CLIA #:[id number]) [address] [address] * Dexa TBS Axial Skeleton Bone Density 1 or more sites (02/11/2024 11:50 AM CDT) Anatomical Region Laterality Modality Wrist, Body N/A Radiographic Kiera ging Narrative 02/14/2024 4:10 PM CDT Patient Name: Natasha Harrington Date of : 1955 Date of scan: 02/11/2024 Bone mineral density was performed on a Holoc[employer] Discovery Densitometer. Based on machine cross-calibration and [...] by the International Society of Clinical Densitometry. [id number] Mi Singh MD IMG DXA PROCEDURES Final R esult * Screening Mammogram Bilateral W Hayder (12/08/2021) Anatomical Region Laterality Modality Breast Bilateral Mammography Impressions 12/08/2021 Negative screening mammagram BI RADS Category 1: Negative Follow up 1 year Historical Provider G MAMMO PROCEDURES Nida l Result * Hepatitis [...] a test for HCV RNA (test code 19508) is suggested. For additional information please refer to http://education.[employer]/faq/WRO74s4 (This link is being provided for informational/ educational purposes only.) Blood specimen (specimen) 07/03/2020 10:34 AM CDT 07/04/2020 4:15 AM CDT Hoda Garica MD LAB MICROBIOLOGY - GEN ERAL ORDERABLES Final Result [facility] [address] [place] [address] * COLONOSCOPY (12/25/2016) Colonoscopy Normal Historical Provider HEALTH MAINTENANCE Final Result from Last 3 Months or Most Recently Relevant to Health Maintenance Insurance [facility] MEDICARE [facility] MEDICARE [employer] [place] [address] MEDICARE [employer] Care Teams Vine Fruit Farming Supervisor Relationship Specialty [place] [id number] [facility] [address] [place] [address] PCP - General Internal Medicine 02/12/20 [place] [id number] [facility] [address] [place] [address] Rheumatology 08/02/17
--- OUTSIDE RECORDS SUMMARY | 2024-12-12 00:28 | XMS_ITS | Clinical Summary ---
Author Organization [facility] Address [address] [address] Care Team Providers Care Digital Circuit Designer Name Role Phone Jennifer Mcdermott MD Unavailable Hoda Garcia MD Primary Care Provider Allergies Active Allergy Reactions Criticality Noted Date Comments Lputapr-Uml-Iwd Reductase Inhibitors Muscle pain Medium 07/18/2024 Medications [...] times a day 60 tablet 10/24/19 25 025 Discontinued(Re order) Hospital, Clinic, or Other [...] provided. Assessment & Plan (11/03/2024 11:01 AM FREIGHT WEIGHER): BMI Follow-up includes: nutrition counseling, exercise counseling, [...] provided. Assessment & Plan (11/01/2023 12:56 PM FREIGHT WEIGHER): BMI Follow-up includes: nutrition counseling, exercise counseling, [...] provided. Assessment & Plan (11/11/2022 10:47 AM FREIGHT WEIGHER): BMI Follow-up includes: nutrition counseling, exercise counseling and education provided. Assessment & Plan (08/14/2022 10:30 AM FREIGHT WEIGHER): BMI Follow-up includes: nutrition counseling, exercise counseling and education provided. Assessment & Plan (10/07/2021 2:23 PM FREIGHT WEIGHER): BMI Follow-up includes: nutrition counseling, exercise counseling and education provided. Assessment & Plan (04/30/2021 7:04 AM CDT): BMI Follow-up includes: nutrition counseling, exercise counseling and education provided. Assessment & Plan (09/24/2020 11:02 AM FREIGHT WEIGHER): BMI Follow-up includes: nutrition counseling, exercise counseling and education provided. Assessment & Plan (07/03/2020 8:23 AM CDT): BMI Follow-up includes: nutrition counseling, exercise counseling and education provided. Assessment & Plan (01/04/2020 1:21 PM CDT): BMI Follow-up includes: nutrition counseling, exercise counseling and education provided. Assessment & Plan (08/11/2019 7:09 AM FREIGHT WEIGHER): BMI Follow-up includes: nutrition counseling, exercise counseling and education provided. Assessment & Plan (05/10/2019 11:00 AM CDT): BMI Follow-up includes: nutrition counseling, exercise counseling and education provided. Assessment & Plan (06/17/2018 8:15 AM CDT): BMI Follow-up includes: nutrition counseling, exercise counseling and education provided. Assessment & Plan (08/24/2017 3:27 PM FREIGHT WEIGHER): BMI Follow-up includes: nutrition counseling, exercise counseling [...] microalbumin today. Continue to avoid NSAIDs and wrzz-sei-evpbpdp supplements/cold medications. If worsening consider Nephrology consultation Nocturnal muscle cramp 02/08/2023 Assessment & Plan (02/08/2023 9:37 AM CDT): Will check magnesium level today. Encouraged adequate hydration throughout the day. Microscopic hematuria 11/11/2022 Assessment & Plan (02/08/2023 9:38 AM CDT): History of pyelonephritis August 2022. Recommend repeating UA today. Will check renal ultrasound considering increasing creatinine. Assessment & Plan (11/11/2022 11:18 AM FREIGHT WEIGHER): Was likely 2/[address] Will plan for annual UA and return to urology prn Urinary frequency 08/17/2022 Assessment & Plan (11/01/2023 12:53 PM FREIGHT WEIGHER): UA to rule out UTI Possible OAB Assessment & Plan (02/08/2023 9:38 AM CDT): Urinalysis ordered today. Recommend fluid restriction 2 hours prior to bed. Assessment & Plan (08/17/2022 7:05 PM FREIGHT WEIGHER): UA to rule out UTI Chronic bilateral thoracic back pain 05/26/2022 Assessment & Plan (05/26/2022 9:34 AM CDT): Refer to physical therapy and for x-rays. May use atov-muo-tpptaya NSAIDs p.r.n.. Other chest pain 04/24/2022 Assessment [...] 10/07/2021 Assessment & Plan (10/07/2021 3:01 PM FREIGHT WEIGHER): Sed rate, CRP and rheumatoid factor. Medicare annual wellness visit, subsequent 10/07 Assessment & Plan (10/07/2021 3:01 PM FREIGHT WEIGHER): A medicare annual wellness visit was completed today. Th patient completed a depression screen, functional assessment screen, health risk assessment screen. All elements of this exam were completed as outlined by CMS. Fatigue 09/24/2020 Assessment & Plan (11/01/2023 12:53 PM FREIGHT WEIGHER): Will rule out hypothyroidism, electrolyte derangements, liver/kidney dysfunction, anemia. Recent B12 level normal Assessment & Plan (05/26/2022 9:34 AM CDT): Improved with improvement in right shoulder pain after injection. Assessment & Plan (04/24/2022 5:32 PM CDT): Labs as ordered. Will check stress test today as well. Would consider sleep study if normal. Assessment & Plan (09/24/2020 11:05 AM FREIGHT WEIGHER): Check B12 and Vit D level. Anxiety 09/24/2020 Assessment & Plan (05/11/2023 5:26 PM CDT): Table Continue xanax prn Assessment & Plan (10/07/2021 3:01 PM FREIGHT WEIGHER): Stable. Continue Xanax 1 or 2 p.o. [...] sleep. Assessment & Plan (09/24/2020 11:05 AM FREIGHT WEIGHER): Alprazolam as prescribed Start wellbutrin 150 mg [...] 07/03/2020 Assessment & Plan (11/11/2022 11:19 AM FREIGHT WEIGHER): Continue tramadol 100mg qAM Discussed concerns about increasing frequency due to risk for dependence and tolerance Did not start the Rx'ed celebrex due to concerns about side effects Recommend starting aleve qhs to help with nighttime pain Continue HEP Assessment & Plan (08/17/2022 7:04 PM FREIGHT WEIGHER): Given persistent worsening symptoms with radiculopathy and muscle cramps potentially related to spinal stenosis as well as lack of improvement with conservative management including physical therapy and steroid injections, will obtain MRI of both thoracic and lumbar spine to determine next best steps Assessment & Plan (10/07/2021 3:00 PM FREIGHT WEIGHER): Increase in intensity and duration. Discussed referral [...] 01/04/2020 Assessment & Plan (09/24/2020 11:04 AM FREIGHT WEIGHER): Would like to start wellbutrin 150 mg daily to see if this helps. Assessment & Plan (01/04/2020 2:04 PM CDT): Continue xanax 1-2 tabs nightly New daily persistent headache 08/24/2017 Assessment & Plan (11/01/2023 1:52 PM FREIGHT WEIGHER): Broad differential including tension headache, migraine headache, intracranial neoplasm, aneurysm, dehydration Normal neuro exam If she has UTI, will wait to see if symptoms improve with tx If no UTI or headaches persist despite treatment of UTI, will obtain brain MRI for new onset headaches in individual > 45 years old Assessment & Plan (09/24/2020 11:02 AM FREIGHT WEIGHER): Stopped the cymbalta. Assessment & Plan (06/17/2018 8:39 AM CDT): Albino. Manages his tramadol p.r.n.. Assessment & Plan (08/24/2017 4:23 PM FREIGHT WEIGHER): Refer to Dr. Juan Gonzalez Neurology, patient [...] daily Assessment & Plan (11/11/2022 11:20 AM FREIGHT WEIGHER): Well controlled Continue adderall 20 daily Assessment & Plan (10/07/2021 3:00 PM FREIGHT WEIGHER): Albino. Continue Adderall 20 mg daily. Assessment & Plan (04/30/2021 7:18 AM CDT): Stable. Continue Adderall 20 mg daily. Assessment & Plan (09/24/2020 11:02 AM FREIGHT WEIGHER): Continues to take adderall 20 mg daily [...] policy. Assessment & Plan (08/11/2019 7:25 AM FREIGHT WEIGHER): Albino. Adderall 20 mg [address] Mcdermott. Assessment & Plan (06/17/2018 8:39 AM CDT): Stable. Manages with Adderall p.r.n.. Osteoarthritis 02/10/2014 Overview (12/31/2016): OA Resolved Problems Problem Noted Date Diagnosed Date Resolved Date Pressure sensation in ear, bilateral 11/11/2022 05/11/2023 Assessment & Plan (11/11/2022 11:22 AM FREIGHT WEIGHER): Suspect eustachian tube dysfunction Recommend flonase BMI 24.0-24.9, adult 05/26/2022 023 Assessment & Plan (05/26/2022 9:06 AM CDT): BMI Follow-up includes: nutrition counseling, exercise counseling and education provided. Impetigo 04/30/2021 05/11/2023 Assessment & Plan (04/30/2021 7:20 AM CDT): Bactroban ointment. Annual physical exam 09/24/2020 022 Assessment & Plan (09/24/2020 11:01 AM FREIGHT WEIGHER): Medication and allergies reviewed and updated. Past [...] Department Care Team Description 11/03/2024 11:00 AM FREIGHT WEIGHER Office Visit [facility] [address] [facility] [address] [facility] [address] [place] [phone] Danae Zuluaga NP Pain in both lower extremities (Primary Dx) 10/19/2024 11:30 AM FREIGHT WEIGHER Infusion [facility] Injection Therapy [address] [facility] [address] [facility] [address] [place] [address] Statin intolerance (Primary Dx); Elevated coronary artery calcium score; Mixed hyperlipidemia 10/06/2024 Telephone [facility] Infusion Therapy [address] [facility] [address] [facility] [address] [place] [address] Rose Joseph RN 10/03/2024 Telephone [facility] Cardiology [facility] [facility] 8th [place] [address] [place] [id number] Dana Beckham NP Repatha PA (Cara Monson) from Last 3 Months Immunizations Immunization Administration [...] SARS-CoV-2 Monovalen t Vaccination (12+ YRS) 08/30/2021,11/04/2020,10/08/2020 noodls SARS-CoV-2 Monovalent Vaccination (12+ Yrs) PURPLE 02/05/2022 [...] in breast Low back pain Anxiety Arthritis 2012 Family History Medical History Relation Name Comments [...] on file Legal Sex Female 11:31 PM FREIGHT WEIGHER Gender Identity Not on file Sexual Orientation Not on file Obstetrics History Last Filed Vital Signs Vital Sign Reading Time Taken Comments Blood Pressure 126/84 11/03/2024 11:01 AM FREIGHT WEIGHER Pulse 86 11/03/2024 11:01 AM FREIGHT WEIGHER Temperature 36.8 C (98.2 F) 08/15/2024 11:03 AM FREIGHT WEIGHER Respiratory Rate 16 08/15/2024 11:03 AM FREIGHT WEIGHER Oxygen Saturation 98% 11/03/2024 11:01 AM FREIGHT WEIGHER Inhaled Oxygen Concentration - - Weight 70.4 kg (155 lb 1.6 oz) 11/03/2024 11:01 AM FREIGHT WEIGHER Height 165.1 cm (5' 5 ) 11/03/2024 11:01 AM FREIGHT WEIGHER Body Mass Index 25.81 11/03/2024 11:01 AM FREIGHT WEIGHER Plan of Treatment Health Maintenance Due Date Last Done Comments Hepatitis B Screening 1973 Zoster Vaccine (2 of 3) 05/04/2017 03/09/2017 Covid-19 Vaccine (2023-2 5 season) 2024 02/05/2022, 02/05/2022, 08/30/2021, Additional [...] on stairs Contact your local community or [facility] for information on exercise, fall prevention programs, [...] CDT) Stool DNA - Cologuard Negative Negative [facility] (CLIA #:[id number]) Comment: NEGATIVE TEST RESULT. A negative Cologuard [...] screened with both Cologuard and colonoscopy. (Lakisha Torres. et al, N Engl J Med 2014;370(14):4606-1498) The normal value (reference range) for this assay is negative. COLOGUARD RE-SCREENING RECOMMENDATION: Periodic colorectal cancer screening is an important part of preventive healthcare for asymptomatic individuals at average risk for colorectal cancer. Following a negative Cologuard result, the [place] Cancer Society and U.S. Multi-Society Task Force screening guidelines recommend a Cologuard re-screening interval of 3 years. References: [place] [employer] Society Guideline for Colorectal Cancer Screening: https://www.cancer.org/cancer/rttkw-bfqbbp-bmbnzu/gzbzvdjij-dbyojqrcq-wmbsent/ac s-rec ommendations.html.; Aubrey MARTINEZ, Joe BURNETT, Crystal SerratoK, Colorectal Cancer Screening: Recommendations for Physicians and Patients from the U.S. Multi-Society Task Force on Colorectal Cancer Screening , Am J Gastroenterology 2017; 112:3162-2268. TEST DESCRIPTION: Composite algorithmic analysis of stool [...] Gallegos et al, N Engl J Med 2014;370(14):8759-0566.) Cologuard may produce a false negative or false positive result (no colorectal cancer or precancerous polyp present at colonoscopy follow up). A negative Cologuard test result does not guarantee the absence of CRC or advanced adenoma (pre-cancer). The current Cologuard screening interval is every 3 years. ([place] Cancer Society and U.S. Multi-Society Task Force). Cologuard performance data in a 10,000 patient pivotal study using colonoscopy as the reference method can be accessed at the following location: www.Science/results. Additional description of the Cologuard test process, warnings and precautions can be found at www.Playlogicrd.com. Stool 05/26/2024 8:52 AM CDT 05/27/2024 11:27 AM CDT Danae Zuluaga NP LAB BODY FLUIDS AND STOOLS O RDERABLES Final Result [facility] (CLIA #:[id number]) [address] [place] [address] * Dexa TBS Axial Skeleton Bone Density 1 or more sites (02/11/2024 11:50 AM CDT) Anatomical Region Laterality Modality Wrist, Body N/A Radiographic Kiera ging Narrative 02/14/2024 4:10 PM CDT Patient Name: Natasha Harrington Date of : 1955 Date of scan: 02/11/2024 Bone mineral density was performed on a Anedot Discovery Densitometer. Based on machine cross-calibration and [...] by the International Society of Clinical Densitometry. [id number] Mi Singh MD [facility] DXA PROCEDURES Final R esult * Screening Mammogram Bilateral W Hayder (12/08/2021) Anatomical Region Laterality Modality Breast Bilateral Mammography Impressions 12/08/2021 Negative screening mammagram BI RADS Category 1: Negative Follow up 1 year Historical Provider [facility] MAMMO PROCEDURES Nida l Result * Hepatitis [...] a test for HCV RNA (test code 86952) is suggested. For additional information please refer to http://education.[employer].CasaRoma/faq/EKG43k6 (This link is being provided for informational/ educational purposes only.) Blood specimen (specimen) 07/03/2020 10:34 AM CDT 07/04/2020 4:15 AM CDT Hoda Garcia MD LAB MICROBIOLOGY - GEN ERAL ORDERABLES Final Result [facility] [id number] [id number] * COLONOSCOPY (12/25/2016) Colonoscopy Normal Historical Provider HEALTH MAINTENANCE Final Result from Last 3 Months or Most Recently Relevant to Health Maintenance Insurance [employer] [facility]IC[facility] MEDICARE [facility] MEDICARE [employer] [place] [address] MEDICARE [employer] Care Teams Digital Circuit Designer Relationship Specialty [place] [id number] [facility] [address] [place] [address] PCP - General Internal Medicine 02/12/20 [place] [id number] [facility] [address] [place] [address] Rheumatology 08/02/17
--- OUTSIDE RECORDS SUMMARY | 2024-12-12 00:28 | XMS_ITS | Continuity of Care Document ---
Author Organization [facility] Address [address] [place] [address] Phone Care Team Providers Care Lab Support Service Tech Name Role Phone Osmar PT,MPT,ATC, Nacho Unavailable Unavai lable Procedures Procedure Date PRES/ABSN URINE INCON ASSESS PT Re-evaluation Therapeutic Activities Therapeutic Activities Neuromuscular Re-Ed Therapeutic Exercise Therapeutic Activities Neuromuscular Re-Ed Therapeutic Exercise Therapeutic Activities Neuromuscular Re-Ed Therapeutic Exercise Therapeutic Activities Neuromuscular Re-Ed Therapeutic Exercise Doc neg elder mal no plan PRES/ABSN URINE INCON ASSESS PT Evaluation High Complexity Therapeutic Activities Neuromuscular Re-Ed Advance Directives Directive Yes / No Effective Date File Name No Information Encounters Encounter Description Practice Location Reason(s) For Visit Diagnoses Date Provider Providers Copied on Encounter [facility], [address], [place], [place], [id number], [place] tel:[phone] [place] No Information b- 3 Osmar Webber , [place], [place]. Referring Provider: Rose Gilbert, [address], [place], [address]. tel:[phone] [facility] [address] [address], [place], [place], [id number], tel:[phone] [place] No Information 2 [address] [place], [place], . Referring Provider: Rose Gilbert, [address], [place], [address]. tel:[phone] [facility] [address] [place] [address], [place], [place], [id number], tel:[phone] [place] No Information [address] [place], [place], [place]. Referring Provider: Rose Gilbert, [address], [place], [address]. tel:[phone], [id number], tel:[phone] [place] No Information b0 3 [place], [place], [place]. Referring Provider: Gonzalo Mc[address], [place], [address]. tel:[phone] [facility] [address] [place] [address], [id number], tel:[phone] [place] No Information b0 3 [place], [place], [place]. Referring Provider: Rose Gilbert [address], [place], [address]. tel:[phone] [facility] [address] [address], [place], [place], [id number], [place] tel:[phone] [place] No Information b0 [address] [place], [place], [place]. Referring Provider: Rose Gilbert [address], [place], [address]. tel:[phone] Family History Family Member Type Diagnosis Age At Onset No Information Payers Payer name Insurance type Covered republican ID Authorkrupa miller(s) Medicare [place] [id number] [facility] [id number] Social History Type Description Quantity Date Captured Comments Alcohol Use Details Unknown Caffeine Use Details Unknown Tobacco Use Status Current non-smoker Smoking Status Never smoker Non-Smoking Tobacco Use Details : No Details Available : No Details Available Sex Female Chief Complaint And Reason For Visit No Information Reason For Referral Reason For Referral No Information History Of Present Illness Encounter Date Complaint History Of Prese nt Illness No Information Functional Status Date Functional Assessmen t No Information Instructions Date Instruction Additional Infor mation Giving encouragement to exercise Related to Overweight Giving encouragement to exercise Related to Overweight Assessments Type Assessment Date No Information Patient Care Teams Name Effective Dates (start - stop) Status Members No Information
--- OUTSIDE RECORDS SUMMARY | 2024-12-12 00:28 | XMS_ITS | Clinical Summary ---
Author Organization [facility] Address [address] [place] [address] Phone Care Team Providers Care Shipping Room Supervisor Name Role Phone Unavailable Unavailable Unavailable Reason for Visit and Chief Complaint * PHONE CALL Plan of Treatment - OTHER - Last Documented On 10/14/2010 3:38PM ; [facility] PHY ORDER/COMMENT I don't mind if she has pelvic U/S (dx=pelvic pain), but I wouldn't expect the enablex to work that quickly either so keep taking it - Last Documented On 10/14/2010 3:38PM ; [facility] Assessments Includes: Assessments from this encounter No Assessments Recorded Medical Equipment - Implanted Devices Includes: Current Devices No Medical Equipment Recorded Medications Includes: Medications discussed during this encounter and other current Medications Current Medications (continue as prescribed) traMADol HCl 50 MG OR TABS 12/11/2010 Provider: Diagnosis: Last Documented On 12/11/2010 8:47AM By YON XIONG ; [facility] Adderall 10 MG OR TABS 12/11/2010 Provider: Diagnosis: PRN Last Documented On 12/11/2010 8:48AM By YON XIONG ; [facility] Medications Administered Includes: Administered Medications [...] Diagnosis * PHONE CALL THIERRY LAGUERRE MD [facility] SHIFT COORDINATOR 1 3:16PM 11:59PM Clinical Notes Includes: Clinical Notes from this encounter No Clinical Notes Recorded
--- OUTSIDE RECORDS SUMMARY | 2024-12-12 00:28 | XMS_ITS | Clinical Summary ---
Author Organization [facility] Address [address] [place] [address] Phone Care Team Providers Care Grass Farm Laborer Name Role Phone Hoda Garcia MD Primary Care Provider [phone] Allergies No known active allergies Medications valACYclovir [...] Encounters Date Type Department Care Team Description 12/02/2024 External Device Data [facility] ABSTRACTION Provider, Abstract 12/01/2024 External Device Data [facility] Provider, Abstract 11/29/2024 External Device Data [facility] Provider, Abstract 11/28/2024 External Device Data [facility] Provider, Abstract 11/14/2024 External Device Data [facility] Provider, [...] on file Legal Sex Female 6:04 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 Gender Identity Not on file Sexual Orientation [...] Done Comments Pre-Diabetes and Diabetes Screening 1955 Traditional Medicare (ACO) A nnual Wellness Visit 1975 FIT-DNA Q 3 years 2001 FIT/FOBT Q [...] - 1-dose 75+ series) 2031 PNEUMOCOCCAL VACCINE 50+ YEARS Completed 05/12/2023 , 10/07/2021 Procedures Procedure [...] ASSESSMENT: BI-RADS 1 - Negative DICTATION LOCATION: [facility] Narrative 02/02/2024 4:48 PM CDT BILATERAL SCREENING DIGITAL [...] ASSESSMENT: BI-RADS 1 - Negative DICTATION LOCATION: [facility] us Sven Loco MD MAMMO ORDERABLES [...] the lumbar spine and hip(s) using a [employer] DEXA scanner for bone mineral density determination [...] Nix DO DICTATION LOCATION: Location 1 - [facility] Procedure Note Antonio Nix DO - 12/08/2021 XR DEXA BONE DENSITY AXIAL 1 OR MORE SITES DATE: 12/08/2021 11:02 AM HISTORY: 66 years old Female with post menopausal symptoms. PROCEDURE: Planar images of the lumbar spine and hip(s) using a [employer] DEXA scanner for bone mineral density determination [...] years thereafter Dictated by Dr. Antonio Nix, DO DICTATION LOCATION: Location 1 - [facility] Sven Loco MD DIAGNOSTIC IMAGING ORDERABLE S Final Result from Last 3 Months or Most Recently Relevant to Health Maintenance Insurance MEDICARE PART A AND B [employer] [facility] Care Teams Grass Farm Laborer Relationship Specialty Start Date End Date Hoda Garcia MD PCP - General Internal Medicine 10/29/20
--- OUTSIDE RECORDS SUMMARY | 2024-12-12 00:28 | XMS_ITS | Clinical Summary ---
Author Organization [facility] Address [address] [place] [address] Phone Care Team Providers Care Colorman Name Role Phone Unavailable Unavailable Unavailable Reason [...] - Last Documented On 10/09/2010 2:39PM ; [facility] Enablex 7.5 MG TB24, 1 daily, 90 days, 0 refills - Last Documented On 10/09/2010 2:39PM ; [facility] Urgency/nocturia with small cystocele. She was given handout on Kegel exercises and started on enablex 7.5 mg po daily. No h/o glaucoma. She was warned about dry mouth and recommended to use gum/mints to help instead of drinking extra fluids. She already avoids caffeine - Last Documented On 10/09/2010 2:39PM ; [facility] Assessments Includes: Assessments from this encounter Findings - Hyperactivity of the bladder - Last Documented On 10/09/2010 2:39PM ; [facility] - Cystocele - Last Documented On 10/09/2010 2:39PM ; [facility] Medical Equipment - Implanted Devices Includes: Current Devices No Medical Equipment Recorded Medications Includes: Medications discussed during this encounter and other current Medications New / Renewed during this visit THIERRY LAGUERRE MD on 10/09/2010 Enablex 7.5 MG OR TB24 Provider: THIERRY LAGUERRE MD 90 day supply: 90, 0 refills Diagnosis: Pharmacy: Alfonso Beck) - [address] , [facility], [phone] - Last Documented On 12/11/2010 8:47AM By YON XIONG ; [facility] Current Medications (continue as prescribed) traMADol HCl 50 MG OR TABS 12/11/2010 Provider: Diagnosis: Last Documented On 12/11/2010 8:47AM By YON XIONG ; [facility] Adderall 10 MG OR TABS 12/11/2010 Provider: Diagnosis: PRN Last Documented On 12/11/2010 8:48AM By YON XIONG ; [facility] Medications Administered Includes: Administered Medications from this encounter No Administered Medications Recorded Vital Signs Includes: Vital Signs from this encounter Vital Name 10/09/2010 02:00P Blood Pressure Sitting L 112/64 Pulse Rate-Sitting (bpm) 78 Weight (lb) 159.5 Last Documented: On 10/09/2010 2:07PM ; [facility] Results Includes: Results discussed during [...] 12/11/2010 Last Documented On 1 1:58PM ; [facility] Not sexually active 10/09/2010 Last Documented On 1 2:39PM ; [facility] In monogamous relationship 12/03/2009 Last Documented On 1 1:58PM ; [facility] Non-smoker 12/03/2009 Last Documented On 1 1:58PM ; [facility] Daily coffee consumption was three cups per day 10/10/2009 Last Documented On 1 1:58PM ; [facility] Marital history 10/10/2009 Last Documented On 1 1:58PM ; [facility] Sexually active with 1 partners in the l ast year 10/10/2009 Last Documented On 1 1:58PM ; [facility] Exercising regularly 10/10/2009 Last Documented On 1 1:58PM ; [facility] Smoking Status Unknown Medical History Includes: Medical History addressed during this encounter Description Last Updated Last mammogram date: 12/17/2009 1 Last Documented On 1 2:39PM ; [facility] Last pap smear date 12/03/2009 10/09/2010 Last Documented On 1 2:39PM ; [facility] 1 12/03/2009 Last Documented On 1 1:58PM ; [facility] History of menopause 12/03/2009 Last Documented On 1 1:58PM ; [facility] LMP: 200612/03/2009 Last Documented On 1 1:58PM ; [facility] Para 1 12/03/2009 Last Documented On 1 1:58PM ; [facility] Result: normal 12/03/2009 Last Documented On 1 1:58PM ; [facility] Result: normal 12/03/2009 Last Documented On 1 1:58PM ; [facility] 1 living children 10/10/2009 Last Documented On 1 1:58PM ; [facility] benign breast lump 10/10/2009 Last Documented On 1 1:58PM ; [facility] A breast self-exam was performed 010 Last Documented On 1 1:58PM ; [facility] A mammogram was performed 08/0410/10/19 10 Last Documented On 1 1:58PM ; [facility] Partner with vasectomy 10/10/2009 Last Documented On 1 1:58PM ; [facility] Family History Includes: Family History addressed during this encounter Description Last Updated Family history of malignant neoplasm of the ovary MAT GMA 12/03/2009 Last Documented On 1 1:58PM ; [facility] No family history of diabetes mellitus 0 12/03/2009 Last Documented On 1 1:58PM ; [facility] No family history of malignant female br east neoplasm 12/03/2009 Last Documented On 1 1:58PM ; [facility] No family history of malignant neoplasm of the large intestine 12/03/2009 Last Documented On 1 1:58PM ; [facility] Review of Systems Includes: Review of [...] Time Diagnosis PROBLEM VISIT THIERRY LAGUERRE MD [facility] [employer] WORKER 10/09/19 11 1:55PM 2:35PM Bladder Hyperactivity ,Cystocele Clinical Notes Includes: Clinical Notes from this encounter No Clinical Notes Recorded
--- OUTSIDE RECORDS SUMMARY | 2024-12-12 00:28 | XMS_ITS | Referral Summary ---
Author Organization [facility] Address [address] [place] [address] Care Team Providers Care Glass Smoother Name Role Phone Unavailable Primary Care Provider Unavailabl e Source Comments [facility],non-owned Affiliates and Associated Physician Practices is amultiple site organization consisting of ambulatory clinics and hospital sitesin [place], [place], [place] and [place]. This disclosure is being madepursuant to the Care Everywhere program and may not contain all information available regarding this patient. Last updated 18.[facility] [employer] Social History Tobacco Use Types Packs/Day Years Used Date Smoking Tobacco: Never Assessed Sex and Gender Information Value Date Recorded Sex Assigned at Not on file Gender Identity Not on file Sexual Orientation Not on file Plan of Treatment Not on file
--- NOTE | 2024-12-12 08:17 | P.PNAN_ITS ---
Anes - Initial Pre Proc Eval Procedure: Operation Date: 12/12/24 10:30 Proposed Procedures p Left Total Knee Arthroplasty - Franklin Wood MD Date/Time: 12/12/24 08:17 Surgeon: Franklin Wood MD Pre Op Diagnosis: Prim O A Lt Knee Patient Data Age: 69 Gender: F Height: 1.63 m Weight: 70 kg Last Vital Signs Temp 36.7 C 11/20/24 11:32 Pulse 78 11/20/24 11:32 Resp 16 11/20/24 11:32 BP 149/78 H 11/20/24 11:32 Pulse Ox 100 11/20/24 11:32 O2 Del Method Room Air 11/20/24 11:32 Allergies Allergy/AdvReac Type Severity Reaction Status Date / Time oxycodone Allergy Unknown NAUSEA Verified 12/12/24 09:33 Home Medications ?Medication ?Instructions ?Recorded ?Confirmed ?Type alprazolam 0.25 mg tablet (Xanax) 0.25 mg PO QHS PRN anxiety 10/10/21 11/20/24 History dextroamphetamine-amphetamine 20 20 mg PO DAILY 10/10/21 12/12/24 History mg tablet (Adderall) tramadol 50 mg tablet 50 mg PO Q6H PRN pain 10/10/21 11/20/24 History aspirin 81 mg tablet,delayed 81 mg PO DAILY 11/20/24 12/12/24 History release calcium carbonate 600 mg PO DAILY 11/20/24 12/12/24 History inclisiran 284 mg/1.5 mL 284 mg subcut [id number] 11/20/24 11/20/24 History subcutaneous syringe (Leqvio) magnesium 250 mg tablet 250 mg PO DAILY 11/20/24 12/12/24 History pyridoxine (vitamin B6) 100 mg 100 mg PO DAILY 11/20/24 12/12/24 History tablet turmeric root extract 500 mg 500 mg PO DAILY 11/20/24 12/12/24 History capsule vitamin E mixed 100 unit tablet 135 mg PO DAILY 11/20/24 12/12/24 History aspirin 81 mg tablet,delayed 81 mg PO BID 14 days #28 tabs 12/12/24 Rx release hydrocodone 5 mg-acetaminophen 325 1 - 2 tablet PO Q4-6H PRN pain 7 12/12/24 Rx mg tablet days #30 tabs meloxicam 15 mg tablet 15 mg PO DAILY #30 tabs 12/12/24 Rx prednisone 5 mg tablet 5 mg PO DAILY 3 weeks #21 tabs 12/12/24 Rx Patient hx anesthesia problems: none Family hx anesthesia problems: none Results Review: All pre-operative results and documents have been reviewed as part of the pre- operative evaluation. [facility] Past Medical History Medical History (Updated 12/12/24 @ 08:18 by Gelacio Barreto DO) Chronic, continuous use of opioids tramadol Popliteal cyst left knee Primary osteoarthritis of left knee Surgical History Surgical History (Updated 12/12/24 @ 07:23 by JEN Landon) Status post right partial knee replacement (~06/2019) Family History Family History Mother Family history of congenital heart disease Father Family history of lymphoma Social History Social History Smoking status: Never smoker Alcohol intake: never Substance use: never Do You Feel Safe in your Home?: Yes Lack of Transportation: No Lack of Food: Never True Current Housing: I Have Housing Concerned About Future Housing: No Difficulty Paying Gas/Electric Bills: No Difficulty Paying for Meds: No Currently Unemployed: No Education: Associate Degree Difficulty w/ Childcare or Family Care: No Additional living arrangements comments: Reina Melvin Final PreProcedure Day of Procedure 12/12/24 08:17 Patient weight: overweight Heart: regular rate and rhythm Lungs: clear to auscultation Airway: Mallampati scale class III Neurological: alert and oriented Last oral intake: >/= 8 hours ASA classification: II Emergent: no Anesthetic plan: proceed Anesthesia type and monitoring: general LMA and standard monitoring Results Review: All pre-operative results and documents have been reviewed as part of the pre- operative evaluation. Informed Consent: The patient's anesthetic plan and its attendant risks and benefits were discussed with the patient/family/POA. Questions were solicited and answers provided to the satisfaction of the patient/family/POA.
[2024-12-12] MEDS: ACETAMINOPHEN 500 MG TABLET 1000 MG PO (09:20)
[2024-12-12] MEDS: LACTATED RINGERS 1,000 ML 30 ML IV CONT ×2 (09:20→12:43)
[2024-12-12] MEDS: TRANEXAMIC ACID 1,000MG/ISO100 1,000 MG/100 ML BAG 200 MG IVPB (09:20)
--- NOTE | 2024-12-12 10:10 | WPDHPUPDATE1 ---
History and Physical Update Update Date/Time: 12/12/24 10:10 History and Physical has been reviewed, including an updated exam of the patient. There are NO changes in the patient's condition. Risks, benefits, and alternatives have been discussed and questions answered. Patient agrees to proceed with procedure.
[2024-12-12] MEDS: ceFAZolin 2 GM/D5W 50 ML 2 GM/50 ML BAG IVPB ×2 (10:24→18:35)
[2024-12-12] MEDS: SODIUM CHLORIDE 0.9% IV 38.7 ML, ROPivacaine HCL 1% 200 MG, KETOROLAC INJ (*BKC) 15 MG,... INFILTRATE (10:57)
[2024-12-12] MEDS: fentaNYL CITRATE INJ (*CRX) 100 MCG/2 ML VIAL 25 MCG IV PUSH ×8 (12:44→13:20)
--- NOTE | 2024-12-12 13:00 | P.OP_ITS ---
Procedure Note - Detailed Date of Procedure 12/12/24 Pre-op Diagnosis Left knee degenerative arthritis. Post-op Diagnosis Same Procedure Performed Calipered, kinematically aligned total knee replacement left knee. Surgeon Farnklin Wood MD Still Operator Batch Or Continuous Yris Coleman PA-C Anesthesia General Indications Good bone quality. No releases. Findings According to the calipered kinematic alignment principles, the knee was balanced by the following verification checks incorporating 6 caliper measurements, using an insert goniometer to select the insert thickness, and adjusting the tibial resection following the kinematic alignment algorithm (see figure 160.10 published in [employer] chapter on kinematic alignment total knee arthroplasty.) The steps verified the femoral and tibial components were kinematically aligned coincident to the patient's pre arthritic joint lines, which closely restored the cloverdale tibial compartment forces and ligament laxities without ligament release. The Topixa [employer] SperiKA knee, designed specifically for kinematic alignment, fit optimally. The record of verification checks were documented and scanned into the chart. Distal Femoral Resection: Distal Medial 6.5 mm(cartilage worn), Distal Lateral 8 mm Target thickness of 8mm Unworn, 6mm Worn (No Cartilage). Posterior Femoral Resection: Posterior Medial 5 mm(cartilage worn), Posterior Lateral 7 mm. Target thickness of 7mm Unworn, 5mm Worn (No Cartilage). Description of Procedure General anesthesia was administered. A well-padded tourniquet was placed high on the thigh. The limb was prepped and draped in the usual sterile fashion. The limb was exsanguinated and the tourniquet inflated to 300 mmHg. A longitudinal incision was created over the midline of the knee. Sharp dissection was taken through subcutaneous tissues. Electrocautery was used for hemostasis. A subvastus approach to the knee joint was performed. The ACL, anterior horns of the menisci, and fat pad were excised, and a subperiosteal dissection was carried along the posterior medial border of the tibia. The thickness of the cloverdale patella was measured with a caliper. The patella was resected using the oscillating saw. The best fitting anatomic patella button was selected. The fixation holes were drilled. When the patella and patella buttons combined thickness was thicker than the cloverdale patella, the patella was recut. Starting midway between the top of the notch in the anterior femoral cortex, I drilled a 9 mm diameter hole parallel to the anterior cortex to minimize flexion of the femoral component and promote patella tracking. I verified the existence of a 5-10 mm bone bridge between the posterior aspect of the hole and the anterior limit of the intercondylar notch. An intraosseous positioning alessandro was inserted 10 cm into the femur perpendicular to the distal joint line and parallel to the anterior cortex. I used a distal femoral referencing guide that compensated 2 mm when the cartil age was worn on the distal medial femoral condyle, and 2 mm when the cartilage was worn on the distal lateral femoral condyle. The basis for setting the distal and posterior femoral resection guide is knowing that the varus and valgus grade II to IV Kellegren-Ramses osteoarthritic knees have negligible bone wear at 0? and 90? and that the mean full-thickness cartilage wear approximates 2 mm. I measured the thickness of distal femoral resections with a caliper to +/- 0.5 mm. The thickness of each resection was adjusted to match the thickness of the respective condyle of the femoral component within 0.5 mm of target after compensating for cartilage wear and kerf. When the distal resection was 1-2 mm too thin, a recut guide was used to adjust the cut. When the distal resection was too thick, a 1 or 2 mm thick washer was fixed to the back of the 4-in-1 chamfer block to mihir a corrective gap between the femoral component and distal femur. I set posterior femoral referencing guide at 0? orientation to position the pin holes for the 4 in 1 chamfer block. The sergey wing measured the width of the distal femoral resection and selected the size of the 4 in 1 chamfer block and femoral component. The AP sizer confirmed the size. I measured the thickness of the posterior femoral resections with a caliper before making the anterior and chamfer cuts. I adjusted the thicknesses of each resection to match the thickness of the respective condyle of the femoral component within +/-0.5 mm after compensating for cartilage wear and curve. When a posterior resection femoral resection was 1-2 mm too thick or thin a corrective correction was made by shifting or rotating the 4 in 1 chamfer block as needed. The chamfer block was secured in the correct position with compression screws. The anterior and chamfer femoral resections were made. These caliper measurements and corrections verified that the femoral component was set coincident with the patient's pre-arthritic distal and posterior femoral joint lines. I removed all the medial and lateral femoral and tibial osteophytes to restore the pre arthritic length of the medial and lateral collateral ligaments. I lisbeth AP lines along the major axis of the lateral tibial plateau in between the tibial spines which identified the flexion extension plane of the knee. A conventional extramedullary tibial resection guide was applied to the ankle. An sergey wing was placed medially in the saw slot. The varus valgus angle of the tibial resection guide was adjusted until the guide paralleled the proximal tibial articular surface after compensating for cartilage and bone wear. The slope of flexion extension angle of the tibial resection guide was adjusted until the sergey wing paralleled the slope of the medial tibia after compensating for wear. The AP axis of the tibial resection guide was adjusted parallel to the two lines. The proximal tibia was resected, partially releasing the insertion of the posterior cruciate ligament. The thickness of the medial and lateral lateral tibial condyle was measured at the base of the tibial spines. I visually verified the slope of the medial border of the resection was parallel to the patient's pre arthritic slope after compensating for cartilage and bone wear. I removed the remnants of the posterior horns of the menisci and posterior osteophytes and cauterized the inferior lateral genicular vessels. The Aquamantys bipolar device was also used to for additional hemostasis. When the knee had a preoperative flexion contracture of 20? or more I teased the capsule off the posterior femur with a curved 3 quarter-inch osteotome. I administered the posterior femoral periosteal injection by delivering 10 cc using a 20 gauge spinal needle at the most medial and 10 cc at the most lateral femoral spur surface which reduced the risk of injury to the posterior neurovascular structures. I followed 6 options in a decision tree to fine tune the varus valgus and posterior slope orientation of the tibial component to restore the patient's pre arthritic tibial joint line and limb alignment. First, I adjusted the varus- valgus orientation of the proximal tibia resection working in 1 degree to 2 degree increments until there was negligible medial and lateral lift off of the distal femoral and proximal tibial resection from the spacer block during a varus valgus laxity assessment in extension. I selected the largest anatomic shape trial tibial base plate that fit within the cortical boundary of the proximal tibial resection. The base plate was best fit parallel to the cortical boundary which set the Internal-external orientation of the anterior to posterior and medial to lateral positions. The best fit method set the AP axis of the tibial base plate and insert parallel to the flexion extension plane of the pre arthritic knee. I pinned the trial tibial base plate, prepared the cruciate slot, and fixed the base plate to the tibia with the cruciate stem. I inserted the trial femoral component. The knee was placed in full extension. Varus valgus laxity is of the knee with trial components were assessed. When asymmetric laxity was observed a 1-2 de gree varus or valgus recut guide was used to fine tune the tibial resection until the laxity was 1 degree or less in full extension like the cloverdale knee. The following steps determined the optimal insert thickness within +/-1 mm. First I inserted an insert goniometer that matched the thickness of the spacer block. I reduced the patella and then with the knee in maximum extension, I verified the knee hyperextended a few degrees and had negligible varus valgus laxity, like the pre arthritic knee. Next, I measured the external tibial orientation which was the angle the insert goniometer intersected the sagittal line on the medial condyle of the femoral trial component. Then with the knee in 15-30 degrees flexion I verified a 3-4 mm gap in the lateral compartment and no gap in the medial compartment during a 2nd varus valgus laxity test. Next, I placed the knee in 90? of flexion and the foot resting on the operating table and measured the internal tibial orientation. I repeated the steps until I identified the insert thickness that provided the highest external tibia orientation in extension and the highest internal tibial orientation at 90? flexion without anterior lift-off of the insert from the tibial base plate. The insert with this thickness was implanted. I applied a posterior drawer test with the tibia distracted by gravity and verified no posterior subluxation of the tibia relative to the femur. The patella remained centered on the trochlea and tracked well throughout the entire arc of flexion and extension. I used pulse lavage to clean the bony surfaces of debris and dried bone. I cemented the tibial, femoral, and patellar components using 1 bag of methylmethacrylate with Gentamycin, then rechecked the stability at full extension, 15-30 degrees, and 90? flexion and verified faith of the entire arc of motion of the knee. The circulating nurse confirmed the sponge and needle counts were correct. I used pulse lavage to rinse the joint and wound. The extensor mechanism was closed with interrupted #1 Vicryl suture and #1 running Stratafix suture. The subcutaneous layer was closed with interrupted #1 Vicryl suture followed by 2-0 Stratafix and 3-0 Stratafix. Steri-Strips placed on the skin. Silver impregnated occlusive dressing applied to the wound. A light gauze wrap and Westley bandage were placed. The patient was transferred to the recovery room in stable condition. There were no complications. Implants Medacta K spheriKA Femoral component SpheriKA size 3+, tibial component size 3, vitamin-E flex insert, thickness 11mm, Anatomic patella implant size 2. Estimated Blood Loss 20 Drains No Pathology None sent Complications No immediate complications Condition Stable Disposition PACU [facility] Billing Surgery - Charge Forward: Surgery Billing
[2024-12-12] MEDS: HYDROmorphone HCL INJ (*CRX) 1 MG/ML SYR 0.5 MG IV PUSH ×6 (13:26→14:31)
[2024-12-12] MEDS: predniSONE 5 MG TABLET PO (16:41)
[2024-12-12] MEDS: ACETAMINOPHEN 325 MG TABLET 650 MG PO ×2 (16:41→23:17)
[2024-12-12] MEDS: SENNA/DOCUSATE SODIUM TABLET 2 TAB PO (16:41)
--- NOTE | 2024-12-12 18:31 | ADMGEN ---
This patient, Natasha Harrington, was admitted to 3 Med Surg Room 317-01. Patient/family oriented to hospital policies and general routines including ID bracelet, bed and alarms, visiting hours, pain management, procedures, bathroom and other care routines, personal items, smoking policy, room service/diet, and visiting hours. Information on how to activate the Rapid Response Team has been discussed. Patient/Family are encouraged to report perceived risks to care and to ask questions if they do not understand what they are told or what they should do.
[2024-12-12] MEDS: ASPIRIN 81 MG ENTERIC TABLET PO (20:16)
[2024-12-12] MEDS: FAMOTIDINE 20 MG TABLET PO (20:17)
[2024-12-12] MEDS: HYDROcodone/acetaminophen (*CRX) 5-325 MG TABLET 1 TAB PO (21:40)
[2024-12-13] MEDS: ceFAZolin 2 GM/D5W 50 ML 2 GM/50 ML BAG IVPB (02:06)
[2024-12-13 04:00] VITALS: BP 138/61; PULSE 80; RESP 18; TEMP 36.4; O2SAT 100
[2024-12-13] MEDS: HYDROcodone/acetaminophen (*CRX) 5-325 MG TABLET 1 TAB PO ×2 (05:25→09:35)
[2024-12-13] MEDS: ACETAMINOPHEN 325 MG TABLET 650 MG PO (05:25)
[2024-12-13 06:23] LABS: Basophils Percent Auto 0.3 % (0.2-1.2); Eosinophils Percent Auto 0.3 % (0-4.4); Hematocrit 35.5 % (37.0-47.0); Hemoglobin 11.5 g/dL (12.0-15.0); Immature Granulocyte Absolute 0.03 K/mm3 (0.00-0.031); Immature Granulocyte Percent A 0.3 % (0-0.5); Lymphocytes Absolute Auto 0.94 K/mm3 (0.9-3.2); Lymphocytes Percent Auto 8.8 % (18.3-44.2); Mean Corpuscular HGB Conc 32.4 g/dl (32-36); Mean Corpuscular Hemoglobin 30.9 pg (26-34); Mean Corpuscular Volume 95.4 fl (80-100); Mean Platelet Volume 8.8 fl (7.4-10.4); Monocytes Absolute Auto 1.4 K/mm3 (0.1-0.6); Monocytes Percent Auto 13.3 % (2.6-8.5); Neutrophils Absolute Auto 8.2 K/mm3 (1.3-6.7); Platelet Count Result 282 k/mm3 (150-375); Red Blood Count 3.72 M/mm3 (4.2-5.4); Red Cell Distribution Width 12.9 % (11.5-14.5); White Blood Count 10.7 K/mm3 (4.5-10.0)
[2024-12-13 06:36] LABS: Anion Gap 7 mmol/L (4-12); Blood Urea Nitrogen 21 mg/dL (7-17); Calcium 9.4 mg/dL (8.4-10.2); Carbon Dioxide 25 mmol/L (22-30); Chloride 103 mmol/L (98-107); Estimated CRCL calculation 31 ml/min; Estimated Glomerular Filt Rate 39; Glucose 92 mg/dL (65-110); Potassium 5.3 mmol/L (3.4-5.0); Sodium 135 mmol/L (137-145)
[2024-12-13 08:00] VITALS: BP 111/54; PULSE 78; RESP 14; TEMP 37; O2SAT 99
[2024-12-13] MEDS: ASPIRIN 81 MG ENTERIC TABLET PO (09:35)
[2024-12-13] MEDS: polyethylene glycoL 3350 17 GM POWD.PACK PO (09:35)
[2024-12-13] MEDS: FAMOTIDINE 20 MG TABLET PO (09:35)
[2024-12-13] MEDS: SENNA/DOCUSATE SODIUM TABLET 2 TAB PO (09:35)
== END 2024-12-13 10:58 | disposition home or self-care (01) ==
LOC: ANHSURGERY 08:52 → ANH3MEDSUR 15:17
PROVIDERS: Physician Assistant Surgical; PCP Internal Medicine; Visit Provider Orthopaedic Surgery
PROC: (CPT 27447; principal; 2024-12-12 10:30)
DX: M17.12 Unilateral primary osteoarthritis, left knee (principal); M25.762 Osteophyte, left knee; Z79.891 Long term (current) use of opiate analgesic; Z79.51 Long term (current) use of inhaled steroids; Z79.52 Long term (current) use of systemic steroids; Z98.890 Other specified postprocedural states; Z80.7 Family history of other malignant neoplasms of lymphoid, hematopoietic and related tissues; Z82.49 Family history of ischemic heart disease and other diseases of the circulatory system
CPT/HCPCS: 27447; 36415; 73560; 80048; 85025; 86850; 86900; 86901; 97110; 97161; 97165; 97530; 97535; C1776; A9270; C1713; J0171; J0690; J1100; J1171; J1885; J2003; J2250; J2405; J2704; J2795; J3010; J7120; J7512